=== PATIENT | male | born 1935 | race Caucasian/White ===

== ENCOUNTER 2019-10-30 21:38 | Emergency (ER) | payer MEDICARE, OTHER, SELFPAY ==
[2019-10-30 21:53] VITALS: BP 176/119; PULSE 101; RESP 16; TEMP 36.4; O2SAT 96; BMI 25.5
[2019-10-30 22:38] LABS: Add Urine Microscopic? NO
[2019-10-30 22:43] LABS: Basophils # 0.1 10^3/uL (0.0-0.1); Eosinophils # 0.1 10^3/uL (0.0-0.8); Eosinophils % 1.2 %; Hemoglobin 15.1 g/dL (11.7-16.6); Lymphocytes # 1.3 10^3/uL (0.8-4.8); Lymphocytes % 11.2 %; Mean Corpuscular HGB Conc 32.8 g/dL (30.0-36.0); Mean Corpuscular Volume 94.5 fL (80-94); Monocytes # 1.5 10^3/uL (0.2-0.9); Monocytes % 12.8 %; Neutrophils # 8.5 10^3/uL (1.8-7.7); Neutrophils % 73.6 %; Nucleated Red Blood Cells % 0 %; Platelet Count 224 10^3/cmm (130-400); Red Blood Count 4.87 10^6/uL (4.1-5.3); White Blood Count 11.5 10^3/uL (4.0-10.0)
[2019-10-30 22:50] LABS: Bilirubin Urine Neg (NEGATIVE); Blood Urine Neg (Negative); Glucose Urine UA Norm (Normal); Ketones Urine Negative (Negative); Leukocyte Esterase Urine Negative (Negative); Nitrate Urine Negative (Negative); Protein Urine Neg (Negative); Specific Gravity, Urine 1.005 (1.005-1.030); Urine Appearance Clear (CLEAR); Urine Color Yellow (Yellow); Urobilinogen Urine Norm (Negative); pH Urine 6.5 (5-7)
[2019-10-30 23:04] LABS: Alanine Aminotransferase 19 U/L (0-41); Albumin Level 4.8 g/dL (3.5-5.2); Alkaline Phosphatase 99 IU/L (40-130); Anion Gap 14.2 (5-19); Aspartate Amino Transferase 24 U/L (0-40); Blood Urea Nitrogen 23 mg/dL (8-23); Calcium 10.2 mg/Dl (8.8-10.2); Carbon Dioxide 28 mmol/L (22-29); Chloride 99 mmol/L (98-107); Globulin 2.8 g/dL (1.3-4.6); Glucose 144 mg/dL (74-106); Potassium 4.2 mmol/L (3.5-5.1); Sodium 137 mmol/L (136-145); Total Bilirubin 0.9 mg/dL (0.15-1.2); Total Protein 7.6 g/dL (6.6-8.7)
[2019-10-31 00:58] VITALS: BP 180/114; PULSE 92; RESP 18; O2SAT 96
--- NOTE | 2019-10-31 01:05 | ED_ITS ---
Entered by Marino Keys, acting as scribe for Oct 30, 2019 21:38 HPI - Male Genitourinary General: Chief complaint: Urogenital-Male Stated complaint: difficulty urinating Time Seen by Provider: 10/31/19 01:05 Source: patient Mode of arrival: ambulatory Limitations: no limitations History of Present Illness: HPI Narrative: 84 yo m came to the er pov with spouse for unable to urinate. Onset was today. Pt states that he can only go a few drops at this time. Pt states that he has not been able to urinate all day and that he is in alot of pain. Pt states that he is very bloated. PT also states that he took miralax this morning due to also being constipated. MD Complaint: testicle pain Onset (ago): day(s) (today) Duration: constant Severity: moderate Relieving factors: none Exacerbating factors: urination Associated symptoms: Reports swelling Review of Systems General: Reports: 10 or more systems reviewed and unremarkable except in HPI and below Const: Denies: fever Eyes: Denies: change in vision ENMT: Denies: throat pain Card: Denies: chest pain Resp: Denies: shortness of breath GI: Denies: abdominal pain : Reports: difficulty urinating and decreased urine ouput; Denies: flank pain Musc: Denies: neck pain Skin/Breast: Denies: rash Neuro: Denies: headache Psych: Denies: anxiety Endo: Denies: excessive urination Andrzej/Lymph: Denies: easy bruising All/Imm: Denies: hives PFSH ED PFSH: Statuses (acute, chronic, etc) shown below reflect problem list status as previously entered and may not be historically accurate Social History Smoking and tobacco status: never smoked Physical Exam Const: COMMON NORMALS: oriented x3 and alert Resp: COMMON NORMALS: clear to auscultation bilaterally EFFORT & INSPECTION: Yes able to speak in complete sentences, No tachypneic and No respiratory distress AUSCULTATION: clear to auscultation bilaterally Cardio: COMMON NORMALS: regular rhythm RHYTHM: regular rhythm HEART SOUNDS: no murmurs GI: COMMON NORMALS: soft to palpation INSPECTION: Yes abdominal distension AUSCULTATION: Yes normoactive bowel sounds PALPATION: Yes soft and Yes tender Details: other (Suprapubic) : COMMON NORMALS: Yes no CVA tenderness BLADDER/KIDNEY EXAM: Yes no CVA tenderness Back/Pelvis: COMMON NORMALS: no CVA tenderness Extremity: GENERAL: Yes normal exam except as noted Neuro: COMMON NORMALS: oriented x3 SENSORIUM/ORIENTATION: Yes alert Course Vital Signs: Vital signs: Vital Signs Temperature 98.3 F 10/31/19 02:07 Pulse Rate 74 10/31/19 02:07 Respiratory Rate 18 10/31/19 02:07 Blood Pressure 182/88 10/31/19 02:07 Pulse Oximetry 96 10/31/19 02:07 MDM - Male MDM Narrative: Medical decision making narrative: Patient was bladder scanned with greater than a liter found. Ruiz catheter was placed with decompression of the bladder and significantly decreased symptoms. He will be allowed home with a leg bag to follow-up either with his primary care physician, or urology if his PCP is not comfortable managing the Ruiz Lab Data: Labs: Lab Results 10/30/19 10/30/19 10/30/19 Range/Units 21:44 22:34 22:34 WBC 11.5 H (4.0-10.0) 10^3/ uL RBC 4.87 (4.1-5.3) 10^6/u L Hgb 15.1 (11.7-16.6) g/dL Hct 46.0 (42.0-52.0) % MCV 94.5 H (80-94) fL MCH 31.0 (28.0-34.0) pg MCHC 32.8 (30.0-36.0) g/dL RDW 13.0 (12.1-15.1) % Plt Count 224 (130-400) 10^3/c mm MPV 10.0 (7.4-10.4) fL Neut % (Auto) 73.6 % Lymph % (Auto) 11.2 % Ellis % (Auto) 12.8 % Eos % (Auto) 1.2 % Baso % (Auto) 1.0 % Neut # (Auto) 8.5 H (1.8-7.7) 10^3/u L Lymph # (Auto) 1.3 (0.8-4.8) 10^3/u L Ellis # (Auto) 1.5 H (0.2-0.9) 10^3/u L Eos # (Auto) 0.1 (0.0-0.8) 10^3/u L Baso # (Auto) 0.1 (0.0-0.1) 10^3/u L Nucleated RBC % (a uto) 0 % Nucleated RBCs # 0.0 /100WBC Sodium 137 (136-145) mmol/L Potassium 4.2 (3.5-5.1) mmol/L Chloride 99 (98-107) mmol/L Carbon Dioxide 28 (22-29) mmol/L Anion Gap 14.2 (5-19) BUN 23 (8-23) mg/dL Creatinine 0.9 (0.7-1.2) mg/dL Glucose 144 H (74-106) mg/dL Calcium 10.2 (8.8-10.2) mg/Dl Total Bilirubin 0.9 (0.15-1.2) mg/dL AST 24 (0-40) U/L ALT 19 (0-41) U/L Alkaline Phosphata se 99 (40-130) IU/L Total Protein 7.6 (6.6-8.7) g/dL Albumin 4.8 (3.5-5.2) g/dL Globulin 2.8 (1.3-4.6) g/dL Urine Color Yellow (Yellow) Urine Appearance Clear (CLEAR) Urine pH 6.5 (5-7) Ur Specific Gravit y 1.005 (1.005-1.030) Urine Protein Neg (Negative) Urine Glucose (UA) Norm (Normal) Urine Ketones Negative (Negative) Urine Occult Blood Neg (Negative) Urine Nitrate Negative (Negative) Urine Bilirubin Neg (NEGATIVE) Urine Urobilinogen Norm (Negative) mg/dL Ur Leukocyte Sarah ase Negative (Negative) Discharge Plan Discharge Patient Disposition: Home, Self-Care Clinical Impression: Acute retention of urine Condition: Stable Prescriptions: No Action Amino Acid PO DAILY RF: 0 aspirin 81 mg Tablet,Delayed Release (Dr/Ec) 81 mg PO DAILY RF: 0 tamsulosin 0.4 mg Capsule 0.4 mg PO DAILY RF: 0 diltiazem HCl 120 mg Capsule,Extended Release 24 Hr 120 mg PO DAILY RF: 0 esomeprazole magnesium 40 mg Capsule,Delayed Release(Dr/Ec) 40 mg PO DAILY RF: 0 Vytorin 10-20 10-20 mg Tablet 1 tab PO QPM RF: 0 Vesicare 10 mg Tablet 10 mg PO DAILY RF: 0 Glucosamine PO DAILY RF: 0 Multi Vitamin PO DAILY RF: 0 Viagra PO PRN PRN (Reason: intercourse) RF: 0 Vitamin B-12 PO DAILY RF: 0 Discharge Orders: Discharge Order (Routine); Ordered 10/31/19 Ordered By: Phong Looney Referrals: Deshaun Marie MD [Physician] - 4-7 days Tamiko Louis DO [Primary Care Provider] - Discharge Diet: Usual diet Discharge Activity: Resume usual activity Patient Instructions: Urinary Retention in Men (ED), Ruiz Catheter Placement and Care (ED), Urinary Leg Bag (GEN) Activity Restrictions/Additional Instructions: Return for increasing pain, blood in the urine, fever, mental status changes, other concerning symptoms. Follow-up with your doctor, or urology next week. Call for an appointment. Discharge Date/Time: 10/31/19 02:32 Coding Level of Care Code ED Lightning Protection Installer for Chg Fwd The documentation recorded by the Massimo baker Stephanie Lyn, accurately reflects the service I personally performed and the decisions made by Aayush jorgensen Jeremy John, DO Oct 30, 2019 21:38
--- NOTE | 2019-10-31 01:25 | PC.NURSE ---
bladder scan done on patient per ED physician verbal order. bladder scanner scanned >999ml in bladder. ed physician notified.
[2019-10-31 02:07] VITALS: BP 182/88; PULSE 74; RESP 18; TEMP 36.8; O2SAT 96
--- NOTE | 2019-11-02 15:26 | DCPLANNER ---
manager car had message to schedule a follow up appointment for patient with Dr. Marie. manager car spoke with Sena, gave clinic patients information. manager car was told that patients information would be printed and given to Pippa for review. Clinic will call patient with appointment information, caseworker protective services will call clinic for appointment information.
--- NOTE | 2019-11-03 13:48 | DCPLANNER ---
Patient has a follow up appointment scheduled for October, at 2:00. Patient is aware of appointment.
--- NOTE | 2019-11-18 15:17 | DCPLANNER ---
Patient did attend appointment with Frank.
== END 2019-10-31 02:32 | disposition home or self-care (01) ==
PROVIDERS: Physician Assistant; Emergency Provider Emergency Medicine; PCP Family Medicine
DX: R33.9 Retention of urine, unspecified (principal)
CPT/HCPCS: 51702; 80053; 81003; 85025; 99282

== ENCOUNTER → 2019-11-16 09:59 | Outpatient (BNVA) | payer MEDICARE, OTHER, SELFPAY | PROVIDERS: PCP Family Medicine; Visit Provider Urology | DX: R33.9 Retention of urine, unspecified (principal); N40.1 Benign prostatic hyperplasia with lower urinary tract symptoms; N13.8 Other obstructive and reflux uropathy; N40.2 Nodular prostate without lower urinary tract symptoms | CPT/HCPCS: 81001 ==

== ENCOUNTER 2019-12-25 09:34 | Outpatient (CLI) | payer MEDICARE, OTHER, SELFPAY ==
[2019-12-25 10:18] LABS: Prostate Specific Antigen 10.54 ng/mL (0-4)
== END 2019-12-25 09:35 | disposition home or self-care (01) ==
LOC: LAB 09:34
PROVIDERS: PCP Family Medicine; Visit Provider Urology
DX: N40.1 Benign prostatic hyperplasia with lower urinary tract symptoms (principal); N13.8 Other obstructive and reflux uropathy
CPT/HCPCS: 84153

== ENCOUNTER → 2019-12-30 07:39 | Outpatient (BNVA) | payer MEDICARE, OTHER, SELFPAY | PROVIDERS: PCP Family Medicine; Visit Provider Urology | DX: N13.8 Other obstructive and reflux uropathy (principal); N40.1 Benign prostatic hyperplasia with lower urinary tract symptoms; R97.20 Elevated prostate specific antigen [PSA]; N40.2 Nodular prostate without lower urinary tract symptoms | CPT/HCPCS: 81001 ==

== ENCOUNTER → 2020-01-18 10:03 | Outpatient (BNVA) | payer MEDICARE, OTHER, SELFPAY | PROVIDERS: PCP Family Medicine; Visit Provider Urology | DX: R97.20 Elevated prostate specific antigen [PSA] (principal) | CPT/HCPCS: 88305 ==

== ENCOUNTER 2020-01-28 07:36 | Outpatient (CLI) | payer MEDICARE, OTHER, SELFPAY ==
--- NOTE | 2020-01-28 08:00 | NM_ITS ---
WS: [id number] NUCLEAR MEDICINE WHOLE BODY BONE SCAN HISTORY: PROSTATE CANCER COMPARISON: None available. TECHNIQUE: The patient was injected with 26.8 mCi of Technetium 99m HDP and serial whole-body scintig pritesh have been performed with anterior and posterior images. Large [id number] imaging of the skull and LEFT ribs. Focal area of intense uptake in the anterior LEFT sixth rib. 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 Bilateral knee replacements and photopenic defects. No abnormality within the spine. Normal soft tissue uptake. Kidneys are both visualized. NM/NM bone scan whole body* [id number] IMPRESSION: 1. Focal intense uptake in the anterior LEFT sixth rib. LEFT rib radiographs w ere performed and prior CTs which included the lower thorax dating back to 2011 are reviewed. There is a sclerotic focus which is then present since 2011 and this LEFT anterior sixth rib. Therefore benign process. 2. No evidence for prostate metastatic disease.
[2020-01-28 08:21] LABS: Blood Urea Nitrogen 21 mg/dL (8-23)
[2020-01-28] MEDS: iodixanol 320 mg/mL 100mL Btl IV (08:37)
--- NOTE | 2020-01-28 09:00 | CT_ITS ---
WS: [id number] CT ABDOMEN AND PELVIS WITH AND WITHOUT CONTRAST HISTORY: PROSTATE CANCER TECHNIQUE: Unenhanced 5 mm axial imaging first performed through the abdomen. Post contrast imaging t hrough the abdomen and pelvis. Oral contrast has been provided. Sagittal and coronal reformats are s ubmitted. All CT scans at [facility] use at least one of these dose optimization techniqu es: automated exposure control; mA and/or kV adjustment per patient size (includes targeted exams whe re dose is matched to clinical indication); or iterative reconstruction. CONTRAST: Visipaque 320; 95 mL IV. DLP: 1567.87 mGy.cm COMPARISON: 01/04/2019 Chronic emphysematous changes and dependent changes at the lung bases. No nodules or pneumonia. Heart size is slightly enlarged. Small amount of pericardial fluid over the RIGHT heart. Large portion of the stomach is intrathoracic. Similar to the prior study. Liver is normal size. Several cysts are noted with the largest measuring 1.9 cm in the RIGHT lobe. No rmal gallbladder and spleen. Marked atrophy of the pancreas with no mass. No adrenal mass. Kidneys ar e enhancing normally. There is a focal scar with thinning of the cortex upper pole RIGHT kidney. No m ass or obstruction. Moderate atherosclerosis aorta. No adenopathy or fluid. Marked distention of the colon with fecal material. No obstructive pattern. Marked distention of the urinary bladder. Urinary bladder extends over a length of 16.4 cm. There is a small diverticulum from the dome of the bladder. Additional diverticulum RIGHT lateral. Prostate gland is slightly enlarged and heterogeneous. Prostate gland measures 5.1 x 4.8 x 4.6 cm. Ar eas of decreased attenuation, decreased enhancement and central prostate calcifications. No significa nt enhancement in the periprostate fat. No adenopathy. No osteoblastic or osteolytic bone disease. Mild degenerative changes in the spine. CT/CT abdomen pelvis wo/w [id number] IMPRESSION: 1. Large portion of the stomach is intrathoracic, similar to the prior study. 2. Stable hepatic hypodensities. Probably cysts. 3. Cortical scar upper pole RIGHT kidney. 4. Marked distention of the urinary bladder. Consider bladder outlet obstructi on. There are also several bladder diverticula. 5. Heterogeneous mildly enlarged prostate gland. May be related to patient's k nown prostate cancer but developing abscesses would appear similar. 6. Severe constipation.
--- NOTE | 2020-01-28 10:22 | XR_ITS ---
WS: [id number] LEFT RIBS, MULTIPLE VIEWS HISTORY: COMPARISON W/BONE SCAN COMPARISON: Bone scan 01/28/[address] 01/04/2019 and 11/28/2011. Lungs and mediastinum: Visualized LEFT lung is clear. Ribs: Sclerotic focus in the anterior lateral LEFT sixth rib. Sclerotic focus measures approximately 7 mm. Upon reviewing prior CT evaluations dating back to 2011 the sclerotic focus was probably presen t then. Therefore not likely metastatic prostate related. XR/XR ribs LT mn 3V w CXR1V [id number] IMPRESSION: Sclerotic focus in the anterior LEFT sixth rib has been present since the prior CT from 2011. Therefore, due to long-term stability likely benign process and not related to patient's prostate cancer.
== END 2020-01-28 07:37 | disposition home or self-care (01) ==
LOC: NM 07:37
PROVIDERS: Family Provider Family Medicine; PCP Family Medicine; Visit Provider Urology
DX: C61 Malignant neoplasm of prostate (principal); K59.00 Constipation, unspecified; N32.89 Other specified disorders of bladder; N40.0 Benign prostatic hyperplasia without lower urinary tract symptoms
CPT/HCPCS: 36415; 71101; 74178; 78306; 82565; 84520; A9561

== ENCOUNTER 2020-02-18 11:16 | Outpatient (CLI) | payer MEDICARE, OTHER, SELFPAY ==
--- NOTE | 2020-02-22 08:34 | N.ONRAD NP_ITS ---
Radiation Oncology New Patient Visit Patient: Omar Daniel MR#: [id number] : 1935> Age: 84> Sex: Male> Dictated by: Dr. Tavares Rodriguez Date of Service: 02/18/2020 Referring Physician(s) : Dr. 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 He underwent confirmatory transrectal needle biopsy on January 15, 2020. Radiotherapy to date: Summary > No prior radiation therapy. Chief Complaint / History of Present Illness: Mr. Omar Daniel is an 84-year-old gentleman with chronic urinary obstructive symptoms. He ultimately required indwelling urinary catheter in October 2019 he is urinary frequency has been in partially improved with Flomax 0.8 mg/day. He continues to have ongoing daytime frequency every 30 minutes in 0-1 time nocturia. His bowel function is stable but leans toward constipation. He and his live independently he has stable weight appetite and energy level. He has no pain anywhere. He has been followed by Dr. Marie and was found in December 25, 2019 had an elevated PSA of 10.54. He also was also found to have an abnormal digital rectal examination which prompted a biopsy Transrectal needle biopsy here on January 15, 2020 revealed [place] score 8 adenocarcinoma involving 8 of 12 biopsies and [place] score 7 adenocarcinoma involving 1 of 12 biopsies each involving 30 to 100% of each core sample. Staging evaluation included bone scan which revealed a single area of uptake in the left lateral rib. Follow-up plain films revealed sclerotic change at that site compatible with healed fracture. No evidence for occult metastatic disease was seen. CT scan of the abdomen and pelvis revealed enlarged prostate with no evidence for pelvic or retroperitoneal adenopathy and no hydronephrosis. On my review Current Medications: Allergies: Ibuprofen. Medical History: - Atrial flutter, - bph, - cochlear hearing loss, - type II diabetes. No history of collagen vascular disease. No previous radiation therapy. Surgical History: Cataract excision, cochlear implant, hernia repair, knee replacement, repair of deviated septum, right finger amputation and tonsillectomy. Family History: Father is at age 60. Mother is at age 37 having experienced tuberculosis. Social History: Last screened on 02/16/2020 - Yes - but has quit for 21 years. Smoked for 40 years. Last screened on 02/16/2020 - Active drinker 2 days/week. Patient indicated access to the following support systems: lives with spouse, significant other, family, or friends, lives in own house, supportive family/friends willing to assist with needs, and adequate transportation available for expected visits. Patient indicated the following nutritional habits: regular meals. Patient indicated participation in the following forms of activity: light exercise. 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 He has 3 children and 2 stepchildren. He has a distant history of smoking and quit in 1998. Current Complaints / Review of Systems: Constitutional - Complains of mild fatigue. Denies lack of appetite, fever, night sweats and change in weight. Eyes - Complains of blurred vision occasionally in the left eye. ENMT - Complains of problems with hearing in both ears. Complains of mouth dryness. Complains of mild altered taste. Complains of tinnitus. Denies dysphagia, ear pain and stomatitis. Neck - Denies neck pain and decreased range of motion. Integumentary - Denies rash. Cardiovascular - Complains of infrequent arrhythmias in which he has history of having a flutter. Denies chest pain and edema. Respiratory - Complains of a mild cough which is productive. Complains of dyspnea associated with normal activity. Complains of wheezing. Denies hemoptysis. Gastrointestinal - Complains of occasional constipation. Complains of heartburn / dyspepsia. Denies abdominal pain, diarrhea, melena / GI bleeding, nausea and vomiting. Genitourinary (M) - Complains of frequency, nocturia gets up occasionally and urgency occasionally. Denies dysuria and hematuria. Musculoskeletal - Complains of joint pain in which is generalized all over and related to Arthritis and muscle weakness in the upper extremity. Denies bone pain. Neurologic - Complains of intermittent dizziness that occurs with activity. Complains of headaches occasionally. Endocrine - Complains of Type 2 diabetes. Denies thyroid disease. Hematologic/Lymphatic - Denies tender or enlarged lymph nodes.. Vital Signs: Performed on 02/18/2020 12:37 PM BMI - 27.205 kg/m2 (high), Height - 73.00 in, Weight - 206.2 lbs, Temperature - 98.7 f, Pulse - 68, Respiration - 20, O2 Sat - 97 %, Pain - 0 and BP - 126/ 74 mm(hg). Physical Exam: Tall thin appropriate alert cooperative gentleman in no acute distress. HEENT examination was remarkable for cochlear implant in the left ear and hearing aid in the right ear. He had multiple Teeth. Lymph nodes he had no palpable cervical or supraclavicular adenopathy. Lungs were clear to auscultation. Heart was regular without murmur gallop. Abdominal examination was unremarkable. Extremities reveal no clubbing cyanosis or edema. He did have an amputated right first finger. Digital rectal examination revealed markedly abnormal rectal examination with a nodular hard right lobe of the prostate much larger than the relatively normal left lobe. Performance Status: 100 Pathology: He had Jarek score 7 in 1 and Jarek score 8 in 8 for a total of 9 of 12 biopsies as summarized above Lab: PSA in December 25, 2019 was 10.54 Imaging: See HPI Impression: High risk stage IIc (T2 cN0 M0) [place] score 7???8 adenocarcinoma the prostate he has significant disease involvement with 9 of 12 biopsies involved with each specimen 30 to 100% malignant he has no occult metastatic disease. He has good performance status for his age with no serious comorbidities. I outlined with him and his that he should be treated aggressively with curative intent. This will require a combination of androgen deprivation for at least 6 months in combination with definitive radiation therapy over 7 weeks. We would give hormonal therapy over 1 or 2-month period to give cyto-reduction. He then would undergo simulation for definitive treatment. Plan: We will now refer him to Dr. Gonsalves or Dr. Arciniega for androgen deprivation he will return here in 6 weeks for simulation with definitive radiation to follow with IMRT based treatment with IGR T target localization directed to the prostate with generous margin. In light of his negative CT scan and age I recommended treatment to the prostate alone and I did not recommend a pelvic component of treatment in his care. Signed by: 02/22/2020 8:33:25 AM <<Signature on File>> Time spent with patient: 60 minutes CPT Code: CPT Code:
== END 2020-02-18 11:17 | disposition home or self-care (01) ==
LOC: ONCMED 11:17
PROVIDERS: Family Provider Family Medicine; PCP Family Medicine; Referring Provider Urology; Visit Provider Radiology Radiation Oncology
DX: C61 Malignant neoplasm of prostate (principal); N40.1 Benign prostatic hyperplasia with lower urinary tract symptoms; H91.93 Unspecified hearing loss, bilateral; E11.9 Type 2 diabetes mellitus without complications; Z89.021 Acquired absence of right finger(s); Z87.891 Personal history of nicotine dependence
CPT/HCPCS: 99205

== ENCOUNTER 2020-02-22 07:38 | Outpatient (CLI) | payer MEDICARE, OTHER, SELFPAY ==
[2020-02-22] MEDS: lidocaine 1% INJ 20 mL INJECTION (08:40)
[2020-02-22] MEDS: goserelin acetate 10.8 mg Implant IM (08:50)
--- NOTE | 2020-02-22 16:36 | ONC CON_ITS ---
Dr. Gonsalves New Patient Note Patient: Omar Daniel < Unit #: [id number]: 1935 Dicatated By: Omar Gonsalves M.D.Date of Visit: Feb 22, 2020 Onc MED New Patient/Consult Referring Physician: Tavares Rodriguez M.D. Chief Complaint: Prostate cancer. History of Present Illness: This is an 84 year-old man with Jarek score 8 (4+4) adenocarcinoma of the prostate, by clinical evaluation stage IIC (T2c, N0, M0). This patient had pre-existing benign prostatic hypertrophy, for which he had been on treatment with tamsulosin 0.4 mg daily. In October he had presented with urinary retention. His symptoms improved after increasing the tamsulosin dosage to 0.8 mg daily. In the meantime, he was seen by Dr. Marie on 11/16/2019 and at that time he was found to have a grossly abnormal prostate exam. His PSA level from 12/25/2019 was elevated at 10.54 ng/mL. On 01/15/2020 he underwent TRUSP/biopsy. Ultrasound showed a hypoechoic lesion on the right side of the prostate. Biopsies from 6 sites within the right prostatic lobe were all positive for prostatic adenocarcinoma, mostly Jarek score 8 (4+4). The left prostatic lobe showed involvement in 3/6 sites, Phoenix score 7-8. He had staging with bone scan and CT abdomen/pelvis on 01/28/2020. The bone scan showed a focal area of intense uptake within the anterior left sixth rib, but with evidence of prior fracture noted on current rib x-ray and on prior CT scans. The abdomen/pelvis CT showed marked distention of the urinary bladder but with heterogeneous mildly enlarged prostate. A large portion of the stomach was noted to be intrathoracic, but similar to a prior study from December 2018. Stable hepatic hypodensities are felt to be consistent with cyst. There was no lymphadenopathy or other evidence of metastatic disease. He had radiation oncology consultation with Dr. Tavares Rodriguez on 02/18/2020. He had recommended androgen deprivation therapy to begin 1 month prior to radiation and extending for a minimum of 6 months. He is seen now for initiation of the androgen deprivation therapy. He has been feeling good generally. He has good energy/activity tolerance. ECOG score 0. Appetite also is good. His weight fluctuates, but overall it remains stable. He has no fever, night sweats, or hot flashes. He has chronic sinusitis symptoms with some associated cough. He has no shortness of breath or chest pain. He does have a history of atrial flutter. He complains of dry mouth. He has acid reflux associated with hiatal hernia, but it is managed very well with Nexium. His bowels typically move every 2 to 3 days, but that is a chronic pattern for him. He still has some hesitancy with urination and decreased flow, but bladder function has been adequate with the higher dose of tamsulosin. He has generalized arthritis pain, but it is managed adequately with Aleve. He does not complain of headache. He does report having dizziness, which he thinks may be medication related. He has some neuropathy in his feet. Past Medical History: His medical history includes cochlear hearing loss, degenerative arthritis, hiatal hernia/GERD, and type II diabetes, diet controlled. He has a history of atrial flutter and a prior history of benign prostatic hypertrophy. Past Surgical History: His surgical/procedural history includes bilateral cataract excisions, bilateral total knee arthroplasty, cochlear implant, septoplasty/rhinoplasty, tonsillectomy, umbilical hernia repair, colonoscopy in 2006, and right finger amputation in 1954. Medications: Aspirin Adult Low Strength 1 Tablet (of 81 mg) Tablet, chewable Oral daily, Dilt-XR 1 Capsule (of 120 mg) Capsule SR 24 HR Oral daily, Esomeprazole Magnesium 1 Capsule (of 40 mg) Capsule Delayed Release Oral daily, Ezetimibe-Simvastatin 1 Tablet (of 10-20 mg) Oral at bedtime, Glucosamine Chondroitin Triple 1 Tablet Oral daily, Multivitamin Men 50+ 1 Tablet Oral daily, Tamsulosin HCl 2 Capsule (of 0.4 mg) Capsule Oral at bedtime, VESIcare 1 Tablet (of 10 mg) Oral daily, Viagra 1 (25 mg) Tablet Oral PRN, Vitamin B 12 1 (5000 mcg) Tablet Oral daily Allergies: Ibuprofen Social History: Mr. Daniel is and he is retired. He served in the [employer] for 40 years. He has a history of pipe smoking for 40 years, but he quit in 1998. Alcohol use estimated at 1 or 2 drinks every couple of weeks. Family History: Father in his late 70s with hardening of the arteries. Mother of tuberculosis when he was this 1-year-old. He had 7 sisters, 2 of whom had breast cancer. Another had fibrocystic disease of the breast, and another with rheumatic heart disease. A brother with complications of dementia. Review Of Symptoms: Constitutional - His energy level is good. He is able to do all his normal activity. His appetite is good and weight is stable. No fever, chills, hot flashes, or night sweats. ECOG score is 0, Eyes - He had cataract surgery two years ago, ENMT - He has hearing loss and he has a cochlear implant. He has chronic sinusitis. No mouth sores. No sore throat or difficulty swallowing, Hematologic/Lymphatic - He bruises easily, Respiratory - No shortness of breath. He has productive cough, attributable to sinusitis. No pleuritic pain or hemoptysis, Cardiovascular - No angina pain. He has a cardiac arrhythmia, Gastrointestinal - No nausea or vomiting. His acd reflux is well managed with Nexium. No diarrhea or constipation. His normal bowel habits are every 2-3 days. No blood in the stool or black stools. His last colonoscopy was 10 years ago, Genitourinary (M) - No dysuria or hematuria. No urinary frequency. No urgency or incontinence. He is taking 0.8 mg Flomax daily to help with urinary flow, Musculoskeletal - He has generalized arthritis pain in his knees that is adequately managed with Aleve, Integumentary - No skin complications, Neurologic - No headache. He has dizziness with positional changes. He has neuropathy in his feet, Psychiatric - No anxiety or depression. No insomnia. Vital Signs: Performed on Feb 22, 2020 07:49: 0, 20.45, 2.41 sq.m, 84 in (HIGH), 97 %, 64 /min, 16 /min, 125/68 mm(hg), 97.6 F (LOW), and 205.2 lbs (LOW). Physical Examination: Constitutional - He appears to be in good general health, Eyes - Sclerae nonicteric. Conjunctivae clear, ENMT - No lesions noted in the oral cavity, Neck - No mass or thyromegaly, Hematologic/Lymphatic - No cervical, clavicular, or axillary adenopathy, Respiratory - Lungs are clear with good air movement bilaterally, Cardiovascular - Heart rhythm is regular. There is a II/ systolic murmur at the aortic area. There is no gallop or rub noted, Abdomen - Soft and non-tender. Liver and spleen are not enlarged. There is no abdominal mass or ascites noted and there is no inguinal adenopathy, Back/Spine - No spine or CVA tenderness noted, Extremities - No edema. Posterior tibial pulses are palpable bilaterally, Integumentary - No rashes. No suspicious skin lesions noted, Neurologic - No focal neurologic deficits noted. Impression: 1. Patient with Phoenix score 8 (4+4) adenocarcinoma of the prostate. By clinical evaluation his disease is stage IIC (T2c, N0, M0). 2. He underwent TRUSP/biopsy on 01/15/2020. 3. He had pre-existing benign prostatic hypertrophy. He had presented with urinary retention in October 2019. 4. He has a positive family history of breast cancer, which raises the possibility of BRCA related cancer. His other medical illnesses include: 5. Hiatal hernia/GERD. 6. He has a history of cardiac arrhythmia (atrial flutter). 7. Type 2 diabetes, diet controlled. 8. Peripheral neuropathy. 9. Degenerative arthritis. Plan: The biopsy results and clinical applications were reviewed with the patient. His prostate cancer appears to be locally advanced but confined and potentially treatable with radiation. In the setting of stage IIC disease with high Jarek score, he has recommended to initiate androgen deprivation therapy and to continue for a minimum of 6 months and potentially for up to 2 years. He will start treatment today with Zoladex 10.8 mg and he will be given bicalutamide 50 mg daily for 14 days. He will follow-up with repeat PSA level with the radiation oncologist in 1 month. I will see him again in 3 months. I did review side effects including the potential for hot flashes and mood changes, as well as the potential for osteoporosis. He has pre-existing erectile dysfunction which had not responded to treatment with Viagra. We discussed the fact that this is likely to be permanent. Signed By: Omar Gonsalves M.D. <<Signature on File>>
== END 2020-02-22 07:39 | disposition home or self-care (01) ==
PROVIDERS: Family Provider Family Medicine; PCP Family Medicine; Visit Provider Internal Medicine Medical Oncology
DX: C61 Malignant neoplasm of prostate (principal); N40.1 Benign prostatic hyperplasia with lower urinary tract symptoms; K44.9 Diaphragmatic hernia without obstruction or gangrene; K21.9 Gastro-esophageal reflux disease without esophagitis; I48.92 Unspecified atrial flutter; E11.42 Type 2 diabetes mellitus with diabetic polyneuropathy; N52.9 Male erectile dysfunction, unspecified; M19.90 Unspecified osteoarthritis, unspecified site; R39.12 Poor urinary stream; R39.11 Hesitancy of micturition; Z80.3 Family history of malignant neoplasm of breast; Z79.4 Long term (current) use of insulin; Z79.899 Other long term (current) drug therapy; Z79.818 Long term (current) use of other agents affecting estrogen receptors and estrogen levels
CPT/HCPCS: 96372; 96402; 99205; J2001; J9202

== ENCOUNTER 2020-04-26 06:51 | Outpatient (RCR) | payer MEDICARE, OTHER, SELFPAY ==
--- NOTE | 2020-03-28 | CT_ITS ---
Radiation Therapy Planning CT images; total exam DLP: 973.56 mGy-cm MTDD
[2020-03-28 11:02] LABS: Basophils # 0.1 10^3/uL (0.0-0.1); Basophils % 0.7 %; Eosinophils # 0.2 10^3/uL (0.0-0.8); Eosinophils % 2.3 %; Hematocrit 45.8 % (42.0-52.0); Lymphocytes # 1.4 10^3/uL (0.8-4.8); Lymphocytes % 19.9 %; Mean Corpuscular HGB Conc 32.8 g/dL (30.0-36.0); Mean Corpuscular Volume 97.7 fL (80-94); Mean Platelet Volume 9.5 fL (7.4-10.4); Monocytes # 0.9 10^3/uL (0.2-0.9); Monocytes % 13.2 %; Neutrophils # 4.4 10^3/uL (1.8-7.7); Neutrophils % 63.6 %; Nucleated Red Blood Cells % 0 %; Platelet Count 198 10^3/cmm (130-400); Red Blood Count 4.69 10^6/uL (4.1-5.3)
[2020-03-28 11:38] LABS: Prostate Specific Antigen 1.15 ng/mL (0-4)
[2020-03-28 11:49] LABS: Alanine Aminotransferase 17 U/L (0-41); Albumin Level 4.3 g/dL (3.5-5.2); Alkaline Phosphatase 80 IU/L (40-130); Anion Gap 14.8 (5-19); Aspartate Amino Transferase 19 U/L (0-40); Blood Urea Nitrogen 17 mg/dL (8-23); Calcium 9.7 mg/dL (8.5-10.5); Carbon Dioxide 26 mmol/L (22-29); Chloride 103 mmol/L (98-107); Globulin 2.8 g/dL (1.3-4.6); Glucose 104 mg/dL (65-115); Osmolality Calculated 287 mOsm/kg (285-295); Potassium 3.8 mmol/L (3.5-5.1); Sodium 140 mmol/L (136-145); Total Bilirubin 1.3 mg/dL (0.15-1.2); Total Protein 7.1 g/dL (6.6-8.7)
[2020-03-28 12:03] LABS: Testosterone Total 2.5 ng/dL (193-740)
--- NOTE | 2020-04-05 11:08 | N.ONRAD NP_ITS ---
Radiation Oncology Weekly Treatment Management Patient: Omar Daniel MR#: [id number] : 1935> Age: 84> Sex: Male Dictated by: Yanna Harris Date of Service: 04/05/2020 Referring Physician(s) : Dr. Deshaun Marie Diagnosis: C61 - Malignant neoplasm of prostate, Diagnosed 02/22/2020 (Active) Stage IIC, T2c, N0, M0, P>=10<20, G4 Patient presents today for check-up by registered nurse. The patients has had Course: Prostate 2019 Treatment Site: Prostate 78Gy, Ref. ID: [id number], Energy: 6X, Dose/Fx (cGy): 200, #Fx: , Dose Correction (cGy): 0, Total Dose (cGy): 1,000, Start Date: 03/30/2020, Elapsed Days: 6. Patient Denies any problems at this time Nursing assessment of patient as follows: Constitutional Complains of fatigue occasionally. Denies lack of appetite, fever and night sweats. Gastrointestinal Complains of intermittent constipation. Denies diarrhea. No rectal bleeding or irritation. Genitourinary (M) Complains of nocturia gets up about 2 times per night. Denies dysuria, frequency and urgency. Questions encouraged and answered. I encouraged patient to call with any concerns. Patient verbalized understanding and denied any further needs at this time. Vital Signs: Performed on 04/05/2020 10:37 AM BMI - 26.413 kg/m2 (high), Height - 73.00 in, Weight - 200.2 lbs, Temperature - 98.3 f, Pulse - 60, Respiration - 20, O2 Sat - 97 %, Pain - 0 and BP - 159/ 77 mm(hg)(high/). Signed by: Yanna Harris>04/05/2020 11:07:12 AM <<Signature on File>>
--- NOTE | 2020-04-12 12:46 | ONCRAD TMN_ITS ---
Radiation Oncology Weekly Treatment Management Patient: Omar Daniel MR#: [id number] : 1935> Age: 84> Sex: Male Dictated by: Dr. Santhosh Landry Date of Service: 04/12/2020 Referring Physician(s) : Dr. Deshaun Marie Primary Diagnosis: C61 - Malignant neoplasm of prostate, Diagnosed 02/22/2020 (Active) Stage IIC, T2c, N0, M0, P>=10<20, G4 Radiotherapy to date: Course: Prostate 2019, Treatment Site: Prostate 78Gy, Ref. ID: [id number], Energy: 6X, Dose/Fx (cGy): 200, #Fx: , Dose Correction (cGy): 0, Total Dose (cGy): 2,000, Start Date: 03/30/2020, Elapsed Days: 13 Current Complaints/Interval History: Mr. 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 He went up to 2 Flomax per day in October of this year. 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 Once the sense of obstruction clears, his urine stream flows freely. He has not had dysuria, pyuria, or hematuria. In terms of bowels, he has had loose stools. He has been eating a great deal of fresh fruit. He took 1 Imodium today. His performance status is good though he does have mild fatigue occasionally. Constitutional Complains of fatigue. Denies lack of appetite, fever and night sweats. Gastrointestinal Complains of diarrhea which is characterized as loose, watery which started a few days ago. Has been eating a lot of fruit the past few days. Denies constipation. No rectal bleeding or irritation Genitourinary (M) Complains of nocturia gets up about 2 to 5 times per night. Denies frequency but is having urinary retention around 8:00 pm and will last for a few hours and urgency. Current Medications: Aspirin Adult Low Strength, dilt-XR, esomeprazole Magnesium, ezetimibe-Simvastatin, glucosamine Chondroitin Triple, multivitamin Men 50+, tamsulosin HCl, vESIcare, viagra, vitamin B 12. Allergies: Ibuprofen. Vital Signs: Performed on 04/12/2020 10:45 AM BMI - 26.176 kg/m2 (high), Height - 73.00 in, Weight - 198.4 lbs, Temperature - 97.0 f, Pulse - 60, Respiration - 20, O2 Sat - 96 % and BP - 145/ 75 mm(hg)(high/). Physical Exam: Appears stable. Alert oriented no distress. Performance Status: 0 - Fully active, able to carry on all predisease activities without restrictions. (ECOG) Lab: None pending in Radiation Oncology. Test performed on 03/28/2020 10:44 AM MCV - 97.7 fl (high), Bilirubin, Total - 1.3 mg/dl (high) and Testosterone, Total - 2.5 ng/dl (low). Imaging: No new diagnostic imaging was performed since the last weekly treatment visit. All radiation therapy related imaging (including but not limited to kV, MV, and CBCT generated images) was reviewed. Appropriate changes, if any, were made to assure accurate target localization. Impression/Plan: Tolerating treatment well .Discussed side effects. Continue treatment as planned. Discussed that if he has severe obstructive symptoms he may need to see Dr. Marie for a bladder scan residual. I told him he is unlikely to need a catheter but that it is possible. In addition we discussed his diet. We discussed a combination of reducing fiber and using Imodium AD. Continue Flomax twice daily. CPT: 88899 Signed by: Dr. Santhosh Landry>04/12/2020 12:44:55 PM <<Signature on File>>
--- NOTE | 2020-04-19 11:19 | ONCRAD TMN_ITS ---
Radiation Oncology Weekly Treatment Management Patient: Omar Daniel MR#: [id number] : 1935> Age: 84> Sex: Male Dictated by: Dr. Santhosh Landry Date of Service: 04/19/2020 Referring Physician(s) : Dr. Deshaun Marie Diagnosis: C61 - Malignant neoplasm of prostate, Diagnosed 02/22/2020 (Active) Stage IIC, T2c, N0, M0, P>=10<20, G4 Radiotherapy to date: Course: Prostate 2019, Treatment Site: Prostate 78Gy, Ref. ID: [id number], Energy: 6X, Dose/Fx (cGy): 200, #Fx: , Dose Correction (cGy): 0, Total Dose (cGy): 3,000, Start Date: 03/30/2020, Elapsed Days: Chief Complaint/History of Present Illness: Tumor dose 3000 cGy in 15 fractions. Mr. Daniel continues to have obstructive symptoms. They are stable compared to last week. He continues to have the pattern of worsening symptoms about 8 PM at night and then through the night. By morning his symptoms have improved. He takes 2 Flomax at 9 to 10:00 at night. He has no dysuria. I recommended experimenting with the timing of the Flomax. I suggested he take 1 twice per day or take both in the afternoon. In doing so I told him he may get more benefit through the night. He will consider doing that, though he did not fully commit. The Flomax does produce some lightheadedness and so he understands that he needs to be particularly careful with it if he takes it in the afternoon. He is having no bowel complaints at this time. Stools are soft. His performance status continues to be off slightly. He has had fatigue since he began hormonal therapy.. This is an 84 year-old man with [place] score 8 (4+4) adenocarcinoma of the prostate, by clinical evaluation stage IIC (T2c, N0, M0). This patient had pre-existing benign prostatic hypertrophy, for which he had been on treatment with tamsulosin 0.4 mg daily. In October he had presented with urinary retention. His symptoms improved after increasing the tamsulosin dosage to 0.8 mg daily. In the meantime, he was seen by Dr. Marie on 11/16/2019 and at that time he was found to have a grossly abnormal prostate exam. His PSA level from 12/25/2019 was elevated at 10.54 ng/mL. On 01/15/2020 he underwent TRUSP/biopsy. Ultrasound showed a hypoechoic lesion on the right side of the prostate. Biopsies from 6 sites within the right prostatic lobe were all positive for prostatic adenocarcinoma, mostly [place] score 8 (4+4). The left prostatic lobe showed involvement in 3/6 sites, Jraek score 7-8. He had staging with bone scan and CT abdomen/pelvis on 01/28/2020. The bone scan showed a focal area of intense uptake within the anterior left sixth rib, but with evidence of prior fracture noted on current rib x-ray and on prior CT scans. The abdomen/pelvis CT showed marked distention of the urinary bladder but with heterogeneous mildly enlarged prostate. A large portion of the stomach was noted to be intrathoracic, but similar to a prior study from December 2018. Stable hepatic hypodensities are felt to be consistent with cyst. There was no lymphadenopathy or other evidence of metastatic disease. He had radiation oncology consultation with Dr. Tavares Rodriguez on 02/18/2020. He had recommended androgen deprivation therapy to begin 1 month prior to radiation and extending for a minimum of 6 months. He is seen now for initiation of the androgen deprivation therapy. He has been feeling good generally. He has good energy/activity tolerance. ECOG score 0. Appetite also is good. His weight fluctuates, but overall it remains stable. He has no fever, night sweats, or hot flashes. He has chronic sinusitis symptoms with some associated cough. He has no shortness of breath or chest pain. He does have a history of atrial flutter. He complains of dry mouth. He has acid reflux associated with hiatal hernia, but it is managed very well with Nexium. His bowels typically move every 2 to 3 days, but that is a chronic pattern for him. He still has some hesitancy with urination and decreased flow, but bladder function has been adequate with the higher dose of tamsulosin. He has generalized arthritis pain, but it is managed adequately with Aleve. He does not complain of headache. He does report having dizziness, which he thinks may be medication related. He has some neuropathy in his feet. Current Medications: Aspirin Adult Low Strength, dilt-XR, esomeprazole Magnesium, ezetimibe-Simvastatin, glucosamine Chondroitin Triple, multivitamin Men 50+, tamsulosin HCl, vESIcare, viagra, vitamin B 12. Allergies: Ibuprofen. Current Complaints/Review of Systems: Constitutional - Complains of mild fatigue. Denies lack of appetite, fever, night sweats and change in weight. Gastrointestinal - Complains of intermittent diarrhea. Denies constipation. No rectal bleeding or irritation. Genitourinary (M) - Complains of nocturia gets up about 6 times per night. Denies dysuria, frequency, hematuria and urgency. Having urinary retention at nighttime. Vital Signs: Performed on 04/19/2020 10:47 AM BMI - 26.361 kg/m2 (high), Height - 73.00 in, Weight - 199.8 lbs, Temperature - 98.3 f, Pulse - 60, Respiration - 18, O2 Sat - 97 %, Pain - 0 and BP - 134/ 70 mm(hg). Physical Exam: Appears stable, no skin erythema or desquamation. Performance Status: 0 - Fully active, able to carry on all predisease activities without restrictions. (ECOG) Lab: None pending in Radiation Oncology. Test performed on 03/28/2020 10:44 AM MCV - 97.7 fl (high), Bilirubin, Total - 1.3 mg/dl (high) and Testosterone, Total - 2.5 ng/dl (low). Imaging: No new diagnostic imaging was performed since the last weekly treatment visit. All radiation therapy related imaging (including but not limited to kV, MV, and CBCT generated images) was reviewed. Appropriate changes, if any, were made to assure accurate target localization. Impression/Plan: Tolerating treatment with expected side effects. Continue treatment as planned. CPT: 60456 Signed by: Dr. Santhosh Landry>04/19/2020 11:18:27 AM <<Signature on File>>
--- NOTE | 2020-04-26 10:59 | ONCRAD TMN_ITS ---
Radiation Oncology Weekly Treatment Management Patient: Omar Daniel MR#: [id number] : 1935 Age: 84 Sex: Male Dictated by: Dr. Santhosh Landry Date of Service: 04/26/2020 Referring Physician(s) : Dr. Deshaun Marie Diagnosis: C61 - Malignant neoplasm of prostate, Diagnosed 02/22/2020 (Active) Stage IIC, T2c, N0, M0, P>=10<20, G4 Radiotherapy to date: Course: Prostate 2019, Treatment Site: Prostate 78Gy, Ref. ID: [id number], Energy: 6X, Dose/Fx (cGy): 200, #Fx: , Dose Correction (cGy): 0, Total Dose (cGy): 3,800, Start Date: 03/30/2020, Elapsed Days: Chief Complaint/History of Present Illness: Tumor dose 3800 cGy in 19 fractions. Urinary pattern is unchanged. He decided to keep taking the 2 Flomax at night. The last 2 nights he has had nocturia x2. No bowel complaints. He is slightly constipated. He will try to take care of that with diet. He was told to be cautious with laxatives. He has mild fatigue but denies any change in his activity level. Current Medications: Aspirin Adult Low Strength, dilt-XR, esomeprazole Magnesium, ezetimibe-Simvastatin, glucosamine Chondroitin Triple, multivitamin Men 50+, tamsulosin HCl, vESIcare, viagra, vitamin B 12. Allergies: Ibuprofen. Current Complaints/Review of Systems: Constitutional - Complains of mild fatigue. Denies lack of appetite, fever and night sweats. Gastrointestinal - Complains of occasional constipation. Denies diarrhea. No rectal bleeding or irritation. Genitourinary (M) - Complains of nocturia gets up 2 times per night. Still has urine retention in the evenings.. Denies dysuria, frequency and urgency. Vital Signs: Performed on 04/26/2020 10:36 AM BMI - 26.361 kg/m2 (high), Height - 73.00 in, Weight - 199.8 lbs, Temperature - 97.6 f, Pulse - 64, Respiration - 18, O2 Sat - 96 %, Pain - 0 and BP - 146/ 82 mm(hg)(high/). Physical Exam: Appears stable, no skin erythema or desquamation. Performance Status: 1 - No physically strenuous activity, but ambulatory and able to carry out light or sedentary work (e.g. office work, light house work). (ECOG) Lab: None pending in Radiation Oncology. Imaging: No new diagnostic imaging was performed since the last weekly treatment visit. All radiation therapy related imaging (including but not limited to kV, MV, and CBCT generated images) was reviewed. Appropriate changes, if any, were made to assure accurate target localization. Impression/Plan: Tolerating treatment well with expected side effects. Continue treatment as planned. CPT: 70444 Signed by: Dr. Santhosh Landry>04/26/2020 10:58:58 AM <<Signature on File>>
== END 2020-04-26 23:59 | disposition home or self-care (01) ==
LOC: ONCMED 06:51
PROVIDERS: Internal Medicine Medical Oncology; PCP Family Medicine; Visit Provider Specialist
DX: Z51.0 Encounter for antineoplastic radiation therapy (principal); C61 Malignant neoplasm of prostate; R19.7 Diarrhea, unspecified; N40.1 Benign prostatic hyperplasia with lower urinary tract symptoms; R39.11 Hesitancy of micturition; R33.9 Retention of urine, unspecified; R39.15 Urgency of urination; Z79.82 Long term (current) use of aspirin
CPT/HCPCS: 36415; 77300; 77301; 77334; 77336; 77338; 77385; 80053; 84153; 84403; 85025

== ENCOUNTER → 2020-05-05 13:11 | Outpatient (BNVA) | payer MEDICARE, OTHER, SELFPAY | PROVIDERS: PCP Family Medicine; Visit Provider Nurse Practitioner Family | DX: N40.1 Benign prostatic hyperplasia with lower urinary tract symptoms (principal); N13.8 Other obstructive and reflux uropathy; R33.9 Retention of urine, unspecified; C61 Malignant neoplasm of prostate | CPT/HCPCS: 81001 ==

== ENCOUNTER 2020-05-25 06:45 | Outpatient (RCR) | payer MEDICARE, OTHER, SELFPAY ==
--- NOTE | 2020-05-03 19:21 | ONCRAD TMN_ITS ---
Radiation Oncology Weekly Treatment Management Patient: Omar Daniel MR#: [id number] : 1935 Age: 85 Sex: Male Dictated by: Dr. Edward Stewart Date of Service: 05/03/2020 Referring Physician(s) : Dr. Deshaun Marie Diagnosis: C61 - Malignant neoplasm of prostate, Diagnosed 02/22/2020 (Active) Stage IIC, T2c, N0, M0, P>=10<20, G4 Radiotherapy to date: Course: Prostate 2019, Treatment Site: Prostate 78Gy, Ref. ID: [id number], Energy: 6X, Dose/Fx (cGy): 200, #Fx: , Dose Correction (cGy): 0, Total Dose (cGy): 4,600, Start Date: 03/30/2020, Elapsed Days: 34 Chief Complaint/History of Present Illness: The patient reports diarrhea/loose stools which occurs 5-6 times per day. He also has persistent nocturia 5 times per night. Furthermore, he reports moderate fatigue. Current Medications: Aspirin Adult Low Strength, dilt-XR, esomeprazole Magnesium, ezetimibe-Simvastatin, glucosamine Chondroitin Triple, multivitamin Men 50+, tamsulosin HCl, vESIcare, viagra, vitamin B 12. Allergies: Ibuprofen. Current Complaints/Review of Systems: Constitutional - Complains of moderate fatigue. Denies lack of appetite, fever, rigors / chills and change in weight. Gastrointestinal - Complains of diarrhea which is characterized as loose, semisolid in which he has 5 to 6 episodes per day. Denies constipation. No rectal bleeding or irritation. Genitourinary (M) - Complains of frequency and nocturia gets up about 5 times per night. Denies dysuria, hematuria and urgency. Having urinary retention in the later part of the day that lasts until about 1:00 in the morning. Vital Signs: Performed on 05/03/2020 10:33 AM BMI - 26.493 kg/m2 (high), Height - 73.00 in, Weight - 200.8 lbs, Temperature - 97.6 f, Pulse - 58, Respiration - 18, O2 Sat - 97 %, Pain - 0 and BP - 153/ 74 mm(hg)(high/). Physical Exam: Appears stable, no skin erythema or desquamation. Performance Status: 1 - No physically strenuous activity, but ambulatory and able to carry out light or sedentary work (e.g. office work, light house work). (ECOG) Lab: None pending in Radiation Oncology. Imaging: No new diagnostic imaging was performed since the last weekly treatment visit. All radiation therapy related imaging (including but not limited to kV, MV, and CBCT generated images) was reviewed. Appropriate changes, if any, were made to assure accurate target localization. Impression/Plan: Tolerating treatment well with expected side effects. Continue treatment as planned. We discussed adding loperamide to his medication regimen to reduce his frequency of diarrhea/loose stools. The patient is afraid to do this, for he fears that it will cause him to become constipated. CPT: 87631 Signed by: Dr. Edward Stewart>05/03/2020 7:19:41 PM <<Signature on File>>
--- NOTE | 2020-05-17 11:25 | ONCRAD TMN_ITS ---
Radiation Oncology Weekly Treatment Management Patient: Omar Daniel MR#: [id number] : 1935> Age: 85> Sex: Male Dictated by: Dr. Edward Stewart Date of Service: 05/17/2020 Referring Physician(s) : Dr. Deshaun Marie Diagnosis: C61 - Malignant neoplasm of prostate, Diagnosed 02/22/2020 (Active) Stage IIC, T2c, N0, M0, P>=10<20, G4 Radiotherapy to date: Course: Prostate 2019, Treatment Site: Prostate 78Gy, Ref. ID: [id number], Energy: 6X, Dose/Fx (cGy): 200, #Fx: 33 / 39, Dose Correction (cGy): 0, Total Dose (cGy): 6,600, Start Date: 03/30/2020, Elapsed Days: 48 Interim History: The patient reports no new symptoms this week. He continues to self catheterize 5 times per day, he has episodic constipation, and mild fatigue. Current Medications: Aspirin Adult Low Strength, dilt-XR, esomeprazole Magnesium, ezetimibe-Simvastatin, glucosamine Chondroitin Triple, multivitamin Men 50+, tamsulosin HCl, viagra, vitamin B 12. Allergies: Ibuprofen. Current Complaints/Review of Systems: Constitutional - Complains of mild fatigue. Denies lack of appetite, fever and night sweats. Gastrointestinal - Complains of intermittent constipation. Denies diarrhea. No rectal bleeding or irritation. Genitourinary (M) - Denies dysuria and hematuria. Has to self catheterize 5 times per day. Vital Signs: Performed on 05/17/2020 10:51 AM BMI - 26.281 kg/m2 (high), Height - 73.00 in, Weight - 199.2 lbs, Temperature - 98.0 f, Pulse - 62, Respiration - 18, O2 Sat - 98 %, Pain - 0 and BP - 150/ 77 mm(hg)(high/). Physical Exam: Lungs are clear to auscultation bilaterally. Performance Status: 1 - No physically strenuous activity, but ambulatory and able to carry out light or sedentary work (e.g. office work, light house work). (ECOG) Lab: None pending in Radiation Oncology. Test performed on 03/28/2020 10:44 AM MCV - 97.7 fl (high), Bilirubin, Total - 1.3 mg/dl (high) and Testosterone, Total - 2.5 ng/dl (low). Imaging: All radiation therapy related imaging (including but not limited to kV, MV, and CBCT generated images) was reviewed. Appropriate changes, if any, were made to assure accurate target localization. Impression/Plan: Tolerating treatment well with expected side effects. Continue treatment as planned. CPT: 93975 Signed by: Dr. Edward Stewart>05/17/2020 11:24:08 AM <<Signature on File>>
[2020-05-19 11:07] LABS: Basophils # 0.1 10^3/uL (0.0-0.1); Basophils % 1.1 %; Eosinophils # 0.2 10^3/uL (0.0-0.8); Eosinophils % 3.2 %; Hematocrit 42.1 % (42.0-52.0); Hemoglobin 13.6 g/dL (11.7-16.6); Lymphocytes # 0.9 10^3/uL (0.8-4.8); Lymphocytes % 13.5 %; Mean Corpuscular HGB Conc 32.3 g/dL (30.0-36.0); Mean Corpuscular Hemoglobin 31.6 pg (28.0-34.0); Mean Corpuscular Volume 97.9 fL (80-94); Mean Platelet Volume 9.5 fL (7.4-10.4); Monocytes # 0.9 10^3/uL (0.2-0.9); Monocytes % 13.2 %; Neutrophils # 4.52 10^3/uL (1.8-7.7); Neutrophils % 68.8 %; Nucleated Red Blood Cells % 0 %; Platelet Count 196 10^3/cmm (130-400); Red Cell Distribution Width 13.5 % (12.1-15.1); White Blood Count 6.6 10^3/uL (4.0-10.0)
[2020-05-19 11:30] LABS: Prostate Specific Antigen 0.045 ng/mL (0-4)
[2020-05-19 11:51] LABS: Alanine Aminotransferase 22 U/L (0-41); Albumin Level 4.2 g/dL (3.5-5.2); Alkaline Phosphatase 70 IU/L (40-130); Anion Gap 12.2 (5-19); Aspartate Amino Transferase 24 U/L (0-40); Blood Urea Nitrogen 19 mg/dL (8-23); Calcium 9.9 mg/dL (8.5-10.5); Carbon Dioxide 28 mmol/L (22-29); Chloride 103 mmol/L (98-107); Globulin 2.6 g/dL (1.3-4.6); Glucose 127 mg/dL (65-115); Osmolality Calculated 286 mOsm/kg (285-295); Potassium 4.2 mmol/L (3.5-5.1); Sodium 139 mmol/L (136-145); Total Bilirubin 1.1 mg/dL (0.15-1.2); Total Protein 6.8 g/dL (6.6-8.7)
[2020-05-19 12:04] LABS: Testosterone Total < 2.5 ng/dL (193-740)
[2020-05-23] MEDS: lidocaine 1% INJ 20 mL INJECTION (09:40)
[2020-05-23] MEDS: goserelin acetate 10.8 mg Implant IM (09:50)
--- NOTE | 2020-05-25 08:27 | ONCRAD TMN_ITS ---
Radiation Oncology Weekly Treatment Management Patient: Omar Daniel MR#: [id number] : 1935 Age: 85 Sex: Male Dictated by: Dr. Edward Stewart Date of Service: 05/24/2020 Referring Physician(s) : Dr. Deshaun Marie Diagnosis: C61 - Malignant neoplasm of prostate, Diagnosed 02/22/2020 (Active) Stage IIC, T2c, N0, M0, P>=10<20, G4 Radiotherapy to date: Course: Prostate 2019, Treatment Site: Prostate 78Gy, Ref. ID: [id number], Energy: 6X, Dose/Fx (cGy): 200, #Fx: 38 / 39, Dose Correction (cGy): 0, Total Dose (cGy): 7,600, Start Date: 03/30/2020, Elapsed Days: 55 Interim History: The patient has 1 fraction to go before completing radiotherapy. He reports continued dysuria and he continues to have to self catheterize approximately 5 times per day. He reports no diarrhea, but he does have semisolid stools. The patient attributes this to eating a lot of fruit. Current Medications: Aspirin Adult Low Strength, dilt-XR, esomeprazole Magnesium, ezetimibe-Simvastatin, glucosamine Chondroitin Triple, multivitamin Men 50+, naproxen Sodium, tamsulosin HCl, vitamin B 12, zoladex. Allergies: Ibuprofen. Current Complaints/Review of Systems: Constitutional - Complains of mild fatigue. Denies lack of appetite, fever and night sweats. Gastrointestinal - Complains of occasional diarrhea which is characterized as loose, semisolid. Denies constipation. No rectal bleeding or irritation. Genitourinary (M) - Complains of dysuria and is still having to do self catheterization. Does it 4 times during the day and 1 time at night. Vital Signs: Performed on 05/24/2020 11:08 AM BMI - 26.334 kg/m2 (high), Height - 73.00 in, Weight - 199.6 lbs, Temperature - 97.7 f, Pulse - 68, Respiration - 18, O2 Sat - 95 % (low), Pain - 0 and BP - 149/ 77 mm(hg)(high/). Physical Exam: Appears stable, no skin erythema or desquamation. Performance Status: 0 - Fully active, able to carry on all predisease activities without restrictions. (ECOG) Lab: None pending in Radiation Oncology. Test performed on 05/19/2020 10:50 AM MCV - 97.9 fl (high), Glucose - 127 mg/dl (high) and Testosterone, Total - 2.5 ng/dl (low). Imaging: No new diagnostic imaging was performed since the last weekly treatment visit. All radiation therapy related imaging (including but not limited to kV, MV, and CBCT generated images) was reviewed. Appropriate changes, if any, were made to assure accurate target localization. Impression/Plan: Tolerating treatment well with expected side effects. Continue treatment as planned. CPT: 78386 Signed by: Dr. Edward Stewart>05/25/2020 8:25:47 AM <<Signature on File>>
--- NOTE | 2020-05-25 08:55 | ONC FU_ITS ---
[facility] Patient Note Patient: Omar Daniel < Unit #: [id number]: 1935 Dictated By: Milton LillyDate of Visit: May 23, 2020 Onc MED Follow-Up/Prog Note Chief Complaint: Prostate cancer. History of Present Illness: Mr Daniel is an 85 year-old man with Washington score 8 (4+4) adenocarcinoma of the prostate, by clinical evaluation stage IIC (T2c, N0, M0). Mr Daniel had pre-existing benign prostatic hypertrophy, for which he had been on treatment with tamsulosin 0.4 mg daily. In October 2019 he had presented with urinary retention. His symptoms improved after increasing the tamsulosin dosage to 0.8 mg daily. In the meantime, he was seen by Dr. Marie on 11/16/2019 and at that time he was found to have a grossly abnormal prostate exam. His PSA level from 12/25/2019 was elevated at 10.54 ng/mL. On 01/15/2020 he underwent TRUSP/biopsy. Ultrasound showed a hypoechoic lesion on the right side of the prostate. Biopsies from 6 sites within the right prostatic lobe were all positive for prostatic adenocarcinoma, mostly Jarek score 8 (4+4). The left prostatic lobe showed involvement in 3/6 sites, Jarek score 7-8. He had staging with bone scan and CT abdomen/pelvis on 01/28/2020. The bone scan showed a focal area of intense uptake within the anterior left sixth rib, but with evidence of prior fracture noted on current rib x-ray and on prior CT scans. The abdomen/pelvis CT showed marked distention of the urinary bladder but with heterogeneous mildly enlarged prostate. A large portion of the stomach was noted to be intrathoracic, but similar to a prior study from December 2018. Stable hepatic hypodensities are felt to be consistent with cyst. There was no lymphadenopathy or other evidence of metastatic disease. He had radiation oncology consultation with Dr. Tavares Rodriguez on 02/18/2020. He had recommended androgen deprivation therapy to begin 1 month prior to radiation and extending for a minimum of 6 months. He did see Dr Gonsalves for initiation of the androgen deprivation therapy in January 2020. The biopsy results from December 2019 and clinical applications were reviewed with the patient. His prostate cancer appears to be locally advanced but confined and potentially treatable with radiation. In the setting of stage IIC disease with high Washington score, it has beenrecommended that he initiate androgen deprivation therapy and to continue for a minimum of 6 months and potentially for up to 2 years. He did start treatment on February 22, 2020 with Zoladex 10.8 mg and he was given bicalutamide 50 mg daily for 14 days. Mr Daniel is here today for followup. He states he is doing well overall. He states he has developed some hot flashes, but states they are tolerable. He denies any worsening fatigue. He denies fever or chills. He states overall he feels better. He states he is walking almost a mile every day and tolerated this well. He states his uphill and downhill. He states his takes his time but he is tolerating it well. He denies any worsening dyspnea or chest pain. He denies any palpitations. He states his bowels have been good. He had a little redness at the injection site on his last Zoladex but that resolved within a couple of days. There was no signs of infection at that time. He denies any abdominal pain. He denies any lower extremity edema or weakness. He is eating well. His ECOG is 0. He is currently undergoing radiation therapy of the prostate. He has completed 33 of 39 fractions at this point. Total planned dose is 6600 cGy. Past Medical History: Cochlear hearing loss Degenerative arthritis Hiatal hernia/GERD History of atrial flutter Prior history of benign prostatic hypertrophy Type II diabetes in 2009 Past Surgical History: Bilateral cataract excisions Bilateral total knee arthroplasty Cochlear implant Septoplasty/rhinoplasty Tonsillectomy Umbilical hernia repair Colonoscopy in 2006 Right finger amputation in 1954 Allergies: Ibuprofen Medications: Aspirin Adult Low Strength 1 Tablet (of 81 mg) Tablet, chewable Oral daily AZO Cranberry Urinary Tract 2 Tablet (of 250-60 mg) Capsule Oral daily Dilt-XR 1 Capsule (of 120 mg) Capsule SR 24 HR Oral daily Esomeprazole Magnesium 1 Capsule (of 40 mg) Capsule Delayed Release Oral daily Ezetimibe-Simvastatin 1 Tablet (of 10-20 mg) Oral at bedtime Glucosamine Chondroitin Triple 1 Tablet Oral daily Multivitamin Men 50+ 1 Tablet Oral daily Naproxen Sodium 1 Tablet (of 220 mg) Oral q 8 hours PRN Tamsulosin HCl 2 Capsule (of 0.4 mg) Capsule Oral at bedtime Vitamin B 12 1 (5000 mcg) Tablet Oral daily Zoladex Subcutaneous Family History: Mr. Daniel's mother at age 37: tuberculosis. Mr. Daniel's father at age 60. Mr. Daniel has 1 brother who is . He has 7 sisters: 1 alive, 6 . Mr. Daniel's first sister's breast cancer. Another sister's breast cancer. Another sister's breast cancer. Father in his late 70s with hardening of the arteries. Mother of tuberculosis when he was this 1-year-old. He had 7 sisters, 2 of whom had breast cancer. Another had fibrocystic disease of the breast, and another with rheumatic heart disease. A brother with complications of dementia. Social History: Mr. Daniel is and he is retired. Mr. Daniel quit smoking 21 years ago but had smoked for 40 years. He drinks occasionally. He consumes 2 drinks/day 2 days/week. Mr. Daniel reports the following support systems: lives with spouse, significant other, family, or friends, lives in own house, supportive family/friends willing to assist with needs, and adequate transportation available for expected visits. His diet consists of regular meals. He indicates his activity level as: light exercise. He served in the [employer] for 40 years. He has a history of pipe smoking for 40 years, but he quit in 1998. Alcohol use estimated at 1 or 2 drinks every couple of weeks. Review Of Symptoms: Constitutional Denies fevers, chills, night sweats, excessive fatigue or weight loss. Has some hot flashes but tolerable at present. Allergic/Immunologic No reactions. Eyes Denies significant visual changes. No diplopia. No amaurosis. ENMT Denies changes in hearing, sore throat, mouth sores, difficulty or changes in swallowing ability, and/or sinus drainage. Endocrine No diabetes, thyroid disease or hormone replacement. Denies hot flashes or night sweats. Hematologic/Lymphatic Denies easy bruising or bleeding. The patient denies any tender or palpable lymph nodes. Respiratory Denies dyspnea on exertion, chest pain, cough or hemoptysis. Denies orthopnea. Cardiovascular Denies anginal chest pain, palpitations or orthopnea. Gastrointestinal Denies nausea, vomiting, diarrhea, GI bleeding, or constipation. Denies change in bowel habits and/or stool color, no heartburn or early satiety. Genitourinary (M) Denies hematuria, dysuria, increased frequency, urgency, hesitancy or incontinence. Musculoskeletal Denies joint pain, swelling or redness. No decreased range of motion. Integumentary Denies chronic rashes, inflammation, ulcerations or skin changes. Neurologic Denies headache, blurred vision, and no areas of focal weakness or numbness. Normal gait. No sensory problems. Psychiatric Denies insomnia, depression, jud or mood swings. Vital Signs: Performed on May 23, 2020 09:00 Height - 73.00 in Weight - 220.4 lbs (HIGH) BSA - 2.24 sq.m BMI - 29.08 Temperature - 96.9 F (LOW) Pulse - 66 /min Respiration - 17 /min BP - 152/72 mm(hg) (HIGH) O2 Sat - 98 % Pain - 0,0 - Fully active, able to carry on all predisease activities without restrictions. (ECOG) Physical Examination: Constitutional Alert, oriented, no acute distress. Skin pink, warm and dry. Head Normocephalic; atraumatic. Eyes Conjunctivae and sclerae are clear and without icterus. Pupils are reactive and equal. ENPR left ear hearing device noted. Neck Supple without masses or thyromegaly. No jugular venous distension. Hematologic/Lymphatic No petechiae or purpura. No tender or palpable lymph nodes in the cervical or supraclavicular areas. Respiratory Lungs are clear to auscultation without rhonchi or wheezing. Cardiovascular Regular rate and rhythm of heart without murmurs,clicks, gallops or rubs. Abdomen Non-tender, non-distended, no masses or ascites. No guarding or rebound tenderness. No pulsatile masses. Back/Spine Non-tender to palpation. Extremities No visible deformities, no cyanosis, clubbing or edema. Musculoskeletal No tenderness or swelling, normal range of motion without obvious weakness. Integumentary No rashes or lesions. Neurologic No sensory or motor deficits, normal cerebellar function, normal gait. Psychiatric Alert and oriented times three. Coherent speech. Verbalizes understanding of our discussions today. Laboratory:Test performed on May 19, 2020 10:50 Sodium 139 mmol/L Testosterone, Total < 2.5 ng/dL Potassium 4.2 mmol/L Chloride 103 mmol/L CO2 28 mmol/L Anion Gap 12.2 BUN 19 mg/dL Creatinine 0.9 mg/dL Cr Clearance (Est) 79.0000 mL/min Glucose 127 mg/dL Calcium 9.9 mg/dL Protein, Total 6.8 g/dL Albumin 4.2 g/dL Globulin 2.6 g/dL Bilirubin, Total 1.1 mg/dL ALT (SGPT) 22 U/L AST (SGOT) 24 U/L Alkaline Phosphatase 70 IU/L WBC 6.6 10 3/uL RBC 4.30 10 6/uL HGB 13.6 g/dL HCT 42.1 % MCV 97.9 fL MCH 31.6 pg MCHC 32.3 g/dL RDW 13.5 % Platelet Count 196 10 3/cmm MPV 9.5 fL Neutrophils 4.52 10 3/uL Lymphocytes 0.9 10 3/uL Monocytes 0.9 10 3/uL Eosinophils 0.2 10 3/uL Basophils 0.1 10 3/uL Neutrophil % 68.8 % Lymphocyte % 13.5 % Monocyte % 13.2 % Eosinophil % 3.2 % Basophils % 1.1 % NRBC % 0 % PSA 0.045 ng/mL Impression: 1. Patient with Jarek score 8 (4+4) adenocarcinoma of the prostate. By clinical evaluation his disease is stage IIC (T2c, N0, M0). 2. He underwent TRUSP/biopsy on 01/15/2020. 3. He had pre-existing benign prostatic hypertrophy. He had presented with urinary retention in October 2019. 4. He has a positive family history of breast cancer, which raises the possibility of BRCA related cancer. His other medical illnesses include: 5. Hiatal hernia/GERD. 6. He has a history of cardiac arrhythmia (atrial flutter). 7. Type 2 diabetes, diet controlled. 8. Peripheral neuropathy. 9. Degenerative arthritis. The biopsy results and clinical applications were reviewed with the patient per Dr Gonsalves. His prostate cancer appears to be locally advanced but confined and potentially treatable with radiation. In the setting of stage IIC disease with high Jarek score, Dr Gonsalves recommended to initiate androgen deprivation therapy and to continue for a minimum of 6 months and potentially for up to 2 years. He did start with Zoladex 10.8 mg on 02/22/2020 and he was given bicalutamide 50 mg daily for 14 days. He was to follow-up with repeat PSA level with the radiation oncologist in 1 month. Mr Daniel has tolerated his first 3 months of Zoladex well. He did complete t he bicalutamide in February 2020. Plan: 1. Proceed with Zoladex 10.8 mg today as planned. 2. Labs from May 19, 2020 were reviewed in detail and discussed with and Mrs. Daniel WBC 6.6, hemoglobin 13.6 platelets 196,000 neutrophils of 4500 potassium 4.2 random glucose 127 creatinine 0.9 LFTs are normal alk phos was 70 total testosterone was less than 2.5 and PSA was 0.045. His blood pressure today was 152/72. 3. He has been encouraged to let us know if he feels the hot flashes are worsening or become intolerable. 4. He wants us to know that in the event he ever needs to be considered for MRI of the head that is not possible because he has metal in my head . 5. We will plan to see him back in 3 months with CBC CMP PSA and total testosterone. 6. Mr. Daniel was instructed to contact us in the interim should questions or problems arise. Signed By: Milton Lilly-, AOCNP Omar Gonsalves MD <<Signature on File>>
== END 2020-05-27 23:59 | disposition home or self-care (01) ==
LOC: ONCMED 06:45
PROVIDERS: Internal Medicine Medical Oncology; Absent Provider Radiology Radiation Oncology; PCP Family Medicine; Visit Provider Radiology Radiation Oncology
DX: Z51.0 Encounter for antineoplastic radiation therapy (principal); C61 Malignant neoplasm of prostate; R30.0 Dysuria; E11.42 Type 2 diabetes mellitus with diabetic polyneuropathy; M19.90 Unspecified osteoarthritis, unspecified site; K44.9 Diaphragmatic hernia without obstruction or gangrene; K21.9 Gastro-esophageal reflux disease without esophagitis; Z96.653 Presence of artificial knee joint, bilateral; Z79.818 Long term (current) use of other agents affecting estrogen receptors and estrogen levels; Z79.899 Other long term (current) drug therapy; Z79.82 Long term (current) use of aspirin; Z96.21 Cochlear implant status; Z89.021 Acquired absence of right finger(s); Z87.891 Personal history of nicotine dependence
CPT/HCPCS: 77336; 77385; 80053; 84153; 84403; 85025; 96372; 96402; 99214; J9202

== ENCOUNTER 2020-06-27 08:53 | Outpatient (CLI) | payer MEDICARE, OTHER, SELFPAY ==
--- NOTE | 2020-06-27 12:43 | ONCRAD EPV_ITS ---
Radiation Oncology Established Patient Visit Patient: María Nelson [id number] : 1935 Age: 85 Sex: Male Dictated by: Dr. Edward Stewart Date of Service: 06/27/2020 Referring Physician(s) : Dr. Deshaun Marie Diagnosis: cT2c N0 M0 High risk prostate cancer (diagnosed 12/2019), Grade Group 5, [place] grade 4+5, tumor was present in 9 of 12 cores (ranging from 30%-100% of tissue submitted), extensive perineural and intraneural involvement was seen on pathology, bone scan (01/2020) revealed focal intense uptake in the anterior left sixth rib but this was radiographically deemed to be benign due to comparative imaging dating back to 2011, CT of pelvis (01/2020) revealed no evidence of pelvic adenopathy or concern for metastasis, pretreatment PSA 10.54 ng/mL. Treatment rendered: The patient was treated with combined androgen deprivation therapy (initiated 01/2020) and definitive radiation therapy to the prostate and proximal seminal vesicles a total dose of 78 Gy/39 fractions (Dr Rodriguez - completed 05/25/2020 - pelvic lymph nodes not addressed). Current History: The patient is seen in follow-up today, approximately 1 month after completing radiotherapy. His acute side effects from treatment are resolving well. The patient has no complaints today. He reports no dysuria, no diarrhea, no bone pain, and no bloody stools. Current Medications: Aspirin Adult Low Strength, aZO Cranberry Urinary Tract, dilt-XR, esomeprazole Magnesium, ezetimibe-Simvastatin, glucosamine Chondroitin Triple, multivitamin Men 50+, naproxen Sodium, tamsulosin HCl, vitamin B 12, zoladex. Allergies: Ibuprofen. Current Complaints / Review of Systems: Constitutional - Complains of mild fatigue. Denies lack of appetite, fever, night sweats but has hot flashes and change in weight. Eyes - Denies blurred vision and double vision. ENMT - Complains of problems with hearing, mouth dryness and tinnitus. Denies dysphagia, ear pain, stomatitis and altered taste. Neck - Denies neck pain. Integumentary - Complains of rash on the left hand which is small round spot. Cardiovascular - Complains of arrhythmias. Denies chest pain and edema. Respiratory - Complains of a mild cough which is productive. Complains of dyspnea associated with normal activity. Denies wheezing. Gastrointestinal - Complains of intermittent constipation. Denies abdominal pain, diarrhea, heartburn / dyspepsia, melena / GI bleeding, nausea and vomiting. Genitourinary (M) - Denies dysuria and hematuria. Has to do self catheterization. Musculoskeletal - Complains of joint pain generalized all over. Denies bone pain. Neurologic - Complains of intermittent dizziness that occurs upon laying to standing. Denies abnormal gait and headaches. Endocrine - Complains of Type 2 diabetes. Denies thyroid disease. Hematologic/Lymphatic - Denies tender or enlarged lymph nodes.. Vital Signs: Performed on 06/27/2020 9:13 AM BMI - 26.018 kg/m2 (high), Height - 73.00 in, Weight - 197.2 lbs, Temperature - 97.6 f, Pulse - 76, Respiration - 20, O2 Sat - 96 %, Pain - 0 and BP - 100/ 62 mm(hg)(/low). Physical Exam: General: Alert and oriented x 3. No acute distress. HEENT: Normocephalic, atraumatic. Extraocular Movements Intact: Pupils Equal, Round, Reactive to Light and Accommodation: Sclerae anicteric. Oral cavity is clear without lesions, masses or ulcers. NECK: Supple without supraclavicular or jugular lymphadenopathy. LUNGS: Clear to auscultation bilaterally without rales, rhonchi or wheeze. HEART: Regular rate and rhythm, normal S1 and S2 without murmur, gallop or rub. MUSCULOSKELETAL: No tenderness or percussion pain over the axial skeleton, scapulae or pelvis. ABDOMEN: Soft, nontender, nondistended without masses or organomegaly. Bowell sounds are present. EXTREMITIES: No peripheral edema is identified. Limited motor and sensory examination are grossly intact and symmetric bilaterally. NEUROLOGIC: Cranial nerves II ???XII are grossly intact. Normal sensation, strength 5/5 in all extremities, normal gait, no ataxia. Performance Status: 1 - No physically strenuous activity, but ambulatory and able to carry out light or sedentary work (e.g. office work, light house work). (ECOG) Lab: None pending. Test performed on 05/19/2020 10:50 AM MCV - 97.9 fl (high), Glucose - 127 mg/dl (high) and Testosterone, Total - 2.5 ng/dl (low). Impression: The patient is an 85-year-old male with cT2c N0 M0 High risk prostate cancer, Grade group 5, Jarek grade 4+5, tumor involved 9 of 12 cores, positive extensive perineural and intraneural invasion, and pretreatment PSA was 10.54 ng/mL. The patient was treated with combined androgen deprivation therapy (initiated 01/2020) and definitive radiation therapy to the prostate and proximal seminal vesicles to a total dose of 78 Gy/39 fractions (Dr Rodriguez - completed 05/25/2020 - pelvic lymph nodes not addressed). The patient is seen in follow-up approximately 1 month after completing radiotherapy, and he reports no significant side effects associated with radiotherapy. He continues to self catheterize 5x/day as he was doing during radiotherapy, and he remains on tamsulosin at 0.8 mg/day. I recommend that the patient follow-up with us in 5 months with a PSA test, for a planned biochemical surveillance of every 6 months. I have no preference for which laboratory that is used, but I do have a personal preference that biochemical surveillance be completed by one consistent laboratory to mitigate risks associated with varying laboratory sensitivities & results. If Dr. Marie or Dr. Gonsalves orders a PSA test before Radiation Oncology???s planned visit in 5 months, then my ordered PSA test should be canceled, and future PSA surveillance should be conducted at the chosen laboratory. Further recommendations include: -) Consider continuing androgen deprivation therapy for an aggregate of 1-3 years as tolerated by the patient; -) Consider germline testing plus or minus somatic tumor testing as clinically indicated per NCCN. -) Continue following up with urology and medical oncology as scheduled. Signed by: 06/27/2020 12:41:50 PM <<Signature on File>> Time spent with patient: CPT Code: CPT Code:
== END 2020-06-27 08:54 | disposition home or self-care (01) ==
LOC: ONCMED 08:53
PROVIDERS: PCP Family Medicine; Visit Provider Radiology Radiation Oncology
DX: C61 Malignant neoplasm of prostate (principal)

== ENCOUNTER 2020-08-19 09:26 | Outpatient (CLI) | payer MEDICARE, OTHER, SELFPAY ==
[2020-08-19 10:04] LABS: Basophils # 0.1 10^3/uL (0.0-0.1); Basophils % 1.3 %; Eosinophils # 0.3 10^3/uL (0.0-0.8); Hematocrit 37.9 % (42.0-52.0); Hemoglobin 12.3 g/dL (11.7-16.6); Lymphocytes # 0.8 10^3/uL (0.8-4.8); Lymphocytes % 17.2 %; Mean Corpuscular HGB Conc 32.5 g/dL (30.0-36.0); Mean Corpuscular Hemoglobin 31.8 pg (28.0-34.0); Mean Corpuscular Volume 97.9 fL (80-94); Mean Platelet Volume 9.9 fL (7.4-10.4); Monocytes # 0.6 10^3/uL (0.2-0.9); Monocytes % 12.2 %; Neutrophils # 2.85 10^3/uL (1.8-7.7); Neutrophils % 62.1 %; Nucleated Red Blood Cells % 0 %; Platelet Count 172 10^3/cmm (130-400); Red Blood Count 3.87 10^6/uL (4.1-5.3); Red Cell Distribution Width 12.6 % (12.1-15.1); White Blood Count 4.6 10^3/uL (4.0-10.0)
[2020-08-19 10:24] LABS: Alanine Aminotransferase 22 U/L (0-41); Albumin Level 3.7 g/dL (3.5-5.2); Alkaline Phosphatase 65 IU/L (40-130); Anion Gap 12.9 (5-19); Aspartate Amino Transferase 22 U/L (0-40); Blood Urea Nitrogen 22 mg/dL (8-23); Carbon Dioxide 26 mmol/L (22-29); Chloride 106 mmol/L (98-107); Globulin 2.3 g/dL (1.3-4.6); Glucose 249 mg/dL (65-115); Osmolality Calculated 304 mOsm/kg (285-295); Potassium 3.9 mmol/L (3.5-5.1); Sodium 141 mmol/L (136-145); Total Bilirubin 1.1 mg/dL (0.15-1.2)
[2020-08-19 12:07] LABS: Testosterone Total 2.5 ng/dL (193-740)
[2020-08-19 12:17] LABS: Prostate Specific Antigen 0.006 ng/mL (0-4)
== END 2020-08-19 09:27 | disposition home or self-care (01) ==
LOC: ONCMED 09:29
PROVIDERS: PCP Family Medicine; Visit Provider Nurse Practitioner
DX: C61 Malignant neoplasm of prostate (principal)
CPT/HCPCS: 36415; 80053; 84153; 84403; 85025

== ENCOUNTER 2020-08-23 06:03 | Outpatient (CLI) | payer MEDICARE, OTHER, SELFPAY ==
--- NOTE | 2020-08-27 11:40 | ONC FU_ITS ---
Dr. Gonsalves Patient Follow-Up Note Patient: Omar Daniel Unit #: [id number]: 1935 Dicatated By: Omar Gonsalves M.D.Date of Visit:Aug 23, 2020 Onc Med Follow-up/Prog Note Chief Complaint: Prostate cancer. History of Present Illness: This is an 85 year-old man with Jarek score 8 (4+4) adenocarcinoma of the prostate, by clinical evaluation stage IIC (T2c, N0, M0). He had pre-existing benign prostatic hypertrophy, for which he had been on treatment with tamsulosin 0.4 mg daily. In October 2019 he had presented with urinary retention. His symptoms improved after increasing the tamsulosin dosage to 0.8 mg daily. In the meantime, he was seen by Dr. Marie on 11/16/2019 and at that time he was found to have a grossly abnormal prostate exam. His PSA level from 12/25/2019 was elevated at 10.54 ng/mL. On 01/15/2020 he underwent TRUSP/biopsy. Ultrasound showed a hypoechoic lesion on the right side of the prostate. Biopsies from 6 sites within the right prostatic lobe were all positive for prostatic adenocarcinoma, mostly [place] score 8 (4+4). The left prostatic lobe showed involvement in 3/6 sites, [place] score 7-8. He had staging with bone scan and CT abdomen/pelvis on 01/28/2020. The bone scan showed a focal area of intense uptake within the anterior left sixth rib, but with evidence of prior fracture noted on current rib x-ray and on prior CT scans. The abdomen/pelvis CT showed marked distention of the urinary bladder but with heterogeneous mildly enlarged prostate. A large portion of the stomach was noted to be intrathoracic, but similar to a prior study from December 2018. Stable hepatic hypodensities are felt to be consistent with cyst. There was no lymphadenopathy or other evidence of metastatic disease. He had radiation oncology consultation with Dr. Tavares Rodriguez on 02/18/2020. He had recommended androgen deprivation therapy to begin 1 month prior to radiation and extending for a minimum of 6 months. I had seen him initially on 02/22/2020. At that point he began androgen deprivation therapy with Zoladex 10.8 mg by subcutaneous injection together with bicalutamide 50 mg daily for 14 days. He began radiation to the prostate on 03/30/2020. He completed treatment on 05/25/2020 to a total dose of 7800 cGy. In the meantime, he received his second dose of Zoladex on 05/23/2020. His other medical illnesses include GERD, degenerative arthritis, and peripheral neuropathy. He has type 2 diabetes which is diet controlled. He has a history of atrial flutter. He had smoked a pipe for 40 years, but he quit in 1998. His family history is significant in the 2 sisters had breast cancer. He is seen for a follow-up visit. Following completion of radiation, he continued to have urinary retention, for which he is now self catheterizing 4 times a day. He is having no spontaneous voiding. His other main complaint is that he is developed a significant skin eruption. It is fairly generalized but most prominent on the forearms and hands. He did receive a steroid shot yesterday. He still has good energy and activity tolerance. ECOG score is 0. Appetite is good. He has gained weight. He has not had fever. He does have hot flashes and sweating. He reports having some cough, but no shortness of breath or chest pain. His acid reflux is adequately managed with Nexium. He does have some constipation. He reports having pain in every joint, but that is chronic. He says it has been going on for years and years. He does not complain of headache. He does have some dizziness. He has tingling in his feet. He has no other focal neurologic symptoms. Medications: Aspirin Adult Low Strength 1 Tablet (of 81 mg) Tablet, chewable Oral daily, AZO Cranberry Urinary Tract 2 Tablet (of 250-60 mg) Capsule Oral daily, [employer] Cortisone Intense Healing 1 Applicator (of 1 %) Cream Topical b.i.d., Dilt-XR 1 Capsule (of 120 mg) Capsule SR 24 HR Oral daily, Esomeprazole Magnesium 1 Capsule (of 40 mg) Capsule Delayed Release Oral daily, Ezetimibe-Simvastatin 1 Tablet (of 10-20 mg) Oral at bedtime, Glucosamine Chondroitin Triple 1 Tablet Oral daily, Multivitamin Men 50+ 1 Tablet Oral daily, Naproxen Sodium 1 Tablet (of 220 mg) Oral q 8 hours PRN, Tamsulosin HCl 2 Capsule (of 0.4 mg) Capsule Oral at bedtime, Vitamin B 12 1 (5000 mcg) Tablet Oral daily, Zoladex Subcutaneous Allergies: Ibuprofen Review of Systems: Constitutional - He has good energy and activity tolerance. Appetite is good. He has gained weight. He has not had fever. He does have hot flashes and sweating. ECOG score is 0, ENMT - He has chronic sinus congestion/drainage. He complains of dry mouth. No sore throat or difficulty swallowing, Hematologic/Lymphatic - No abnormal bruising or bleeding, Respiratory - No shortness of breath. He does have some cough. No pleuritic pain or hemoptysis, Cardiovascular - No angina pain. No palpitations, Gastrointestinal - No nausea or vomiting. His acid reflux is adequately managed with Nexium. He has some constipation. No blood in the stool or black stools, Genitourinary (M) - He developed urinary retention and he is now self catheterizing. He has no spontaneous voiding, Musculoskeletal - He reports having pain in every joint, but that has been going on for years and years, Integumentary - He has an extensive skin eruption. He was given a steroid shot yesterday, Neurologic - No headache. He does report having some dizziness. He has tingling in his feet. No other focal neurologic symptoms, Psychiatric - No anxiety or depression. No insomnia. Vital Signs: Performed on Aug 23, 2020 09:09 Height - 73.00 in Weight - 205.6 lbs (HIGH) BSA - 2.18 sq.m BMI - 27.13 Temperature - 97.8 F (LOW) Pulse - 55 /min (LOW) Respiration - 19 /min BP - 161/69 mm(hg) (HIGH) O2 Sat - 95 % (LOW) Pain - 0 Physical Examination: Constitutional - He looks pretty good generally, Eyes - Sclerae nonicteric. Conjunctivae clear, ENMT - No lesions noted in the oral cavity, Hematologic/Lymphatic - No cervical, clavicular, or axillary adenopathy, Respiratory - Lungs are clear with good air movement bilaterally, Cardiovascular - Heart rhythm is regular. There is a II/ systolic murmur. There is no gallop or rub noted, Abdomen - Soft. Liver and spleen are not enlarged. There is no abdominal mass or ascites noted and there is no inguinal adenopathy, Extremities - There is slight swelling at the left ankle, Integumentary - There is facial erythema and there are scattered erythematous lesions on the anterior and posterior trunk and on both legs. There is a more extensive erythematous eruption on the forearms and dorsum of the hands, which appears consistent with eczema, Neurologic - No focal neurologic deficits noted. Lab/Imaging: CBC shows hemoglobin 12.3 g, white blood cell count 4600, and platelet count 172,000. Comprehensive metabolic profile is unremarkable except for elevated nonfasting blood sugar. The PSA level now is down to 0.006 ng/mL with testosterone 2.5 ng/dL. Impression: 1. Patient with Jarek score 8 (4+4) adenocarcinoma of the prostate. By clinical evaluation his disease was stage IIC (T2c, N0, M0) at initial diagnosis in December 2019. 2. He began androgen deprivation therapy with Zoladex together with bicalutamide for 14 days on 02/22/2020. He began radiation to the prostate on 03/30/2020. He completed treatment on 05/25/2020 to a total dose of 7800 cGy. 3. He had pre-existing benign prostatic hypertrophy. He had presented with urinary retention in October 2019. 4. He has a positive family history of breast cancer, which raises the possibility of BRCA related cancer. His other medical illnesses include: 5. Hiatal hernia/GERD. 6. He has a history of cardiac arrhythmia (atrial flutter). 7. Type 2 diabetes, diet controlled. 8. Peripheral neuropathy. 9. Degenerative arthritis. He was given a second dose of Zoladex on 05/23/2020. His radiation was completed on 05/25/2020. His further clinical course was complicated by urinary retention, for which he is now self catheterizing. He has had a good response to the treatment by PSA level. However, he has not developed very significant skin eruption, for which he did receive a steroid injection yesterday. 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 Signed By: Omar Gonsalves M.D. <<Signature on File>>
== END 2020-08-23 06:04 | disposition home or self-care (01) ==
LOC: ONCMED 06:05
PROVIDERS: PCP Family Medicine; Visit Provider Internal Medicine Medical Oncology
DX: C61 Malignant neoplasm of prostate (principal); L27.0 Generalized skin eruption due to drugs and medicaments taken internally; T45.1X5A Adverse effect of antineoplastic and immunosuppressive drugs, initial encounter; N40.1 Benign prostatic hyperplasia with lower urinary tract symptoms; R33.8 Other retention of urine; K21.9 Gastro-esophageal reflux disease without esophagitis; K44.9 Diaphragmatic hernia without obstruction or gangrene; I48.92 Unspecified atrial flutter; E11.42 Type 2 diabetes mellitus with diabetic polyneuropathy; M19.90 Unspecified osteoarthritis, unspecified site; Z79.818 Long term (current) use of other agents affecting estrogen receptors and estrogen levels
CPT/HCPCS: 99214

== ENCOUNTER 2020-09-09 06:45 | Outpatient (CLI) | payer MEDICARE, OTHER, SELFPAY ==
[2020-09-09] MEDS: goserelin acetate 10.8 mg Implant IM (09:50)
[2020-09-09] MEDS: lidocaine 1% INJ 20 mL INJECTION (10:50)
== END 2020-09-09 06:46 | disposition home or self-care (01) ==
LOC: ONCMED 06:48
PROVIDERS: PCP Family Medicine; Visit Provider Internal Medicine Medical Oncology
DX: C61 Malignant neoplasm of prostate (principal); Z79.818 Long term (current) use of other agents affecting estrogen receptors and estrogen levels
CPT/HCPCS: 96372; 96402; J9202

== ENCOUNTER 2020-10-11 08:56 | Outpatient (CLI) | payer MEDICARE, OTHER, SELFPAY ==
[2020-10-11 09:38] LABS: Basophils # 0.1 10^3/uL (0.0-0.1); Basophils % 1.4 %; Eosinophils # 0.2 10^3/uL (0.0-0.8); Eosinophils % 3.7 %; Hematocrit 39.4 % (42.0-52.0); Hemoglobin 12.7 g/dL (11.7-16.6); Lymphocytes # 0.8 10^3/uL (0.8-4.8); Lymphocytes % 15.8 %; Mean Corpuscular HGB Conc 32.2 g/dL (30.0-36.0); Mean Corpuscular Hemoglobin 31.7 pg (28.0-34.0); Mean Corpuscular Volume 98.3 fL (80-94); Mean Platelet Volume 9.7 fL (7.4-10.4); Monocytes # 0.7 10^3/uL (0.2-0.9); Monocytes % 12.7 %; Neutrophils % 66.2 %; Nucleated Red Blood Cells % 0 %; Platelet Count 191 10^3/cmm (130-400); Red Blood Count 4.01 10^6/uL (4.1-5.3); White Blood Count 5.1 10^3/uL (4.0-10.0)
[2020-10-11 10:04] LABS: Alanine Aminotransferase 20 U/L (0-41); Albumin Level 3.8 g/dL (3.5-5.2); Alkaline Phosphatase 71 IU/L (40-130); Anion Gap 11.4 (5-19); Aspartate Amino Transferase 20 U/L (0-40); Blood Urea Nitrogen 20 mg/dL (8-23); Calcium 9.3 mg/dL (8.5-10.5); Carbon Dioxide 29 mmol/L (22-29); Chloride 102 mmol/L (98-107); Globulin 2.4 g/dL (1.3-4.6); Glucose 240 mg/dL (65-115); Osmolality Calculated 296 mOsm/kg (285-295); Potassium 4.4 mmol/L (3.5-5.1); Sodium 138 mmol/L (136-145); Total Bilirubin 0.9 mg/dL (0.15-1.2); Total Protein 6.2 g/dL (6.6-8.7)
[2020-10-11 13:05] LABS: Testosterone Total 2.5 ng/dL (193-740)
[2020-10-11 13:06] LABS: Prostate Specific Antigen 0.006 ng/mL (0-4)
== END 2020-10-11 08:57 | disposition home or self-care (01) ==
PROVIDERS: PCP Family Medicine; Visit Provider Internal Medicine Medical Oncology
DX: C61 Malignant neoplasm of prostate (principal)
CPT/HCPCS: 36415; 80053; 84153; 84403; 85025

== ENCOUNTER 2020-10-12 06:13 | Outpatient (CLI) | payer MEDICARE, OTHER, SELFPAY ==
--- NOTE | 2020-10-15 11:28 | ONC FU_ITS ---
Dr. Gonsalves Patient Follow-Up Note Patient: Omar Daniel Unit #: [id number]: 1935 Dicatated By: Omar Gonsalves M.D.Date of Visit:Oct 12, 2020 Onc Med Follow-up/Prog Note Chief Complaint: Prostate cancer. History of Present Illness: This is an 85 year-old man with Jarek score 8 (4+4) adenocarcinoma of the prostate, by clinical evaluation stage IIC (T2c, N0, M0). He had pre-existing benign prostatic hypertrophy, for which he had been on treatment with tamsulosin 0.4 mg daily. In October 2019 he had presented with urinary retention. His symptoms improved after increasing the tamsulosin dosage to 0.8 mg daily. In the meantime, he was seen by Dr. Marie on 11/16/2019 and at that time he was found to have a grossly abnormal prostate exam. His PSA level from 12/25/2019 was elevated at 10.54 ng/mL. On 01/15/2020 he underwent TRUSP/biopsy. Ultrasound showed a hypoechoic lesion on the right side of the prostate. Biopsies from 6 sites within the right prostatic lobe were all positive for prostatic adenocarcinoma, mostly [place] score 8 (4+4). The left prostatic lobe showed involvement in 3/6 sites, Belt score 7-8. He had staging with bone scan and CT abdomen/pelvis on 01/28/2020. The bone scan showed a focal area of intense uptake within the anterior left sixth rib, but with evidence of prior fracture noted on current rib x-ray and on prior CT scans. The abdomen/pelvis CT showed marked distention of the urinary bladder but with heterogeneous mildly enlarged prostate. A large portion of the stomach was noted to be intrathoracic, but similar to a prior study from December 2018. Stable hepatic hypodensities are felt to be consistent with cyst. There was no lymphadenopathy or other evidence of metastatic disease. He had radiation oncology consultation with Dr. Tavares Rodriguez on 02/18/2020. He had recommended androgen deprivation therapy to begin 1 month prior to radiation and extending for a minimum of 6 months. I had seen him initially on 02/22/2020. At that point he began androgen deprivation therapy with Zoladex 10.8 mg by subcutaneous injection together with bicalutamide 50 mg daily for 14 days. He began radiation to the prostate on 03/30/2020. He completed treatment on 05/25/2020 to a total dose of 7800 cGy. In the meantime, he received his second dose of Zoladex on 05/23/2020. His other medical illnesses include GERD, degenerative arthritis, and peripheral neuropathy. He has type 2 diabetes which is diet controlled. He has a history of atrial flutter. He had smoked a pipe for 40 years, but he quit in 1998. His family history is significant in that 2 sisters had breast cancer. INTERIM HISTORY: At his scheduled follow-up visit on 08/23/2020 he had developed a significant skin eruption. I felt the appearance was consistent with some type of hypersensitivity and I did opt to put his treatment on hold pending evaluation by his supervisor [employer]. The skin eruption subsequently did improve on steroid therapy, and he then continued androgen deprivation therapy with Zoladex 10.8 mg on 09/09/2020. He is seen for a follow-up visit. He has had some fatigue and he complains that his legs are little weak. He is able to do light work. His ECOG score is 1. He has good appetite. He has not had fever. He does have some hot flashes/sweating, but it is tolerable. He has chronic sinus drainage and he has a little bit of sore throat. He complains that he coughs all the time. He does not complain of shortness of breath or chest pain. He has no GI complaints. He is still self catheterizing. He sees his urologist again in November. Has generalized joint pain, which is unchanged. He has neuropathy in his legs and feet. Medications: Aspirin Adult Low Strength 1 Tablet (of 81 mg) Tablet, chewable Oral daily, AZO Cranberry Urinary Tract 2 Tablet (of 250-60 mg) Capsule Oral daily, [employer] Cortisone Intense Healing 1 Applicator (of 1 %) Cream Topical b.i.d., Dilt-XR 1 Capsule (of 120 mg) Capsule SR 24 HR Oral daily, Esomeprazole Magnesium 1 Capsule (of 40 mg) Capsule Delayed Release Oral daily, Ezetimibe-Simvastatin 1 Tablet (of 10-20 mg) Oral at bedtime, Glucosamine Chondroitin Triple 1 Tablet Oral daily, Multivitamin Men 50+ 1 Tablet Oral daily, Naproxen Sodium 1 Tablet (of 220 mg) Oral q 8 hours PRN, Tamsulosin HCl 2 Capsule (of 0.4 mg) Capsule Oral at bedtime, Vitamin B 12 1 (5000 mcg) Tablet Oral daily, Zoladex Subcutaneous Allergies: Ibuprofen Review of Systems: Constitutional - He has somewhat limited activity due to weakness in his legs. He has good appetite. He has not had fever. He does have some hot flashes/sweating, but he feels that it is tolerable. ECOG score is 1, ENMT - Has chronic sinus symptoms. No mouth sores. He has a little bit of sore throat. No difficulty swallowing, Hematologic/Lymphatic - He has noticed increased bruising, Respiratory - No shortness of breath. He has cough all the time. No pleuritic pain or hemoptysis, Cardiovascular - No angina pain. No palpitations, Gastrointestinal - No nausea or vomiting. No heartburn or acid reflux. No diarrhea or constipation. No blood in the stool or black stools, Genitourinary (M) - He is still self catheterizing. He sees his urologist again in November, Musculoskeletal - He has generalized joint pain, which is chronic and unchanged, Integumentary - His skin rash resolved with steroid therapy. He has had occasional recurrences, Neurologic - No headache. He was having dizziness without improved when he stopped Vesicare. He has some neuropathy in his legs and feet, Psychiatric - No anxiety or depression. No insomnia. Vital Signs: Performed on Oct 12, 2020 09:26 Height - 73.00 in Weight - 206.2 lbs (HIGH) BSA - 2.18 sq.m BMI - 27.20 Temperature - 97.0 F (LOW) Pulse - 53 /min (LOW) Respiration - 20 /min BP - 163/71 mm(hg) (HIGH) O2 Sat - 98 % Pain - 0 Physical Examination: Constitutional - He looks pretty good generally, Eyes - Sclerae nonicteric. Conjunctivae clear, ENMT - No lesions noted in the oral cavity, Hematologic/Lymphatic - No cervical, clavicular, or axillary adenopathy, Respiratory - Lungs are clear with good air movement bilaterally, Cardiovascular - Heart rhythm is regular. There is a II/ systolic murmur. There is no gallop or rub noted, Abdomen - Soft. Liver and spleen are not enlarged. There is no abdominal mass or ascites noted and there is no inguinal adenopathy, Extremities - No edema, Integumentary - There is currently no skin eruption, Neurologic - No focal neurologic deficits noted. Lab/Imaging: CBC shows hemoglobin 12.7 g, white blood cell count 5100, and platelet count 191,000. Comprehensive metabolic profile is unremarkable except for elevated nonfasting blood sugar. His PSA level remains stable at 0.006 ng/mL. Impression: 1. Patient with Jarek score 8 (4+4) adenocarcinoma of the prostate. By clinical evaluation his disease was stage IIC (T2c, N0, M0) at initial diagnosis in December 2019. 2. He began androgen deprivation therapy with Zoladex together with bicalutamide for 14 days on 02/22/2020. He began radiation to the prostate on 03/30/2020. He completed treatment on 05/25/2020 to a total dose of 7800 cGy. 3. He had pre-existing benign prostatic hypertrophy. He had presented with urinary retention in October 2019. 4. He has a positive family history of breast cancer, which raises the possibility of BRCA related cancer. His other medical illnesses include: 5. Hiatal hernia/GERD. 6. He has a history of cardiac arrhythmia (atrial flutter). 7. Type 2 diabetes, diet controlled. 8. Peripheral neuropathy. 9. Degenerative arthritis. He was given a second dose of Zoladex on 05/23/2020. His radiation was completed on 05/25/2020. His further clinical course was complicated by urinary retention, for which he has been self catheterizing. He has had a good response to the treatment by PSA level. In July 2020 his scheduled Zoladex injection was delayed due to a skin eruption which appeared to be a hypersensitivity reaction. A specific cause was not determined, but it did improve on steroid therapy. He was able to receive his Zoladex injection on 09/09/2020. He has having some hot flashes with the androgen deprivation therapy, though it has been tolerable. He also does have some muscle weakness in his legs which could be related to ADT or to steroid therapy. Plan: As his disease is high risk based on his Belt score, he is recommended to continue androgen deprivation therapy for 1.5 to 3 years, per NCCN guidelines, and I will have him continue Zoladex as long as he is tolerating it with acceptable toxicity. I will see him again in 2 months. Signed By: Omar Gonsalves M.D. <<Signature on File>>
== END 2020-10-12 06:14 | disposition home or self-care (01) ==
LOC: ONCMED 06:15
PROVIDERS: PCP Family Medicine; Visit Provider Internal Medicine Medical Oncology
DX: C61 Malignant neoplasm of prostate (principal); K44.9 Diaphragmatic hernia without obstruction or gangrene; K21.9 Gastro-esophageal reflux disease without esophagitis; E11.42 Type 2 diabetes mellitus with diabetic polyneuropathy; M19.90 Unspecified osteoarthritis, unspecified site; N40.0 Benign prostatic hyperplasia without lower urinary tract symptoms; R33.9 Retention of urine, unspecified; Z79.890 Hormone replacement therapy; Z79.899 Other long term (current) drug therapy
CPT/HCPCS: 99214

== ENCOUNTER 2020-12-06 10:39 | Outpatient (CLI) | payer MEDICARE, OTHER, SELFPAY ==
[2020-12-06 11:06] LABS: Basophils # 0.1 10^3/uL (0.0-0.1); Basophils % 1.4 %; Eosinophils # 0.2 10^3/uL (0.0-0.8); Eosinophils % 4.1 %; Hematocrit 39.7 % (42.0-52.0); Hemoglobin 12.9 g/dL (11.7-16.6); Lymphocytes % 20.2 %; Mean Corpuscular HGB Conc 32.5 g/dL (30.0-36.0); Mean Corpuscular Hemoglobin 32.3 pg (28.0-34.0); Mean Corpuscular Volume 99.3 fL (80-94); Mean Platelet Volume 9.2 fL (7.4-10.4); Monocytes # 0.7 10^3/uL (0.2-0.9); Monocytes % 13.6 %; Neutrophils # 2.96 10^3/uL (1.8-7.7); Neutrophils % 60.3 %; Nucleated Red Blood Cells % 0 %; Platelet Count 199 10^3/cmm (130-400); Red Cell Distribution Width 12.5 % (12.1-15.1); White Blood Count 4.9 10^3/uL (4.0-10.0)
[2020-12-06 11:33] LABS: Prostate Specific Antigen Scr 0.01 ng/mL (0-4)
[2020-12-06 11:44] LABS: Alanine Aminotransferase 19 U/L (0-41); Albumin Level 3.8 g/dL (3.5-5.2); Alkaline Phosphatase 85 IU/L (40-130); Anion Gap 11.5 (5-19); Aspartate Amino Transferase 18 U/L (0-40); Blood Urea Nitrogen 25 mg/dL (8-23); Calcium 9.3 mg/dL (8.5-10.5); Carbon Dioxide 28 mmol/L (22-29); Chloride 103 mmol/L (98-107); Globulin 2.8 g/dL (1.3-4.6); Glucose 214 mg/dL (65-115); Osmolality Calculated 297 mOsm/kg (285-295); Potassium 4.5 mmol/L (3.5-5.1); Sodium 138 mmol/L (136-145); Total Bilirubin 0.8 mg/dL (0.15-1.2); Total Protein 6.6 g/dL (6.6-8.7)
[2020-12-06 12:06] LABS: Testosterone Total 2.5 ng/dL (193-740)
[2020-12-06] MEDS: lidocaine 1% INJ 20 mL INJECTION (13:05)
[2020-12-06] MEDS: goserelin acetate 10.8 mg Implant IM (13:16)
--- NOTE | 2020-12-07 09:23 | ONC FU_ITS ---
Dr. Gonsalves Patient Follow-Up Note Patient: Omar Daniel Unit #: [id number]: 1935 Dicatated By: Omar Gonsalves M.D.Date of Visit:Dec 06, 2020 Onc Med Follow-up/Prog Note Chief Complaint: Prostate cancer. History of Present Illness: This is an 85 year-old man with Jarek score 8 (4+4) adenocarcinoma of the prostate, by clinical evaluation stage IIC (T2c, N0, M0). He had pre-existing benign prostatic hypertrophy, for which he had been on treatment with tamsulosin 0.4 mg daily. In October 2019 he had presented with urinary retention. His symptoms improved after increasing the tamsulosin dosage to 0.8 mg daily. In the meantime, he was seen by Dr. Marie on 11/16/2019 and at that time he was found to have a grossly abnormal prostate exam. His PSA level from 12/25/2019 was elevated at 10.54 ng/mL. On 01/15/2020 he underwent TRUSP/biopsy. Ultrasound showed a hypoechoic lesion on the right side of the prostate. Biopsies from 6 sites within the right prostatic lobe were all positive for prostatic adenocarcinoma, mostly [place] score 8 (4+4). The left prostatic lobe showed involvement in 3/6 sites, [place] score 7-8. He had staging with bone scan and CT abdomen/pelvis on 01/28/2020. The bone scan showed a focal area of intense uptake within the anterior left sixth rib, but with evidence of prior fracture noted on current rib x-ray and on prior CT scans. The abdomen/pelvis CT showed marked distention of the urinary bladder but with heterogeneous mildly enlarged prostate. A large portion of the stomach was noted to be intrathoracic, but similar to a prior study from December 2018. Stable hepatic hypodensities are felt to be consistent with cyst. There was no lymphadenopathy or other evidence of metastatic disease. He had radiation oncology consultation with Dr. Tavares Rodriguez on 02/18/2020. He had recommended androgen deprivation therapy to begin 1 month prior to radiation and extending for a minimum of 6 months. I had seen him initially on 02/22/2020. At that point he began androgen deprivation therapy with Zoladex 10.8 mg by subcutaneous injection together with bicalutamide 50 mg daily for 14 days. He began radiation to the prostate on 03/30/2020. He completed treatment on 05/25/2020 to a total dose of 7800 cGy. In the meantime, he received his second dose of Zoladex on 05/23/2020. His other medical illnesses include GERD, degenerative arthritis, and peripheral neuropathy. He has type 2 diabetes which is diet controlled. He has a history of atrial flutter. He had smoked a pipe for 40 years, but he quit in 1998. His family history is significant in that 2 sisters had breast cancer. INTERIM HISTORY: At his scheduled follow-up visit on 08/23/2020 he had developed a significant skin eruption. I felt the appearance was consistent with some type of hypersensitivity and I did opt to put his treatment on hold pending evaluation by his extractor puller. The skin eruption subsequently did improve on steroid therapy, and he then continued androgen deprivation therapy with Zoladex 10.8 mg on 09/09/2020. He is seen for a follow-up visit. He experienced some worsening of the skin eruption following the Zoladex injection in August, but it was still mild and manageable with topical therapy. It has since then showing further improvement, but it is not completely resolved, and he continues to complain of itching. He also still has some weakness in his legs. He has to push himself, but not as bad. His ECOG score is 1. He has good appetite. He has not had fever. He has some hot flashes and sweating, but not bad. He has chronic sinus drainage. He has just occasional cough. He sometimes has shortness of breath, mainly when he is bending over. He does not complain of chest pain. He has no GI complaints other than he has lost partial control of his anal sphincter, and he tends to leak a little bit of stool at times. He continues to self catheterize 4 times a day for urinary retention. He has fairly generalized joint pain, but that is unchanged. He does not complain of headache or dizziness. He has neuropathy in his legs and feet, but that has been going on for years. Medications: Aspirin Adult Low Strength 1 Tablet (of 81 mg) Tablet, chewable Oral daily, Atenolol 1 Tablet (of 25 mg) Oral daily, [employer] Cortisone Intense Healing 1 Applicator (of 1 %) Cream Topical b.i.d., Esomeprazole Magnesium 1 Capsule (of 40 mg) Capsule Delayed Release Oral daily, Glucosamine Chondroitin Triple 1 Tablet Oral daily, Multivitamin Men 50+ 1 Tablet Oral daily, Naproxen Sodium 1 Tablet (of 220 mg) Oral q 8 hours PRN, Tamsulosin HCl 2 Capsule (of 0.4 mg) Capsule Oral at bedtime, Vitamin B 12 1 (5000 mcg) Tablet Oral daily, Zoladex Subcutaneous Allergies: Ibuprofen Vital Signs: Performed on Dec 06, 2020 12:32 Height - 73.00 in Weight - 217 lbs (HIGH) BSA - 2.23 sq.m BMI - 28.63 Temperature - 97.2 F (LOW) Pulse - 63 /min Respiration - 18 /min BP - 132/75 mm(hg) O2 Sat - 98 % Pain - 0 Physical Examination: Constitutional - He looks pretty good generally, Eyes - Sclerae nonicteric. Conjunctivae clear, ENMT - No lesions noted in the oral cavity, Hematologic/Lymphatic - No cervical, clavicular, or axillary adenopathy, Respiratory - Lungs are clear with good air movement bilaterally, Cardiovascular - Heart rhythm is regular. There is a II/ systolic murmur. There is no gallop or rub noted, Abdomen - Soft. Liver and spleen are not enlarged. There is no abdominal mass or ascites noted and there is no inguinal adenopathy, Extremities - No edema, Integumentary - He has just a very scattered, faint skin eruption, Neurologic - No focal neurologic deficits noted. Lab/Imaging: Test performed on Dec 06, 2020 10:59 Sodium 138 mmol/L Testosterone, Total 2.5 ng/dL Potassium 4.5 mmol/L Chloride 103 mmol/L CO2 28 mmol/L Anion Gap 11.5 BUN 25 mg/dL Creatinine 0.9 mg/dL Cr Clearance (Est) 83.55 mL/min Glucose 214 mg/dL Osmolality - Calculated 297 mOsm/kg Calcium 9.3 mg/dL Protein, Total 6.6 g/dL Albumin 3.8 g/dL Globulin 2.8 g/dL Bilirubin, Total 0.8 mg/dL ALT (SGPT) 19 U/L AST (SGOT) 18 U/L Alkaline Phosphatase 85 IU/L WBC 4.9 10 3/uL RBC 4.00 10 6/uL HGB 12.9 g/dL HCT 39.7 % MCV 99.3 fL MCH 32.3 pg MCHC 32.5 g/dL RDW 12.5 % Platelet Count 199 10 3/cmm MPV 9.2 fL Neutrophils 2.96 10 3/uL Lymphocytes 1.0 10 3/uL Monocytes 0.7 10 3/uL Eosinophils 0.2 10 3/uL Basophils 0.1 10 3/uL Neutrophil % 60.3 % Lymphocyte % 20.2 % Monocyte % 13.6 % Eosinophil % 4.1 % Basophils % 1.4 % NRBC % 0 % PSA 0.01 ng/mL Problem List: 1. Jarek score 8 (4+4) adenocarcinoma of the prostate. By clinical evaluation his disease was stage IIC (T2c, N0, M0) at initial diagnosis in December 2019. 2. He began androgen deprivation therapy with Zoladex together with bicalutamide for 14 days on 02/22/2020. He began radiation to the prostate on 03/30/2020. He completed treatment on 05/25/2020 to a total dose of 7800 cGy. 3. He had pre-existing benign prostatic hypertrophy. He had presented with urinary retention in October 2019. 4. He has a positive family history of breast cancer, but he was confirmed to be BRCA negative. 5. Hiatal hernia/GERD. 6. He has a history of cardiac arrhythmia (atrial flutter). 7. Type 2 diabetes, diet controlled. 8. Peripheral neuropathy. 9. Degenerative arthritis. Problems Addressed with this Encounter and Plan: 1. Jarek score 8 (4+4) adenocarcinoma of the prostate. By clinical evaluation his disease was stage IIC (T2c, N0, M0) at initial diagnosis in December 2019. He began androgen deprivation therapy with Zoladex together with bicalutamide for 14 days on 02/22/2020. He began radiation to the prostate on 03/30/2020. He completed treatment on 05/25/2020 to a total dose of 7800 cGy. Due to high risk disease, he was recommended to continue androgen deprivation therapy for 1.5 to 3 years, per NCCN guidelines. He received a second injection of Zoladex on 05/23/2020. His third scheduled injection was delayed due to development of a hypersensitivity type skin eruption. The exact cause for the skin eruption was not determined, but it did improve with steroid therapy. He then continued with the third injection of Zoladex on 09/09/2020. He has otherwise tolerated the treatment with acceptable toxicity, and his PSA level remains adequately suppressed. He will continue androgen deprivation therapy with Zoladex 10.8 mg. He will be scheduled to return in 3 months. 2. He developed a hypersensitivity type skin eruption following the second injection of Zoladex. A specific cause has not been determined, but I suspect that it may be related to the Zoladex. Thus far he has been able to manage it adequately with topical steroid therapy. Signed By: Omar Gonsalves M.D. <<Signature on File>>
== END 2020-12-06 10:40 | disposition home or self-care (01) ==
PROVIDERS: PCP Family Medicine; Visit Provider Internal Medicine Medical Oncology
DX: C61 Malignant neoplasm of prostate (principal); R21 Rash and other nonspecific skin eruption; Z79.818 Long term (current) use of other agents affecting estrogen receptors and estrogen levels; Z92.3 Personal history of irradiation; Z79.52 Long term (current) use of systemic steroids
CPT/HCPCS: 36415; 80053; 84403; 85025; 96372; 96402; 99214; G0103; J9202

== ENCOUNTER 2021-03-07 10:58 | Outpatient (CLI) | payer MEDICARE, OTHER, SELFPAY ==
[2021-03-07 11:45] LABS: Basophils # 0.1 10^3/uL (0.0-0.1); Basophils % 1.4 %; Eosinophils # 0.2 10^3/uL (0.0-0.8); Eosinophils % 4.8 %; Hematocrit 39.4 % (42.0-52.0); Hemoglobin 12.9 g/dL (11.7-16.6); Lymphocytes % 19.5 %; Mean Corpuscular HGB Conc 32.7 g/dL (30.0-36.0); Mean Corpuscular Hemoglobin 31.8 pg (28.0-34.0); Mean Platelet Volume 9.9 fL (7.4-10.4); Monocytes # 0.7 10^3/uL (0.2-0.9); Monocytes % 14.3 %; Neutrophils # 2.98 10^3/uL (1.8-7.7); Neutrophils % 59.8 %; Nucleated Red Blood Cells % 0 %; Platelet Count 210 10^3/cmm (130-400); Red Blood Count 4.06 10^6/uL (4.1-5.3); Red Cell Distribution Width 12.5 % (12.1-15.1)
[2021-03-07 12:24] LABS: Prostate Specific Antigen 0.113 ng/mL (0-4); Testosterone Total 2.5 ng/dL (193-740)
[2021-03-07 12:35] LABS: Alanine Aminotransferase 17 U/L (0-41); Alkaline Phosphatase 85 IU/L (40-130); Anion Gap 13.2 (5-19); Aspartate Amino Transferase 18 U/L (0-40); Blood Urea Nitrogen 22 mg/dL (8-23); Calcium 8.9 mg/dL (8.5-10.5); Carbon Dioxide 27 mmol/L (22-29); Chloride 102 mmol/L (98-107); Globulin 2.6 g/dL (1.3-4.6); Glucose 187 mg/dL (65-115); Osmolality Calculated 294 mOsm/kg (285-295); Potassium 4.2 mmol/L (3.5-5.1); Sodium 138 mmol/L (136-145); Total Bilirubin 0.8 mg/dL (0.15-1.2); Total Protein 6.6 g/dL (6.6-8.7)
[2021-03-07] MEDS: lidocaine 1% INJ 20 mL INJECTION (13:10)
[2021-03-07] MEDS: goserelin acetate 10.8 mg Implant SUBCUT (13:26)
--- NOTE | 2021-03-11 11:44 | ONC FU_ITS ---
Dr. Gonsalves Patient Follow-Up Note Patient: Omar Daniel Unit #: [id number]: 1935 Dicatated By: Omar Gonsalves M.D.Date of Visit:March 07, 2021 Onc Med Follow-up/Prog Note Chief Complaint: Prostate cancer. History of Present Illness: This is an 85 year-old man with Jarek score 8 (4+4) adenocarcinoma of the prostate, by clinical evaluation stage IIC (T2c, N0, M0). He had pre-existing benign prostatic hypertrophy, for which he had been on treatment with tamsulosin 0.4 mg daily. In October 2019 he had presented with urinary retention. His symptoms improved after increasing the tamsulosin dosage to 0.8 mg daily. In the meantime, he was seen by Dr. Marie on 11/16/2019 and at that time he was found to have a grossly abnormal prostate exam. His PSA level from 12/25/2019 was elevated at 10.54 ng/mL. On 01/15/2020 he underwent TRUSP/biopsy. Ultrasound showed a hypoechoic lesion on the right side of the prostate. Biopsies from 6 sites within the right prostatic lobe were all positive for prostatic adenocarcinoma, mostly [place] score 8 (4+4). The left prostatic lobe showed involvement in 3/6 sites, [place] score 7-8. He had staging with bone scan and CT abdomen/pelvis on 01/28/2020. The bone scan showed a focal area of intense uptake within the anterior left sixth rib, but with evidence of prior fracture noted on current rib x-ray and on prior CT scans. The abdomen/pelvis CT showed marked distention of the urinary bladder but with heterogeneous mildly enlarged prostate. A large portion of the stomach was noted to be intrathoracic, but similar to a prior study from December 2018. Stable hepatic hypodensities are felt to be consistent with cyst. There was no lymphadenopathy or other evidence of metastatic disease. He had radiation oncology consultation with Dr. Tavares Rodriguez on 02/18/2020. He had recommended androgen deprivation therapy to begin 1 month prior to radiation and extending for a minimum of 6 months. I had seen him initially on 02/22/2020. At that point he began androgen deprivation therapy with Zoladex 10.8 mg by subcutaneous injection together with bicalutamide 50 mg daily for 14 days. He began radiation to the prostate on 03/30/2020. He completed treatment on 05/25/2020 to a total dose of 7800 cGy. In the meantime, he received his second dose of Zoladex on 05/23/2020. His other medical illnesses include GERD, degenerative arthritis, and peripheral neuropathy. He has type 2 diabetes which is diet controlled. He has a history of atrial flutter. He had smoked a pipe for 40 years, but he quit in 1998. His family history is significant in that 2 sisters had breast cancer. INTERIM HISTORY: At his scheduled follow-up visit on 08/23/2020 he had developed a significant skin eruption. I felt the appearance was consistent with some type of hypersensitivity and I did opt to put his treatment on hold pending evaluation by his nip wrapper. The skin eruption subsequently did improve on steroid therapy, and he then continued androgen deprivation therapy with Zoladex injections on 09/09/2020 and on 12/06/2020. He is seen for a follow-up visit. He has been feeling more tired, particularly in the lower extremities. He is still walking at least a mile every day. ECOG score is 1. He has good appetite. He has not had fever. He does have some hot flashes. His rash got worse again after his last Zoladex injection, but it is still tolerable. He has some chronic sinus drainage. He has a little bit of cough. He is sometimes short of breath with activity. He does not complain of chest pain. His bowel function tends to cycle , but it is the same as it was prior to radiation. He has no other GI complaints. He continues to require self-catheterization for urinary retention. He has had a sore back for the past 3 to 4 weeks and he also has had some pain in his lower left leg. He has numbness/tingling in his feet. Medications: Aspirin Adult Low Strength 1 Tablet (of 81 mg) Tablet, chewable Oral daily, Atenolol 1 Tablet (of 25 mg) Oral daily, [employer] Cortisone Intense Healing 1 Applicator (of 1 %) Cream Topical b.i.d., Esomeprazole Magnesium 1 Capsule (of 40 mg) Capsule Delayed Release Oral daily, Glucosamine Chondroitin Triple 1 Tablet Oral daily, Multivitamin Men 50+ 1 Tablet Oral daily, Naproxen Sodium 1 Tablet (of 220 mg) Oral q 8 hours PRN, Tamsulosin HCl 2 Capsule (of 0.4 mg) Capsule Oral at bedtime, Vitamin B 12 1 (5000 mcg) Tablet Oral daily, Zoladex Subcutaneous Allergies: Ibuprofen Vital Signs: Performed on March 07, 2021 15:20 Height - 73.00 in Weight - 210.6 lbs (LOW) BSA - 2.20 sq.m BMI - 27.79 Temperature - 96.7 F (LOW) Pulse - 64 /min Respiration - 18 /min BP - 152/75 mm(hg) (HIGH) O2 Sat - 92 % (LOW) Pain - 0 Fatigue - 0 Physical Examination: Constitutional - He looks pretty good generally, Eyes - Sclerae nonicteric. Conjunctivae clear, ENMT - No lesions noted in the oral cavity, Hematologic/Lymphatic - No cervical, clavicular, or axillary adenopathy, Respiratory - Lungs are clear with good air movement bilaterally, Cardiovascular - Heart rhythm is regular with occasional premature beats. There is a II/ systolic murmur. There is no gallop or rub noted, Abdomen - Soft. Liver and spleen are not enlarged. There is no abdominal mass or ascites noted and there is no inguinal adenopathy, Extremities - Slight edema. Both feet are cool to touch, but he does have palpable posterior tibial pulses bilaterally, Integumentary - He has only minimal residual skin eruption, Neurologic - No focal neurologic deficits noted. Lab/Imaging: Test performed on March 07, 2021 11:10 Sodium 138 mmol/L Testosterone, Total 2.5 ng/dL Potassium 4.2 mmol/L Chloride 102 mmol/L CO2 27 mmol/L Anion Gap 13.2 BUN 22 mg/dL Creatinine 0.8 mg/dL Cr Clearance (Est) 91.22 mL/min Glucose 187 mg/dL Osmolality - Calculated 294 mOsm/kg Calcium 8.9 mg/dL Protein, Total 6.6 g/dL Albumin 4.0 g/dL Globulin 2.6 g/dL Bilirubin, Total 0.8 mg/dL ALT (SGPT) 17 U/L AST (SGOT) 18 U/L Alkaline Phosphatase 85 IU/L WBC 5.0 10 3/uL RBC 4.06 10 6/uL HGB 12.9 g/dL HCT 39.4 % MCV 97.0 fL MCH 31.8 pg MCHC 32.7 g/dL RDW 12.5 % Platelet Count 210 10 3/cmm MPV 9.9 fL Neutrophils 2.98 10 3/uL Lymphocytes 1.0 10 3/uL Monocytes 0.7 10 3/uL Eosinophils 0.2 10 3/uL Basophils 0.1 10 3/uL Neutrophil % 59.8 % Lymphocyte % 19.5 % Monocyte % 14.3 % Eosinophil % 4.8 % Basophils % 1.4 % NRBC % 0 % PSA 0.113 ng/mL Problem List: 1. [place] score 8 (4+4) adenocarcinoma of the prostate. By clinical evaluation his disease was stage IIC (T2c, N0, M0) at initial diagnosis in December 2019. 2. He began androgen deprivation therapy with Zoladex together with bicalutamide for 14 days on 02/22/2020. He began radiation to the prostate on 03/30/2020. He completed treatment on 05/25/2020 to a total dose of 7800 cGy. 3. He had pre-existing benign prostatic hypertrophy. He had presented with urinary retention in October 2019. 4. He has a positive family history of breast cancer, but he was confirmed to be BRCA negative. 5. Hiatal hernia/GERD. 6. He has a history of cardiac arrhythmia (atrial flutter). 7. Type 2 diabetes, diet controlled. 8. Peripheral neuropathy. 9. Degenerative arthritis. Problems Addressed with this Encounter and Plan: 1. Patient with [place] score 8 (4+4) adenocarcinoma of the prostate. By clinical evaluation his disease was stage IIC (T2c, N0, M0) at initial diagnosis in December 2019. He began androgen deprivation therapy with Zoladex together with bicalutamide for 14 days on 02/22/2020. He began radiation to the prostate on 03/30/2020. He completed treatment on 05/25/2020 to a total dose of 7800 cGy. Due to high risk disease, he was recommended to continue androgen deprivation therapy for 1.5 to 3 years, per NCCN guidelines. He received a second injection of Zoladex on 05/23/2020. His third scheduled injection was delayed due to development of a hypersensitivity type skin eruption. The exact cause for the skin eruption was not determined, but it did improve with steroid therapy. He then continued with the third injection of Zoladex on 09/09/2020. He has otherwise tolerated the treatment with acceptable toxicity. During followup his PSA level has remained adequately suppressed. During follow-up he has had ongoing problems with the skin eruption, though it is still tolerable. He also now is having more significant fatigue. He is wondering whether he should continue further treatment. I recommended that he take a least 1 injection of Zoladex and possibly 1 additional injection depending on how he tolerates it, as it would be preferable that he complete at least 1-1/2-year of treatment. He is agreeable, and he will be given the 10.8 mg Zoladex injection today. He returns in 3 months. 2. He developed a hypersensitivity type skin eruption following the second injection of Zoladex, and it is presumed to be related to the Zoladex. He has been managing it adequately with topical steroid therapy. Signed By: Omar Gonsalves M.D. <<Signature on File>>
== END 2021-03-07 10:59 | disposition home or self-care (01) ==
LOC: ONCMED 11:01
PROVIDERS: PCP Family Medicine; Visit Provider Internal Medicine Medical Oncology
DX: Z51.11 Encounter for antineoplastic chemotherapy (principal); C61 Malignant neoplasm of prostate; N40.1 Benign prostatic hyperplasia with lower urinary tract symptoms; R33.9 Retention of urine, unspecified; Z80.3 Family history of malignant neoplasm of breast; K44.9 Diaphragmatic hernia without obstruction or gangrene; K21.9 Gastro-esophageal reflux disease without esophagitis; I49.9 Cardiac arrhythmia, unspecified; E11.42 Type 2 diabetes mellitus with diabetic polyneuropathy; M19.90 Unspecified osteoarthritis, unspecified site; Z79.818 Long term (current) use of other agents affecting estrogen receptors and estrogen levels
CPT/HCPCS: 36415; 80053; 84153; 84403; 85025; 96402; 99214; J9202

== ENCOUNTER 2021-06-08 09:33 | Outpatient (CLI) | payer MEDICARE, OTHER, SELFPAY ==
[2021-06-08 09:54] LABS: Basophils # 0.1 10^3/uL (0.0-0.1); Basophils % 1.2 %; Eosinophils # 0.3 10^3/uL (0.0-0.8); Eosinophils % 4.7 %; Hematocrit 40.3 % (42.0-52.0); Hemoglobin 13.2 g/dL (11.7-16.6); Lymphocytes # 1.1 10^3/uL (0.8-4.8); Lymphocytes % 18.5 %; Mean Corpuscular HGB Conc 32.8 g/dL (30.0-36.0); Mean Corpuscular Hemoglobin 31.5 pg (28.0-34.0); Mean Corpuscular Volume 96.2 fL (80-94); Mean Platelet Volume 9.9 fL (7.4-10.4); Monocytes # 0.8 10^3/uL (0.2-0.9); Monocytes % 13.3 %; Neutrophils # 3.57 10^3/uL (1.8-7.7); Neutrophils % 61.8 %; Nucleated Red Blood Cells % 0 %; Platelet Count 190 10^3/cmm (130-400); Red Blood Count 4.19 10^6/uL (4.1-5.3); Red Cell Distribution Width 12.5 % (12.1-15.1); White Blood Count 5.8 10^3/uL (4.0-10.0)
[2021-06-08 10:32] LABS: Prostate Specific Antigen < 0.006 ng/mL (0-4); Testosterone Total < 2.5 ng/dL (193-740)
[2021-06-08 10:39] LABS: Alanine Aminotransferase 17 U/L (0-41); Albumin Level 3.8 g/dL (3.5-5.2); Alkaline Phosphatase 88 IU/L (40-130); Anion Gap 13.7 (5-19); Aspartate Amino Transferase 17 U/L (0-40); Blood Urea Nitrogen 20 mg/dL (8-23); Calcium 8.8 mg/dL (8.5-10.5); Carbon Dioxide 26 mmol/L (22-29); Chloride 106 mmol/L (98-107); Globulin 2.6 g/dL (1.3-4.6); Glucose 162 mg/dL (65-115); Osmolality Calculated 298 mOsm/kg (285-295); Potassium 4.7 mmol/L (3.5-5.1); Sodium 141 mmol/L (136-145); Total Protein 6.4 g/dL (6.6-8.7)
[2021-06-08] MEDS: lidocaine 1% INJ 20 mL INJECTION (10:43)
[2021-06-08] MEDS: goserelin acetate 10.8 mg Implant SUBCUT (10:53)
== END 2021-06-08 09:34 | disposition home or self-care (01) ==
LOC: ONCMED 09:37
PROVIDERS: PCP Family Medicine; Visit Provider Internal Medicine Medical Oncology
DX: Z51.11 Encounter for antineoplastic chemotherapy (principal); C61 Malignant neoplasm of prostate; N40.0 Benign prostatic hyperplasia without lower urinary tract symptoms; R33.9 Retention of urine, unspecified; Z79.899 Other long term (current) drug therapy
CPT/HCPCS: 36415; 80053; 84153; 84403; 85025; 96372; 96402; J9202

== ENCOUNTER 2021-06-13 05:58 | Outpatient (CLI) | payer MEDICARE, OTHER, SELFPAY ==
--- NOTE | 2021-06-13 09:34 | ONC FU_ITS ---
Dr. Gonsalves Patient Follow-Up Note Patient: Omar Daniel Unit #: [id number]: 1935 Dicatated By: Omar Gonsalves M.D.Date of Visit:Jun 13, 2021 Onc Med Follow-up/Prog Note Chief Complaint: Prostate cancer. History of Present Illness: This is an 86 year-old man with Jarek score 8 (4+4) adenocarcinoma of the prostate, by clinical evaluation stage IIC (T2c, N0, M0). He had pre-existing benign prostatic hypertrophy, for which he had been on treatment with tamsulosin 0.4 mg daily. In October 2019 he had presented with urinary retention. His symptoms improved after increasing the tamsulosin dosage to 0.8 mg daily. In the meantime, he was seen by Dr. Marie on 11/16/2019 and at that time he was found to have a grossly abnormal prostate exam. His PSA level from 12/25/2019 was elevated at 10.54 ng/mL. On 01/15/2020 he underwent TRUSP/biopsy. Ultrasound showed a hypoechoic lesion on the right side of the prostate. Biopsies from 6 sites within the right prostatic lobe were all positive for prostatic adenocarcinoma, mostly [place] score 8 (4+4). The left prostatic lobe showed involvement in 3/6 sites, [place] score 7-8. He had staging with bone scan and CT abdomen/pelvis on 01/28/2020. The bone scan showed a focal area of intense uptake within the anterior left sixth rib, but with evidence of prior fracture noted on current rib x-ray and on prior CT scans. The abdomen/pelvis CT showed marked distention of the urinary bladder but with heterogeneous mildly enlarged prostate. A large portion of the stomach was noted to be intrathoracic, but similar to a prior study from December 2018. Stable hepatic hypodensities are felt to be consistent with cyst. There was no lymphadenopathy or other evidence of metastatic disease. He had radiation oncology consultation with Dr. Tavares Rodriguez on 02/18/2020. He had recommended androgen deprivation therapy to begin 1 month prior to radiation and extending for a minimum of 6 months. I had seen him initially on 02/22/2020. At that point he began androgen deprivation therapy with Zoladex 10.8 mg by subcutaneous injection together with bicalutamide 50 mg daily for 14 days. He began radiation to the prostate on 03/30/2020. He completed treatment on 05/25/2020 to a total dose of 7800 cGy. In the meantime, he received his second dose of Zoladex on 05/23/2020. His other medical illnesses include GERD, degenerative arthritis, and peripheral neuropathy. He has type 2 diabetes which is diet controlled. He has a history of atrial flutter. He had smoked a pipe for 40 years, but he quit in 1998. His family history is significant in that 2 sisters had breast cancer. INTERIM HISTORY: At his scheduled follow-up visit on 08/23/2020 he had developed a significant skin eruption. I felt the appearance was consistent with some type of hypersensitivity and I did opt to put his treatment on hold pending evaluation by his outsole skiver. The skin eruption subsequently did improve on steroid therapy, and he then continued androgen deprivation therapy with Zoladex injections every 3 months. During subsequent follow-up he continued to have some skin eruption, but he was able to manage it adequately with topical steroid as needed. He is seen for a follow-up visit. He has been feeling pretty good generally. He does have some fatigue, but he is walking every day and doing light work. ECOG score is 1. He has good appetite. He has not had fever. He has hot flashes and sweating both during the daytime and at night. He has chronic sinusitis symptoms. He also complains that his throat tends to be dry. He always has cough. He is sometimes short of breath with activity. He does not complain of chest pain. He currently has no GI complaints. His acid reflux symptoms are adequately managed with Nexium, and his bowel function remains adequate. He occasionally has traces of red blood in the stool. He continues to self catheterize. He has generalized arthritis pain. It is not getting any worse. He does not complain of headache or dizziness. He has had neuropathy associated with his diabetes, also unchanged. Medications: Aspirin Adult Low Strength 1 Tablet (of 81 mg) Tablet, chewable Oral daily, Atenolol 1 Tablet (of 25 mg) Oral daily, [employer] Cortisone Intense Healing 1 Applicator (of 1 %) Cream Topical b.i.d., Esomeprazole Magnesium 1 Capsule (of 40 mg) Capsule Delayed Release Oral daily, Glucosamine Chondroitin Triple 1 Tablet Oral daily, Multivitamin Men 50+ 1 Tablet Oral daily, Naproxen Sodium 1 Tablet (of 220 mg) Oral q 8 hours PRN, Tamsulosin HCl 2 Capsule (of 0.4 mg) Capsule Oral at bedtime, Vitamin B 12 1 (5000 mcg) Tablet Oral daily, Zoladex Subcutaneous Allergies: Ibuprofen Vital Signs: Performed on Jun 13, 2021 08:58 Height - 73.00 in Weight - 208 lbs (LOW) BSA - 2.19 sq.m BMI - 27.44 Temperature - 96.8 F (LOW) Pulse - 56 /min (LOW) Respiration - 18 /min BP - 159/76 mm(hg) (HIGH) O2 Sat - 98 % Pain - 0 Fatigue - 0 Physical Examination: Constitutional - He looks pretty good generally, Eyes - Sclerae nonicteric. Conjunctivae clear, ENMT - No lesions noted in the oral cavity, Hematologic/Lymphatic - No cervical, clavicular, or axillary adenopathy, Respiratory - Lungs are clear with good air movement bilaterally, Cardiovascular - Heart rhythm is regular. There is a II/ systolic murmur. There is no gallop or rub noted, Abdomen - Soft. Liver and spleen are not enlarged. There is no abdominal mass or ascites noted and there is no inguinal adenopathy, Extremities - There is mild swelling of the left leg. There are scattered purpuric lesions on the arms, Integumentary - There is currently no skin eruption, Neurologic - No focal neurologic deficits noted. Lab/Imaging: CBC shows hemoglobin 13.2 g, white blood cell count 5800, and platelet count 190,000. Comprehensive metabolic profile is unremarkable. The PSA level is reported at < 0.006 ng/mL with testosterone level < 2.5 ng/dL. Problem List: 1. Jarek score 8 (4+4) adenocarcinoma of the prostate. By clinical evaluation his disease was stage IIC (T2c, N0, M0) at initial diagnosis in December 2019. 2. He began androgen deprivation therapy with Zoladex together with bicalutamide for 14 days on 02/22/2020. He began radiation to the prostate on 03/30/2020. He completed treatment on 05/25/2020 to a total dose of 7800 cGy. 3. He had pre-existing benign prostatic hypertrophy. He had presented with urinary retention in October 2019. 4. He has a positive family history of breast cancer, but he was confirmed to be BRCA negative. 5. Hiatal hernia/GERD. 6. He has a history of cardiac arrhythmia (atrial flutter). 7. Type 2 diabetes, diet controlled. 8. Peripheral neuropathy. 9. Degenerative arthritis. Problems Addressed with this Encounter and Plan: Patient with [place] score 8 (4+4) adenocarcinoma of the prostate. By clinical evaluation his disease was stage IIC (T2c, N0, M0) at initial diagnosis in December 2019. He began androgen deprivation therapy with Zoladex together with bicalutamide for 14 days on 02/22/2020. He began radiation to the prostate on 03/30/2020. He completed treatment on 05/25/2020 to a total dose of 7800 cGy. Due to high risk disease, he was recommended to continue androgen deprivation therapy for 1.5 to 3 years, per NCCN guidelines. He received a second injection of Zoladex on 05/23/2020. His third scheduled injection was delayed due to development of a hypersensitivity type skin eruption. The exact cause for the skin eruption was not determined, but it did improve with steroid therapy. He then continued with the third injection of Zoladex on 09/09/2020. He has otherwise tolerated the treatment with acceptable toxicity. During followup his PSA level has remained adequately suppressed. During follow-up he has had ongoing problems with the skin eruption, though it has been adequately managed with topical steroid. He has hot flashes/sweating with the androgen deprivation, as expected. He also has some fatigue. Overall, the side effects have been tolerable. His PSA level remains adequately suppressed. He was in for a scheduled Zoladex injection last week, and return for the same in 3 months. I will see him again in 6 months. At that point he will have had a year and a half of androgen deprivation beyond completion of radiation. Signed By: Omar Gonsalves M.D. <<Signature on File>>
== END 2021-06-13 05:59 | disposition home or self-care (01) ==
PROVIDERS: PCP Family Medicine; Visit Provider Internal Medicine Medical Oncology
DX: C61 Malignant neoplasm of prostate (principal); N40.0 Benign prostatic hyperplasia without lower urinary tract symptoms; R33.9 Retention of urine, unspecified; Z80.3 Family history of malignant neoplasm of breast; K21.9 Gastro-esophageal reflux disease without esophagitis; K44.9 Diaphragmatic hernia without obstruction or gangrene; I49.9 Cardiac arrhythmia, unspecified; E11.42 Type 2 diabetes mellitus with diabetic polyneuropathy; M19.90 Unspecified osteoarthritis, unspecified site; Z79.899 Other long term (current) drug therapy; Z92.3 Personal history of irradiation
CPT/HCPCS: 81003; 87077; 87086; 87184; 99214

== ENCOUNTER 2021-08-31 12:45 | Outpatient (CLI) | payer MEDICARE, OTHER, SELFPAY ==
[2021-08-31] MEDS: lidocaine 1% INJ 20 mL INJECTION (13:08)
[2021-08-31] MEDS: goserelin acetate 10.8 mg Implant SUBCUT (13:22)
[2021-08-31 14:26] LABS: Prostate Specific Antigen < 0.006 ng/mL (0-4)
== END 2021-08-31 12:46 | disposition home or self-care (01) ==
PROVIDERS: PCP Family Medicine; Visit Provider Internal Medicine Medical Oncology
DX: C61 Malignant neoplasm of prostate (principal); Z79.818 Long term (current) use of other agents affecting estrogen receptors and estrogen levels
CPT/HCPCS: 36415; 84153; 96372; 96402; J9202

== ENCOUNTER 2021-11-27 13:47 | Outpatient (CLI) | payer MEDICARE, OTHER, SELFPAY ==
[2021-11-27 14:40] LABS: Basophils # 0.1 10^3/uL (0.0-0.1); Basophils % 1.3 %; Eosinophils # 0.2 10^3/uL (0.0-0.8); Eosinophils % 3.7 %; Hematocrit 38.5 % (42.0-52.0); Hemoglobin 12.6 g/dL (11.7-16.6); Lymphocytes # 1.1 10^3/uL (0.8-4.8); Lymphocytes % 19.1 %; Mean Corpuscular HGB Conc 32.7 g/dL (30.0-36.0); Mean Corpuscular Hemoglobin 31.7 pg (28.0-34.0); Mean Corpuscular Volume 96.7 fl (80-94); Monocytes # 0.7 10^3/uL (0.2-0.9); Monocytes % 12.4 %; Neutrophils # 3.78 10^3/uL (1.8-7.7); Neutrophils % 63.3 %; Nucleated Red Blood Cells % 0 %; Platelet Count 192 10^3/cmm (130-400); Red Blood Count 3.98 10^6/uL (4.1-5.3); Red Cell Distribution Width 13.1 % (12.1-15.1)
[2021-11-27 15:18] LABS: Alanine Aminotransferase 15 U/L (0-41); Albumin Level 3.9 g/dL (3.5-5.2); Alkaline Phosphatase 90 IU/L (40-130); Anion Gap 14.4 (5-19); Aspartate Amino Transferase 17 U/L (0-40); Blood Urea Nitrogen 18 mg/dL (8-23); Calcium 8.7 mg/dL (8.5-10.5); Carbon Dioxide 27 mmol/L (22-29); Chloride 103 mmol/L (98-107); Globulin 2.6 g/dL (1.3-4.6); Glucose 202 mg/dL (65-115); Osmolality Calculated 298 mOsm/kg (285-295); Potassium 4.4 mmol/L (3.5-5.1); Sodium 140 mmol/L (136-145); Total Bilirubin 1.1 mg/dL (0.15-1.2); Total Protein 6.5 g/dL (6.6-8.7)
[2021-11-27 15:20] LABS: Prostate Specific Antigen < 0.014 ng/mL (0-4)
[2021-11-27 15:21] LABS: Testosterone Total < 2.5 ng/dL (193-740)
== END 2021-11-27 13:48 | disposition home or self-care (01) ==
LOC: ONCMED 13:59
PROVIDERS: PCP Family Medicine; Visit Provider Internal Medicine Medical Oncology
DX: C61 Malignant neoplasm of prostate (principal); K21.9 Gastro-esophageal reflux disease without esophagitis; E11.42 Type 2 diabetes mellitus with diabetic polyneuropathy; Z79.899 Other long term (current) drug therapy; Z87.891 Personal history of nicotine dependence; Z85.3 Personal history of malignant neoplasm of breast
CPT/HCPCS: 36415; 80053; 84153; 84403; 85025

== ENCOUNTER 2021-11-29 06:36 | Outpatient (CLI) | payer MEDICARE, OTHER, SELFPAY ==
[2021-11-29] MEDS: lidocaine 1% INJ 20 mL INJECTION (09:58)
[2021-11-29] MEDS: goserelin acetate 10.8 mg Implant SUBCUT (10:10)
--- NOTE | 2021-11-29 10:43 | ONC FU_ITS ---
Dr. Gonsalves Patient Follow-Up Note Patient: Omar Daniel Unit #: [id number]: 1935 Dicatated By: Omar Gonsalves M.D.Date of Visit:Nov 29, 2021 Onc Med Follow-up/Prog Note Chief Complaint: Prostate cancer. History of Present Illness: This is an 86 year-old man with Jarek score 8 (4+4) adenocarcinoma of the prostate, by clinical evaluation stage IIC (T2c, N0, M0). He had pre-existing benign prostatic hypertrophy, for which he had been on treatment with tamsulosin 0.4 mg daily. In October 2019 he had presented with urinary retention. His symptoms improved after increasing the tamsulosin dosage to 0.8 mg daily. In the meantime, he was seen by Dr. Marie on 11/16/2019 and at that time he was found to have a grossly abnormal prostate exam. His PSA level from 12/25/2019 was elevated at 10.54 ng/mL. On 01/15/2020 he underwent TRUSP/biopsy. Ultrasound showed a hypoechoic lesion on the right side of the prostate. Biopsies from 6 sites within the right prostatic lobe were all positive for prostatic adenocarcinoma, mostly Emerson score 8 (4+4). The left prostatic lobe showed involvement in 3/6 sites, Emerson score 7-8. He had staging with bone scan and CT abdomen/pelvis on 01/28/2020. The bone scan showed a focal area of intense uptake within the anterior left sixth rib, but with evidence of prior fracture noted on current rib x-ray and on prior CT scans. The abdomen/pelvis CT showed marked distention of the urinary bladder but with heterogeneous mildly enlarged prostate. A large portion of the stomach was noted to be intrathoracic, but similar to a prior study from December 2018. Stable hepatic hypodensities are felt to be consistent with cyst. There was no lymphadenopathy or other evidence of metastatic disease. He had radiation oncology consultation with Dr. Tavares Rodriguez on 02/18/2020. He had recommended androgen deprivation therapy to begin 1 month prior to radiation and extending for a minimum of 6 months. I had seen him initially on 02/22/2020. At that point he began androgen deprivation therapy with Zoladex 10.8 mg by subcutaneous injection together with bicalutamide 50 mg daily for 14 days. He began radiation to the prostate on 03/30/2020. He completed treatment on 05/25/2020 to a total dose of 7800 cGy. In the meantime, he received his second dose of Zoladex on 05/23/2020. His other medical illnesses include GERD, degenerative arthritis, and peripheral neuropathy. He has type 2 diabetes which is diet controlled. He has a history of atrial flutter. He had smoked a pipe for 40 years, but he quit in 1998. His family history is significant in that 2 sisters had breast cancer. INTERIM HISTORY: At his scheduled follow-up visit on 08/23/2020 he had developed a significant skin eruption. I felt the appearance was consistent with some type of hypersensitivity and I did opt to put his treatment on hold pending evaluation by his [employer] crm developer. The skin eruption subsequently did improve on steroid therapy, and he then continued androgen deprivation therapy with Zoladex injections every 3 months. During subsequent follow-up he continued to have some skin eruption, but he was able to manage it adequately with topical steroid as needed. As of his follow-up visit in August 2021 his PSA level remained adequately suppressed at <0.006 ng/mL. He is seen for a follow-up visit. He has been feeling pretty good generally. He has now started treatment with Metformin for his diabetes. He also has started on home oxygen at night, and he has been using a pulmonary nebulizer. He says his energy is getting better. He is able to do some light work. He had been walking, but less now with the winter weather. His ECOG score is 1. He has good appetite. He has not had fever. He does have hot flashes/sweating. He has some sinus drainage and cough, and he does have some shortness of breath. He does not complain of chest pain. He has some nausea and acid reflux associated with hiatal hernia, but that is pretty well controlled with Nexium. He complains that his bowels tend to be pretty soft, which I assume is from radiation. He continues to self catheterize. He says he is full of arthritis. He does not complain of headache or dizziness. He reports having zingers in his feet. Medications: Aspirin Adult Low Strength 1 Tablet (of 81 mg) Tablet, chewable Oral daily, Atenolol 1 Tablet (of 25 mg) Oral daily, [employer] Cortisone Intense Healing 1 Applicator (of 1 %) Cream Topical b.i.d., Esomeprazole Magnesium 1 Capsule (of 40 mg) Capsule Delayed Release Oral daily, Glucophage 1 Tablet (of 500 mg) Oral daily, Glucosamine Chondroitin Triple 1 Tablet Oral daily, Multivitamin Men 50+ 1 Tablet Oral daily, Naproxen Sodium 1 Tablet (of 220 mg) Oral q 8 hours PRN, Tamsulosin HCl 2 Capsule (of 0.4 mg) Capsule Oral at bedtime, Vitamin B 12 1 (5000 mcg) Tablet Oral daily, Zoladex Subcutaneous Allergies: Ibuprofen Vital Signs: Performed on Nov 29, 2021 09:25 Height - 73.00 in Weight - 210 lbs (HIGH) BSA - 2.20 sq.m BMI - 27.71 Temperature - 97.1 F (LOW) Pulse - 58 /min (LOW) Respiration - 17 /min BP - 172/73 mm(hg) (HIGH) O2 Sat - 98 % Pain - 0 Fatigue - 0 Physical Examination: Constitutional - He looks pretty good generally, Eyes - Sclerae nonicteric. Conjunctivae clear, ENMT - No lesions noted in the oral cavity, Hematologic/Lymphatic - No cervical, clavicular, or axillary adenopathy, Respiratory - Lungs souond clear, Cardiovascular - Heart rhythm is regular. There is a II/ systolic murmur. There is no gallop or rub noted, Abdomen - Soft. Liver and spleen are not enlarged. There is no abdominal mass or ascites noted and there is no inguinal adenopathy, Extremities - Slight edema, worse on the left, Integumentary - There is no significant skin eruption, Neurologic - No focal neurologic deficits noted. Lab/Imaging: Test performed on Aug 31, 2021 13:11 PSA < 0.006 ng/mL Test performed on Jun 08, 2021 09:42 Sodium 141 mmol/L Testosterone, Total < 2.5 ng/dL Potassium 4.7 mmol/L Chloride 106 mmol/L CO2 26 mmol/L Anion Gap 13.7 BUN 20 mg/dL Creatinine 0.7 mg/dL Cr Clearance (Est) 101.09 mL/min Glucose 162 mg/dL Osmolality - Calculated 298 mOsm/kg Calcium 8.8 mg/dL Protein, Total 6.4 g/dL Albumin 3.8 g/dL Globulin 2.6 g/dL Bilirubin, Total 1.0 mg/dL ALT (SGPT) 17 U/L AST (SGOT) 17 U/L Alkaline Phosphatase 88 IU/L WBC 5.8 10 3/uL RBC 4.19 10 6/uL HGB 13.2 g/dL HCT 40.3 % MCV 96.2 fL MCH 31.5 pg MCHC 32.8 g/dL RDW 12.5 % Platelet Count 190 10 3/cmm MPV 9.9 fL Neutrophils 3.57 10 3/uL Lymphocytes 1.1 10 3/uL Monocytes 0.8 10 3/uL Eosinophils 0.3 10 3/uL Basophils 0.1 10 3/uL Neutrophil % 61.8 % Lymphocyte % 18.5 % Monocyte % 13.3 % Eosinophil % 4.7 % Basophils % 1.2 % NRBC % 0 % Problem List: 1. Jarek score 8 (4+4) adenocarcinoma of the prostate. By clinical evaluation his disease was stage IIC (T2c, N0, M0) at initial diagnosis in December 2019. 2. He began androgen deprivation therapy with Zoladex together with bicalutamide for 14 days on 02/22/2020. He began radiation to the prostate on 03/30/2020. He completed treatment on 05/25/2020 to a total dose of 7800 cGy. 3. He had pre-existing benign prostatic hypertrophy. He had presented with urinary retention in October 2019. 4. He has a positive family history of breast cancer, but he was confirmed to be BRCA negative. 5. Hiatal hernia/GERD. 6. He has a history of cardiac arrhythmia (atrial flutter). 7. Type 2 diabetes, diet controlled. 8. Peripheral neuropathy. 9. Degenerative arthritis. Problems Addressed with this Encounter and Plan: Patient with Emerson score 8 (4+4) adenocarcinoma of the prostate. By clinical evaluation his disease was stage IIC (T2c, N0, M0) at initial diagnosis in December 2019. He began androgen deprivation therapy with Zoladex together with bicalutamide for 14 days on 02/22/2020. He began radiation to the prostate on 03/30/2020. He completed treatment on 05/25/2020 to a total dose of 7800 cGy. Due to high risk disease, he was recommended to continue androgen deprivation therapy for 1.5 to 3 years, per NCCN guidelines. He received a second injection of Zoladex on 05/23/2020. His third scheduled injection was delayed due to development of a hypersensitivity type skin eruption. The exact cause for the skin eruption was not determined, but it did improve with steroid therapy. He then continued with the third injection of Zoladex on 09/09/2020. He has otherwise tolerated the treatment with acceptable toxicity. During followup his PSA level has remained adequately suppressed. During follow-up he has had ongoing problems with the skin eruption, though it has been adequately managed with topical steroid. He has hot flashes/sweating with the androgen deprivation, as expected. He also has some fatigue. Overall, the side effects have been tolerable. His PSA level has remained adequately suppressed. He will be given Zoladex 10.8 mg today, and this will be his final treatment, as he has now completed 2 years of androgen deprivation therapy. He will be scheduled for a follow-up visit in 3 months. Signed By: Omar Gonsalves M.D. <<Signature on File>>
== END 2021-11-29 06:37 | disposition home or self-care (01) ==
PROVIDERS: PCP Family Medicine; Visit Provider Internal Medicine Medical Oncology
DX: C61 Malignant neoplasm of prostate (principal); N40.1 Benign prostatic hyperplasia with lower urinary tract symptoms; R33.8 Other retention of urine; Z80.3 Family history of malignant neoplasm of breast; K21.9 Gastro-esophageal reflux disease without esophagitis; K44.9 Diaphragmatic hernia without obstruction or gangrene; I48.92 Unspecified atrial flutter; E11.9 Type 2 diabetes mellitus without complications; G62.9 Polyneuropathy, unspecified; M19.90 Unspecified osteoarthritis, unspecified site; Z79.818 Long term (current) use of other agents affecting estrogen receptors and estrogen levels; Z79.899 Other long term (current) drug therapy
CPT/HCPCS: 96372; 96402; 99215; J9202

== ENCOUNTER 2022-01-19 05:30 | Emergency (ER) | payer MEDICARE, OTHER, SELFPAY ==
--- NOTE | 2022-01-19 05:34 | XRR_ITS ---
PROCEDURE INFORMATION: Exam: XR Chest Exam date and time: 01/19/2022 5:52 AM Age: 86 years old Clinical indication: Pain; Chest pressure; Additional info: Cp TECHNIQUE: Imaging protocol: XR of the chest. Views: 1 view. COMPARISON: CR XR ribs LT mn 3V w CXR1V [id number] 01/28/2020 10:30 AM FINDINGS: Lungs: Unremarkable. No consolidation. Pleural spaces: Unremarkable. No pleural effusion. No pneumothorax. Heart/Mediastinum: Large hiatal hernia. Bones/joints: Unremarkable. XR/XR chest 1V portable [id number] IMPRESSION: No acute cardiopulmonary abnormality.
--- NOTE | 2022-01-19 05:34 | ECG_ITS ---
[facility] Test Date: 2022-01-19 Pat Name: Omar Daniel Department: Room: Gender: Male Group Exercise Manager: : 1935 Requested By: Silvino Roberts Order Number: [id number] Lester MD: Odette Cardenas M.D. Measurements Intervals Tram Rate: 79 P: 42 PA: 159 QRS: -33 QRSD: 113 T: 71 QT: 409 QTc: 471 Interpretive Statements SINUS RHYTHM LEFT AXIS DEVIATION [QRS AXIS < -30] POSSIBLE SEPTAL MYOCARDIAL INFARCTION , PROBABLY OLD [30 ms Q WAVE IN V1/V2] Compared to ECG 01/04/2019 05:26:57 Left-axis deviation now present Myocardial infarct finding still present Electronically Signed On 01-19-2022 17:47:26 CDT by Odette Cardenas M.D. [id number]
[2022-01-19 05:39] VITALS: BP 159/69; PULSE 83; RESP 20; TEMP 36.4; O2SAT 96; BMI 26.2
[2022-01-19 05:56] LABS: Basophils % 0.4 %; Eosinophils # 0.1 10^3/uL (0.0-0.8); Eosinophils % 0.6 %; Hematocrit 37.7 % (42.0-52.0); Hemoglobin 12.4 g/dL (11.7-16.6); Lymphocytes # 0.6 10^3/uL (0.8-4.8); Lymphocytes % 5.1 %; Mean Corpuscular HGB Conc 32.9 g/dL (30.0-36.0); Mean Corpuscular Hemoglobin 31.3 pg (28.0-34.0); Mean Corpuscular Volume 95.2 fl (80-94); Mean Platelet Volume 9.7 fL (7.4-10.4); Monocytes # 1.1 10^3/uL (0.2-0.9); Monocytes % 10.4 %; Neutrophils # 9.07 10^3/uL (1.8-7.7); Neutrophils % 83.2 %; Nucleated Red Blood Cells % 0 %; Platelet Count 195 10^3/cmm (130-400); Red Blood Count 3.96 10^6/uL (4.1-5.3); Red Cell Distribution Width 12.6 % (12.1-15.1); White Blood Count 10.9 10^3/uL (4.0-10.0)
[2022-01-19 06:00] VITALS: BP 130/69; PULSE 78; RESP 19; O2SAT 94
[2022-01-19 06:06] LABS: Partial Thromboplastin Time 24.9 SECONDS (23.9-36.7)
[2022-01-19 06:11] LABS: Alanine Aminotransferase 20 U/L (0-41); Albumin Level 3.9 g/dL (3.5-5.2); Alkaline Phosphatase 75 IU/L (40-130); Anion Gap 15.3 (5-19); Aspartate Amino Transferase 20 U/L (0-40); Blood Urea Nitrogen 23 mg/dL (8-23); Calcium 9.2 mg/dL (8.5-10.5); Carbon Dioxide 25 mmol/L (22-29); Chloride 104 mmol/L (98-107); Creatinine Clr Calc Pharmacy 85.3958; Globulin 2.4 g/dL (1.3-4.6); Glucose 184 mg/dL (65-115); Lipase 16 U/L (13-60); Osmolality Calculated 298 mOsm/kg (285-295); Potassium 4.3 mmol/L (3.5-5.1); Sodium 140 mmol/L (136-145); Total Bilirubin 0.9 mg/dL (0.15-1.2); Total Protein 6.3 g/dL (6.6-8.7)
[2022-01-19 06:12] LABS: Troponin(5th) Baseline 12 ng/L (0-15)
--- NOTE | 2022-01-19 06:23 | ED_ITS ---
HPI - Chest Pain General: Chief Complaint: Chest Pain Stated Complaint: cp Time Seen by Provider: 01/19/22 06:10 History of Present Illness: 86-year-old male [facility] chief complaint of having intermittent episodes of chest discomfort that started since late last night woke him up 2-3 times. Patient has a history of a hiatal hernia. He reports that he did have some passing gas prior to going to sleep reports he is on Protonix for this. The patient reports history of atrial fibrillation that he is on metoprolol as well as low-dose aspirin for he did report some mild pleuritic chest pain prior to arrival that is appear to be resolved. He recalls no pre-existing history of any pulmonary embolisms or blood clots. The patient reports the pain is almost nearly resolved now he reports that he did have some mild abdominal distention feeling as well. 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 Associated symptoms: Reports abdominal pain; Deny dyspnea, fever(s), nausea or vomiting Review of Systems General: Reports: 10 or more systems reviewed and unremarkable except in HPI and below Const: Denies: fever(s), chills, fatigue or malaise Eyes: Denies: change in vision or blurry vision Card: Reports: chest pain Resp: Denies: dyspnea or productive cough GI: Reports: abdominal pain, heartburn, bloating, belching and excessive flatus; Denies: nausea or vomiting : Denies: flank pain Musc: Denies: extremity pain or extremity swelling Skin/Breast: Denies: rash or pruritus Neuro: Denies: headache(s) Psych: Denies: anxiety or depression Andrzej/Lymph: Denies: easy bleeding All/Imm: Denies: urticaria, throat swelling or facial swelling PFS ED PFSH: Medical History (Updated 01/19/22 @ 08:23 by Ranjan Vargas) 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 Elevated PSA Prostate cancer Prostate nodule Urinary retention Surgical History History of amputation of finger of right hand History of rhinoplasty History of tonsillectomy and adenoidectomy Hx of bilateral cataract extraction Hx of umbilical hernia repair Hx of vasectomy S/P knee replacement Family History Family/Other Diabetes Dementia Social History Smoking and tobacco status: former smoker Alcohol intake: current Alcohol intake frequency: few times a week Adopted: No Caregiver/support person: No Lives independently: No Household members: spouse Marital status: Current occupational status: retired History of recent travel: No Current gender identity: Male Physical Exam Const: COMMON NORMALS: no acute distress, patient oriented x3 and healthy appearing OTHER: Patient appears nontoxic appears in no obvious acute distress. HENMT: COMMON NORMALS: normocephalic and atraumatic HEAD & SCALP: normocephalic and atraumatic Eye: COMMON NORMALS: Equal, round and reactive pupils present and EOMs intact bilaterally PUPIL: Yes Equal, round and reactive pupils present Neck/C-Spine: COMMON NORMALS: full ROM, supple and no JVD Lymph: LYMPHATIC: no lymphadenopathy noted Chest: COMMONS NORMALS: normal inspection of the chest and normal palpation of entire chest wall Resp: COMMON NORMALS: normal respiratory effort, No retractions and clear to auscultation bilaterally EFFORT & INSPECTION: Yes able to speak in complete sentences and Yes symmetric chest movement AUSCULTATION: clear to auscultation bilaterally OTHER: Equal breath sounds appreciated bilaterally no obvious wheezing crackles rales or rhonchi noted no tachypnea apparent Cardio: COMMON NORMALS: no JVD, regular rate and regular rhythm RATE: regular rate RHYTHM: regular rhythm GI: COMMON NORMALS: Normal to inspection, nondistended, normoactive bowel sounds present, Soft to palpation and non-tender INSPECTION: Yes normal to inspection PALPATION: Yes Soft to palpation OTHER: Mild abdominal distention noted : COMMON NORMALS: Yes no CVA tenderness BLADDER/KIDNEY EXAM: Yes no CVA tenderness Back/Pelvis: COMMON NORMALS: no CVA tenderness Extremity: COMMON NORMALS: normal to inspection and full ROM Neuro: COMMON NORMALS: patient oriented x3, CN's II-XII intact bilaterally, moves all extremities and no focal motor deficits Psych: COMMON NORMALS: mental status grossly normal, Normal thought process present, cooperative and normal affect THOUGHT PROCESS: Normal thought process present Skin: COMMON NORMALS: no rashes or lesions noted GENERAL SKIN EXAM: no rashes or lesions noted Course Vital Signs: Vital signs: Vital Signs Temperature 97.6 F 01/19/22 05:39 Pulse Rate 76 01/19/22 06:29 Respiratory Rate 16 01/19/22 06:29 Blood Pressure 162/75 01/19/22 06:29 Pulse Oximetry 95 01/19/22 06:29 MDM - Chest Pain Medical Decision Making Due to the patient's symptoms and condition lab work and imaging will be obtained we will continue to follow currently the patient's chest pain is nearly resolved already been provided aspirin prior to arrival evaluated the patient in which she. He reported his chest pain returned will be provided nitroglycerin tablet ultimately this may be more of GI origin however will be doing a cardiac rule out. We will continue to follow Second troponin came back unremarkable patient was reevaluated remaining asym ptomatic throughout his emergency department start him on some Carafate for his breakthrough discomfort advised further follow-up primary care in 2 to 3 days which patient was advised to return the interim if any of his symptoms persist or worse. Lab Data : 01/19/22 05:50 01/19/22 05:50 Radiology Impressions Chest X-Ray 01/19/22 05:34 IMPRESSION: No acute cardiopulmonary abnormality. Laboratory Results WBC 10.9 10^3/uL (4.0-10.0) H 01/19/22 05:50 RBC 3.96 10^6/uL (4.1-5.3) L 01/19/22 05:50 Hgb 12.4 g/dL (11.7-16.6) 01/19/22 05:50 Hct 37.7 % (42.0-52.0) L 01/19/22 05:50 MCV 95.2 fl (80-94) H 01/19/22 05:50 MCH 31.3 pg (28.0-34.0) 01/19/22 05:50 MCHC 32.9 g/dL (30.0-36.0) 01/19/22 05:50 RDW 12.6 % (12.1-15.1) 01/19/22 05:50 Plt Count 195 10^3/cmm (130-400) 01/19/22 05:50 MPV 9.7 fL (7.4-10.4) 01/19/22 05:50 Neut % (Auto) 83.2 % 01/19/22 05:50 Lymph % (Auto) 5.1 % 01/19/22 05:50 [place] % (Auto) 10.4 % 01/19/22 05:50 Eos % (Auto) 0.6 % 01/19/22 05:50 Baso % (Auto) 0.4 % 01/19/22 05:50 Neut # (Auto) 9.07 10^3/uL (1.8-7.7) H 01/19/22 05:50 Lymph # (Auto) 0.6 10^3/uL (0.8-4.8) L 01/19/22 05:50 [place] # (Auto) 1.1 10^3/uL (0.2-0.9) H 01/19/22 05:50 Eos # (Auto) 0.1 10^3/uL (0.0-0.8) 01/19/22 05:50 Baso # (Auto) 0.0 10^3/uL (0.0-0.1) 01/19/22 05:50 Nucleated RBC % (auto) 0 % 01/19/22 05:50 Nucleated RBCs # 0.0 /100WBC 01/19/22 05:50 APTT 24.9 SECONDS (23.9-36.7) 01/19/22 05:50 Sodium 140 mmol/L (136-145) 01/19/22 05:50 Potassium 4.3 mmol/L (3.5-5.1) 01/19/22 05:50 Chloride 104 mmol/L (98-107) 01/19/22 05:50 Carbon Dioxide 25 mmol/L (22-29) 01/19/22 05:50 Anion Gap 15.3 (5-19) 01/19/22 05:50 BUN 23 mg/dL (8-23) 01/19/22 05:50 Creatinine 0.7 mg/dL (0.7-1.2) 01/19/22 05:50 GFR Calculation Not Reportable 01/19/22 05:50 Glucose 184 mg/dL (65-115) H 01/19/22 05:50 Calculated Osmolality 298 mOsm/kg (285-295) H 01/19/22 05:50 Calcium 9.2 mg/dL (8.5-10.5) 01/19/22 05:50 Total Bilirubin 0.9 mg/dL (0.15-1.2) 01/19/22 05:50 AST 20 U/L (0-40) 01/19/22 05:50 ALT 20 U/L (0-41) 01/19/22 05:50 Alkaline Phosphatase 75 IU/L (40-130) 01/19/22 05:50 Troponin T Baseline 12 ng/L (0-15) 01/19/22 05:50 Troponin T 120 Minute 11.73 ng/L (0-15) 01/19/22 07:31 Delta Troponin T -0.27 ABS# (0-10) L 01/19/22 07:31 Total Protein 6.3 g/dL (6.6-8.7) L 01/19/22 05:50 Albumin 3.9 g/dL (3.5-5.2) 01/19/22 05:50 Globulin 2.4 g/dL (1.3-4.6) 01/19/22 05:50 Lipase 16 U/L (13-60) 01/19/22 05:50 Discharge Plan Discharge Patient Disposition: Home Clinical Impression: Atypical chest pain, Dyspepsia Condition: Stable Prescriptions: New Carafate 1 gram tablet 1 g PO BID PRN (Reason: upper abdominal pain) Qty: 20 0RF No Action lidocaine HCl 2 % jelly 20 ml topical ONCE Qty: 1 0RF gentamicin 40 mg/mL solution 80 mg IM ONCE Qty: 2 0RF aspirin [Adult Low Dose Aspirin] 81 mg tablet,delayed release (DR/EC) 81 mg PO DAILY 0RF Zoladex 10.8 mg implant SUBCUT 0RF azelastine 137 mcg (0.1 %) aerosol,spray 1 spray intranasal BID PRN0RF Rx Instructions: administer into each nostril clobetasol 0.05 % ointment 1 applic topical BID 0RF levalbuterol tartrate [Xopenex HFA] 45 mcg/actuation HFA aerosol inhaler 2 inh inhalation Q6H PRN0RF Refresh Liquigel 1 % drops, liquid gel 2 drp ophthalmic (eye) BID 0RF atenolol 25 mg tablet 25 mg PO DAILY 0RF sulfamethoxazole-trimethoprim 800-160 mg tablet See Rx Instructions .ROUTE .COMPLEX Qty: 28 3RF Dose Instruction: TAKE ONE TABLET BY MOUTH TWICE DAILY Rx Instructions: TAKE ONE TABLET BY MOUTH TWICE DAILY esomeprazole magnesium 40 mg Capsule,Delayed Release(Dr/Ec) 40 mg PO DAILY 0RF Vytorin 10-20 10-20 mg Tablet 1 tab PO QPM 0RF Glucosamine PO DAILY 0RF Multi Vitamin PO DAILY 0RF Vitamin B-12 PO DAILY 0RF tamsulosin 0.4 mg capsule 0.8 mg PO DAILY 0RF Discharge Orders: Discharge ED (Routine); Ordered 01/19/22 Ordered By: Ranjan Vargas Referrals: Tamiko Louis DO [Primary Care Provider] - 1-3 days Discharge Diet: Advance as tolerated Discharge Activity: Resume usual activity Patient Instructions: Chest Pain - Noncardiac, Chest Pain (ED), Hiatal Hernia (ED), Indigestion (ED), Opioid Safety Coding Level of Care Code ED Conveyor Belt Installer for Pierre Fwd Exam Comprehensive
[2022-01-19 06:29] VITALS: BP 162/75; PULSE 76; RESP 16; O2SAT 95
--- NOTE | 2022-01-19 07:34 | ECG_ITS ---
[facility] Test Date: 2022-01-19 Pat Name: Omar Daniel Department: Room: Gender: Male Applications Specialist: : 1935 Requested By: Silvino Roberts Order Number: [id number] Lester MD: Odette Cardenas M.D. Measurements Intervals [place] Rate: 75 P: 49 SD: 167 QRS: -37 QRSD: 104 T: 72 QT: 410 QTc: 458 Interpretive Statements SINUS RHYTHM LEFT AXIS DEVIATION [QRS AXIS < -30] NONSPECIFIC ST & T-WAVE ABNORMALITY Compared to ECG 01/19/2022 05:42:10 T-wave abnormality now present Myocardial infarct finding no longer present Electronically Signed On 01-19-2022 17:53:24 CDT by Odette Cardenas M.D. [id number]
[2022-01-19 08:02] LABS: Troponin 5 2HR 11.73 ng/L (0-15)
[2022-01-19 08:13] LABS: Troponin 5 2HR Delta -0.27 ABS# (0-10)
[2022-01-19 09:08] VITALS: BP 139/61; PULSE 76; RESP 19; O2SAT 95
--- NOTE | 2022-01-19 11:34 | ECG_ITS ---
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 Measurements Intervals [place] Rate: 75 P: 49 MA: 161 QRS: -37 QRSD: 113 T: 73 QT: 439 QTc: 493 Interpretive Statements SINUS RHYTHM WITH OCCASIONAL SUPRAVENTRICULAR PREMATURE COMPLEXES LEFT AXIS DEVIATION [QRS AXIS < -30] POSSIBLE SEPTAL MYOCARDIAL INFARCTION , PROBABLY OLD [30 ms Q WAVE IN V1/V2] Compared to ECG 01/19/2022 07:26:03 Myocardial infarct finding now present T-wave abnormality no longer present Electronically Signed On 01-19-2022 17:54:43 CDT by Odette Cardenas M.D. [email or web address]/store/[id number]
== END 2022-01-19 09:11 | disposition home or self-care (01) ==
PROVIDERS: Emergency Medicine; Emergency Provider Emergency Medicine; PCP Family Medicine
DX: R07.89 Other chest pain (principal); R10.13 Epigastric pain; Z79.82 Long term (current) use of aspirin; Z85.46 Personal history of malignant neoplasm of prostate; Z87.891 Personal history of nicotine dependence
CPT/HCPCS: 71045; 80053; 83690; 84484; 85025; 85730; 93005; 99283

== ENCOUNTER 2022-03-08 11:04 | Oncology outpatient (recurring) (ONCR) | payer MEDICARE, OTHER, SELFPAY ==
[2022-03-08 14:18] LABS: Iron 74 ug/dL (59-158); Percent Saturation 33.1 % (20-50); Total Iron Binding Capacity 223 mcg/dl; Unsaturated Iron Binding 149 ug/dL (112-347)
[2022-03-08 14:33] LABS: Vitamin B12 1568 pg/mL (232-1245)
== END 2022-03-27 23:59 | disposition home or self-care (01) ==
LOC: ONCMED 11:06
PROVIDERS: PCP Family Medicine; Referring Provider Radiology Radiation Oncology; Visit Provider Internal Medicine Medical Oncology
DX: C61 Malignant neoplasm of prostate (principal); R33.9 Retention of urine, unspecified; L27.0 Generalized skin eruption due to drugs and medicaments taken internally; D64.9 Anemia, unspecified; Z79.899 Other long term (current) drug therapy; Z79.52 Long term (current) use of systemic steroids; Z79.818 Long term (current) use of other agents affecting estrogen receptors and estrogen levels; Z92.3 Personal history of irradiation
CPT/HCPCS: 36415; 80053; 82607; 83540; 83550; 84153; 85025; 99214; 99999

== ENCOUNTER 2022-03-26 10:13 | Emergency (ER) | payer MEDICARE, OTHER, SELFPAY ==
[2022-03-26 10:18] VITALS: BP 176/86; PULSE 63; RESP 15; TEMP 36.6; O2SAT 97; BMI 25.5
[2022-03-26 10:32] VITALS: BP 195/84; PULSE 58; RESP 16; O2SAT 95
--- NOTE | 2022-03-26 10:34 | PC.NURSE ---
PATIENT REPORTS TO THE ED WITH A CHIEF COMPLAINT OF A SORE THROAT AND UNABLE TO SWALLOW DUE TO A MASS LIKE FEELING. PATIENTS AIRWAY IS PATENT AND IS ABLE TO SWALLOW SOME LIQUIDS. PT HAS A HX OF PROSTATE CANCER AND IS A/O x4
--- NOTE | 2022-03-26 10:41 | CTR_ITS ---
PROCEDURE INFORMATION: Exam: CT Neck With Contrast Exam date and time: 03/26/2022 11:30 AM Age: 86 years old Clinical indication: Dysphagia / difficulty swallowing; Prior surgery; Surgery type: Rhinoplasty. Tonsill/adenoidectomy. Cochlear implant. Patient HX: Patient C/O of worsening sore throat with dysphagia x 3 days. Feels like something caught in throat. History of prostate cancer. ; Additional info: Concern for mass TECHNIQUE: Imaging protocol: Computed tomography images of the neck with contrast. Sagittal and coronal reformatted images were created and reviewed. Radiation optimization: All CT scans at this facility use at least one of these dose optimization techniques: automated exposure control; mA and/or kV adjustment per patient size (includes targeted exams where dose is matched to clinical indication); or iterative reconstruction. Contrast material: OMNI 300; Contrast volume: 50 ml; Contrast route: INTRAVENOUS (IV); COMPARISON: NM bone scan whole body* [id number] 01/28/2020 8:00 AM RADIATION DOSE METRICS: Total DLP (mGy-cm): 337.31 FINDINGS: Tubes, catheters and devices: Patient has had a previous left mastoidectomy with placement of a cochlear implant. Orbital cavities: No acute abnormality in the visualized orbits. Mastoid air cells: Large amount of fluid in the right mastoid air cells. Paranasal sinuses: Complete opacification of the right maxillary sinus and right sphenoid sinus. Mild to moderate mucoperiosteal thickening in the other visualized sinuses. Sclerosis in thickening of the bang of the right maxillary and right sphenoid sinuses, suggesting sequela of chronic inflammation. Pharynx: Unremarkable. No significant tonsillar enlargement. Larynx: Indeterminate nodular foci in the vallecula and on the anterior epiglottis, the larger of these measures 1.1 x 0.9 cm (series 3, images 67 and 69). Prevertebral and retropharyngeal spaces: Unremarkable. Parotid and submandibular glands: Unremarkable. Glands are normal in size. Thyroid: The thyroid gland is unremarkable. Lymph nodes: No lymphadenopathy. Trachea: The trachea is midline and patent. Lungs: Visualized lungs are clear. Bones/joints: Multilevel degenerative changes of varying severity in the visualized spine. Vasculature: Atherosclerotic changes in the visualized arteries. Soft tissues: No soft tissue swelling. No radiopaque foreign body. CT/CT neck w con* [id number] IMPRESSION: 1. Indeterminate nodular foci in the vallecula and on the anterior epiglottis. Possible masses cannot be ruled out. Recommend clinical correlation and further evaluation with direct visualization. 2. Complete opacification of the right maxillary sinus and right sphenoid sinus. Mild to moderate mucoperiosteal thickening in the other visualized sinuses. 3. Large amount of fluid in the right mastoid air cells. 4. Patient has had a previous left mastoidectomy with placement of a cochlear implant. 5. Incidental/nonacute findings are listed in the report. COMMENTS: Urgent results were discussed with Giovanni Ly on 03/26/2022 at 12:39 PM CDT.
--- NOTE | 2022-03-26 11:03 | XRR_ITS ---
PROCEDURE INFORMATION: Exam: XR Chest Exam date and time: 03/26/2022 11:17 AM Age: 86 years old Clinical indication: Other: Mass; Additional info: Cough TECHNIQUE: Imaging protocol: XR of the chest. Views: 2 views. COMPARISON: CR XR chest 1V portable [id number] 01/19/2022 5:52 AM FINDINGS: Lungs: Basilar opacity seen best on lateral view. Pleural spaces: No pleural effusion. No pneumothorax. Heart/Mediastinum: No cardiomegaly. Bones/joints: Visualized osseous structures are intact. XR/XR chest 2V* [id number] IMPRESSION: Basilar opacity, potentially pneumonia.
[2022-03-26 11:06] VITALS: BP 172/75; PULSE 54; RESP 18; O2SAT 95
[2022-03-26] MEDS: dexamethasone 10 mg/mL INJ IVP (11:07)
[2022-03-26 11:08] LABS: Basophils # 0.1 10^3/uL (0.0-0.1); Basophils % 0.9 %; Eosinophils # 0.2 10^3/uL (0.0-0.8); Hematocrit 34.5 % (42.0-52.0); Hemoglobin 11.5 g/dL (11.7-16.6); Lymphocytes # 0.9 10^3/uL (0.8-4.8); Lymphocytes % 9.8 %; Mean Corpuscular HGB Conc 33.3 g/dL (30.0-36.0); Mean Corpuscular Hemoglobin 31.6 pg (28.0-34.0); Mean Corpuscular Volume 94.8 fl (80-94); Mean Platelet Volume 9.9 fL (7.4-10.4); Monocytes # 1.3 10^3/uL (0.2-0.9); Monocytes % 14.8 %; Neutrophils # 6.43 10^3/uL (1.8-7.7); Neutrophils % 72.2 %; Nucleated Red Blood Cells % 0 %; Platelet Count 178 10^3/cmm (130-400); Red Blood Count 3.64 10^6/uL (4.1-5.3); Red Cell Distribution Width 13.4 % (12.1-15.1); White Blood Count 8.9 10^3/uL (4.0-10.0)
[2022-03-26 11:18] LABS: Rapid Strep A Test Negative (Negative)
[2022-03-26 11:25] LABS: Alanine Aminotransferase 13 U/L (0-41); Albumin Level 3.8 g/dL (3.5-5.2); Alkaline Phosphatase 76 IU/L (40-130); Anion Gap 13.3 (5-19); Aspartate Amino Transferase 15 U/L (0-40); Blood Urea Nitrogen 18 mg/dL (8-23); Calcium 8.9 mg/dL (8.5-10.5); Carbon Dioxide 25 mmol/L (22-29); Chloride 104 mmol/L (98-107); Globulin 2.9 g/dL (1.3-4.6); Glucose 165 mg/dL (65-115); Osmolality Calculated 292 mOsm/kg (285-295); Potassium 4.3 mmol/L (3.5-5.1); Sodium 138 mmol/L (136-145); Total Bilirubin 1.3 mg/dL (0.15-1.2); Total Protein 6.7 g/dL (6.6-8.7)
[2022-03-26] MEDS: iohexol 300 mg/mL 50 mL Btl IV (11:37)
--- NOTE | 2022-03-26 11:46 | W.ED.NAVMDI ---
HPI - Nausea/Vomiting/Diarrhea General: Chief complaint: Airway/Esophagus Foreign Body Stated complaint: Sore throat, feels like a mass in his throat Time Seen by Provider: 03/26/22 10:32 History of Present Illness: Patient comes in with throat pain and difficulty swallowing. States he has had a sore throat for the past couple of days. No fever, vomiting, or diarrhea. States that he also has a hoarse voice. Associated nausea: No Associated symtoms: Denies anxiety, change in vision, chest pain, dysuria, headache(s), nausea or palpitations Review of Systems Const: Denies: fever(s) or body aches Eyes: Denies: change in vision or blurry vision ENMT: Reports: throat pain and odynophagia Card: Denies: chest pain or palpitations Resp: Denies: dyspnea or productive cough GI: Denies: abdominal pain, nausea or vomiting : Denies: flank pain or dysuria Musc: Denies: neck pain or back pain Skin/Breast: Denies: rash or pruritus Neuro: Denies: headache(s) or numbness in extremities Psych: Denies: anxiety or change in appetite Endo: Denies: polyuria or excessive sweating PFSH ED PFSH: Medical History (Updated 03/26/22 @ 13:23 by Giovanni Estrada MD) 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, 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 History of atrial flutter History of benign prostatic hyperplasia Urinary retention Surgical History (Updated 03/11/22 @ 11:17 by Omar Gonsalves MD) History of amputation of finger of right hand History of cochlear implant History of rhinoplasty History of tonsillectomy and adenoidectomy Hx of bilateral cataract extraction Hx of umbilical hernia repair Hx of vasectomy S/P knee replacement Family History Family/Other Diabetes Dementia Cancer Breast cancer Mother , at age 37 Tuberculosis Lung disease Tuberculosis Father , at age 79 CAD (coronary artery disease) Denies family history of Clotting disorder Hyperlipidemia Psychiatric illness Chronic kidney disease (CKD) Suicide Anesthesia complication Bleeding disorder Hypertension Stroke Social History (Updated 03/08/22 @ 12:41 by Leydi Roland LPN) Smoking and tobacco status: former smoker Alcohol intake: former Adopted: No Caregiver/support person: No Lives independently: No Household members: spouse Marital status: Current occupational status: retired History of recent travel: No Current gender identity: Male Physical Exam Const: COMMON NORMALS: no acute distress, patient oriented x3, healthy appearing and alert HENMT: COMMON NORMALS: normocephalic and atraumatic HEAD & SCALP: normocephalic and atraumatic Eye: COMMON NORMALS: Equal, round and reactive pupils present and EOMs intact bilaterally PUPIL: Yes Equal, round and reactive pupils present Neck/C-Spine: COMMON NORMALS: full ROM and supple Resp: COMMON NORMALS: normal respiratory effort, No retractions and No use of accessory muscles Cardio: COMMON NORMALS: regular rate and regular rhythm RATE: regular rate RHYTHM: regular rhythm GI: COMMON NORMALS: Normal to inspection, nondistended, normoactive bowel sounds present, Soft to palpation and non-tender PALPATION: Yes Soft to palpation Back/Pelvis: COMMON NORMALS: thoracic and lumbar spine normal to inspection and no thoracic nor lumbar tenderness Extremity: COMMON NORMALS: normal to inspection and full ROM Neuro: COMMON NORMALS: patient oriented x3 SENSORIUM/ORIENTATION: Yes alert Psych: COMMON NORMALS: mental status grossly normal and cooperative Skin: COMMON NORMALS: no rashes or lesions noted and no wounds GENERAL SKIN EXAM: no rashes or lesions noted Course Vital Signs: Vital signs: Vital Signs Temperature 97.9 F 03/26/22 10:18 Pulse Rate 65 03/26/22 12:43 Respiratory Rate 16 03/26/22 12:43 Blood Pressure 168/86 03/26/22 12:43 Pulse Oximetry 93 03/26/22 12:43 MDM - Nausea/Vomiting/Diarrhea Medical Decision Making Patient comes in with throat pain and difficulty swallowing. States he has had a sore throat for the past couple of days. No fever, vomiting, or diarrhea. States that he also has a hoarse voice. Physical exam is unremarkable. Will check labs, CT neck, give a dose of Decadron, and reassess. On reassessment I talked to the patient about the test results. We do not have ENT here, and I do not have a fiberoptic scope that I can directly visualize this nodule, so I discussed the case with the emergency department at [facility] and we will transfer for further work-up and treatment of this epiglottis nodule. Lab Data : 03/26/22 11:00 03/26/22 11:[address] 03/26/22 10:41 IMPRESSION: 1. Indeterminate nodular foci in the vallecula and on the anterior epiglottis. Possible masses cannot be ruled out. Recommend clinical correlation and further evaluation with direct visualization. 2. Complete opacification of the right maxillary sinus and right sphenoid sinus. Mild to moderate mucoperiosteal thickening in the other visualized sinuses. 3. Large amount of fluid in the right mastoid air cells. 4. Patient has had a previous left mastoidectomy with placement of a cochlear implant. 5. Incidental/nonacute findings are listed in the report. COMMENTS: Urgent results were discussed with Giovanni Ly on 03/26/2022 at 12:39 PM CDT. Chest X-Ray 03/26/22 11:03 IMPRESSION: Basilar opacity, potentially pneumonia. Laboratory Results WBC 8.9 10^3/uL (4.0-10.0) 03/26/22 11:00 RBC 3.64 10^6/uL (4.1-5.3) L 03/26/22 11:00 Hgb 11.5 g/dL (11.7-16.6) L 03/26/22 11:00 Hct 34.5 % (42.0-52.0) L 03/26/22 11:00 MCV 94.8 fl (80-94) H 03/26/22 11:00 MCH 31.6 pg (28.0-34.0) 03/26/22 11:00 MCHC 33.3 g/dL (30.0-36.0) 03/26/22 11:00 RDW 13.4 % (12.1-15.1) 03/26/22 11:00 Plt Count 178 10^3/cmm (130-400) 03/26/22 11:00 MPV 9.9 fL (7.4-10.4) 03/26/22 11:00 Neut % (Auto) 72.2 % 03/26/22 11:00 Lymph % (Auto) 9.8 % 03/26/22 11:00 [place] % (Auto) 14.8 % 03/26/22 11:00 Eos % (Auto) 2.0 % 03/26/22 11:00 Baso % (Auto) 0.9 % 03/26/22 11:00 Neut # (Auto) 6.43 10^3/uL (1.8-7.7) 03/26/22 11:00 Lymph # (Auto) 0.9 10^3/uL (0.8-4.8) 03/26/22 11:00 [place] # (Auto) 1.3 10^3/uL (0.2-0.9) H 03/26/22 11:00 Eos # (Auto) 0.2 10^3/uL (0.0-0.8) 03/26/22 11:00 Baso # (Auto) 0.1 10^3/uL (0.0-0.1) 03/26/22 11:00 Nucleated RBC % (auto) 0 % 03/26/22 11:00 Nucleated RBCs # 0.0 /100WBC 03/26/22 11:00 Sodium 138 mmol/L (136-145) 03/26/22 11:00 Potassium 4.3 mmol/L (3.5-5.1) 03/26/22 11:00 Chloride 104 mmol/L (98-107) 03/26/22 11:00 Carbon Dioxide 25 mmol/L (22-29) 03/26/22 11:00 Anion Gap 13.3 (5-19) 03/26/22 11:00 BUN 18 mg/dL (8-23) 03/26/22 11:00 Creatinine 0.8 mg/dL (0.7-1.2) 03/26/22 11:00 GFR Calculation Not Reportable 03/26/22 11:00 Glucose 165 mg/dL (65-115) H 03/26/22 11:00 Calculated Osmolality 292 mOsm/kg (285-295) 03/26/22 11:00 Calcium 8.9 mg/dL (8.5-10.5) 03/26/22 11:00 Total Bilirubin 1.3 mg/dL (0.15-1.2) H 03/26/22 11:00 AST 15 U/L (0-40) 03/26/22 11:00 ALT 13 U/L (0-41) 03/26/22 11:00 Alkaline Phosphatase 76 IU/L (40-130) 03/26/22 11:00 Total Protein 6.7 g/dL (6.6-8.7) 03/26/22 11:00 Albumin 3.8 g/dL (3.5-5.2) 03/26/22 11:00 Globulin 2.9 g/dL (1.3-4.6) 03/26/22 11:00 Group A Strep Rapid Negative (Negative) 03/26/22 11:07 Discharge Plan Discharge Patient Disposition: Xfer Short-Term Hosp Clinical Impression: Mass of epiglottis Condition: Stable Discharge Orders: Transfer Out of Facility (Order); Ordered 03/26/22 Ordered By: Giovanni Estrada Referrals: Tamiko Louis DO [Primary Care Provider] - Coding Level of Care Code ED Teaching Young for Chg Fwd Exam Comprehensive
[2022-03-26 12:43] VITALS: BP 168/86; PULSE 65; RESP 16; O2SAT 93
== END 2022-03-26 14:54 | disposition short-term general hospital (02) ==
PROVIDERS: Emergency Provider Emergency Medicine; PCP Family Medicine
DX: J38.7 Other diseases of larynx (principal)
CPT/HCPCS: 70491; 71046; 80053; 85025; 87081; 87880; 96374; 99283; J1100; Q9967

== ENCOUNTER 2022-04-20 08:38 | Outpatient (CLI) | payer MEDICARE, OTHER, SELFPAY ==
--- NOTE | 2022-04-20 08:47 | FL_ITS ---
WS: [id number] Exam: FL barium swallow [id number] Date/Time of Exam: 04/20/2022 8:56 AM Reason For Exam: DYSPHAGIA Fluoroscopy time: 2 minutes # of spot films: 23 The patient demonstrated significant aspiration of thin liquid barium during the exam. Opacification of the esophagus demonstrated no sign of esophageal stricture or mass. Mild esophageal spasm. A large hiatal hernia was noted. The exam was terminated prematurely when aspiration was detected. Recommendations: A modified barium swallow should be considered for more comprehensive evaluation. FL/FL barium swallow [id number] IMPRESSION: 1. The patient demonstrated significant aspiration when ingesting thin liquid b arium. 2. Limited visualization of the esophagus demonstrated no obvious esophageal ma ss or stricture. Large hiatal hernia was noted. Mild esophageal spasm.
== END 2022-04-20 08:39 | disposition home or self-care (01) ==
LOC: RAD 08:40
PROVIDERS: PCP Family Medicine; Visit Provider Specialist
DX: R13.10 Dysphagia, unspecified (principal)
CPT/HCPCS: 74220

== ENCOUNTER 2022-06-04 08:31 | Outpatient (CLI) | payer MEDICARE, OTHER, SELFPAY ==
--- NOTE | 2022-06-04 09:29 | FL_ITS ---
WS: [id number] FL barium swallow modifd [id number] REASON FOR EXAM: Other dysphagia FLUOROSCOPY TIME: 3min [id number] # OF SPOT FILMS: 17 FINDINGS: Patient was examined in the upright sitting position. The swallowing of varying consistencies of orxie um was performed in the supervision of the speech therapy department. Fluoroscopic video and multiple spot films were obtained. There appear to be a mass effect in the region of the epiglottis/base upon. There was no obstruction to flow through the cervical or thoracic esophagus. Small amount of aspiration was identified late in the examination. Detailed analysis and report will be rendered by the speech therapy department. FL/FL barium swallow modifd [id number] IMPRESSION: Modified barium swallow as described above.
== END 2022-06-04 08:32 | disposition home or self-care (01) ==
LOC: RAD 08:32
PROVIDERS: PCP Family Medicine; Visit Provider Specialist
DX: R13.19 Other dysphagia (principal)
CPT/HCPCS: 74230; 92611

== ENCOUNTER 2022-06-06 15:15 | Outpatient (CLI) | payer MEDICARE, OTHER, SELFPAY ==
--- NOTE | 2022-06-06 15:22 | CT_ITS ---
WS: [id number] CT HEAD WITH CONTRAST TECHNIQUE: Contrast-enhanced CT of the head. CLINICAL INFORMATION: BENIGN NEOPLASM OF HYPOPHARYNX/OTHER DYSPHAGIA COMPARISON: 2012 DLP: 2184.[address] scans at [facility] use at least one of these dose optimization techniques: automated e xposure control; mA and/or kV adjustment per patient size (includes targeted exams where dose is matc hed to clinical indication); or iterative reconstruction. FINDINGS: Beam hardening artifact from LEFT cochlear implant degrades some images. No evidence of enhancing int racranial metastatic disease. No extra axial fluid collections. Mild small vessel changes. Moderate p arenchymal volume loss. Mucosal thickening LEFT mastoid tip. Opacification RIGHT mastoid air cells. Chronic appearing opacifi cation of the RIGHT maxillary sinus and RIGHT sphenoid sinus. Mucosal thickening ethmoid air cells. Normal posterior nasopharynx. CT/CT head wo/w con [id number] IMPRESSION: 1. No evidence of enhancing intracranial mass or lesion. 2. No hydrocephalus. 3. Mild small vessel changes with moderate parenchymal volume loss. 4. Cochlear implant degrades some images due to beam hardening artifact. 5. Chronic opacification RIGHT mastoid air cells. 6. Chronic appearing opacification RIGHT maxillary sinus and RIGHT sphenoid si nus. Mild mucosal thickening in the ethmoid air cells.
[2022-06-06] MEDS: iohexol 350 mg/mL 100 mL Btl IV (16:14)
== END 2022-06-06 15:16 | disposition home or self-care (01) ==
PROVIDERS: PCP Family Medicine; Visit Provider Specialist
DX: D10.7 Benign neoplasm of hypopharynx (principal); J32.8 Other chronic sinusitis; R13.19 Other dysphagia; Z96.21 Cochlear implant status
CPT/HCPCS: 70470

== ENCOUNTER 2022-07-16 08:23 | Outpatient (CLI) | payer MEDICARE, OTHER, SELFPAY ==
--- NOTE | 2022-07-16 08:29 | CT_ITS ---
WS: [id number] CT NECK TECHNIQUE: Contrast-enhanced CT of the neck with coronal and sagittal reformatted images. CLINICAL INFORMATION: BENIGN NEOPLASM OF HYPOPHARYNX COMPARISON: CT March 26, 2022 DLP: 255.[address] scans at [facility] use at least one of these dose optimization techniques: automated e xposure control; mA and/or kV adjustment per patient size (includes targeted exams where dose is matc hed to clinical indication); or iterative reconstruction. FINDINGS: Prior postoperative changes canal wall up LEFT partial mastoidectomy with LEFT cochlear implant. LEFT mastoid air cells are well aerated. Opacification RIGHT mastoid air cells and middle ear. RIGHT maxillary sinusitis with air-fluid level. Chronic sclerosis involving the RIGHT maxillary sinus and RIGHT sphenoid sinus. Opacification RIGHT sphenoid sinus. Retention cyst LEFT maxillary sinus. M ild mucosal thickening with opacification RIGHT sphenoid sinus ostia. Parotid glands are normal. Normal submandibular glands. Normal parapharyngeal fat. Polypoid lesion in volving the RIGHT epiglottis measuring 7 mm is unchanged from previous. Additional polypoid lesion pr eviously described along the midline vallecula not visualized today. Mild mucosal nodularity involvin g the vallecula. Piriform sinuses are normal. Normal glottis and subglottic airway. Mild spondylitic changes cervical spine. Disc space narrowing worse at C5-C6. No cervical lymphadenopathy CT/CT neck w con* [id number] IMPRESSION: 1. Previously described nodular lesion measuring 7 mm along the epiglottis is unchanged. This is indeterminant and recommend direct visualization. Previously described polypoid nodule along the vallecula anteriorly has resolved. Mild mu cosal nodularity in the anterior vallecula similar to previous. 2. Otherwise no evidence of supraglottic or glottic mass. 3. No cervical lymphadenopathy. 4. RIGHT maxillary and sphenoid sinusitis. 5. Prior postoperative changes LEFT mastoidectomy with cochlear implant. 6. Opacification RIGHT mastoid air cells and RIGHT middle ear.
[2022-07-16] MEDS: iohexol 350 mg/mL 100 mL Btl IV (08:55)
== END 2022-07-16 08:24 | disposition home or self-care (01) ==
LOC: RAD 08:24
PROVIDERS: PCP Family Medicine; Visit Provider Specialist
DX: D10.7 Benign neoplasm of hypopharynx (principal)
CPT/HCPCS: 70491

== ENCOUNTER 2022-08-20 13:10 | Oncology outpatient (recurring) (ONCR) | payer MEDICARE, OTHER, SELFPAY ==
[2022-08-20 13:59] LABS: Basophils % 0.3 %; Eosinophils % 0.1 %; Hematocrit 40.1 % (42.0-52.0); Hemoglobin 13.3 g/dL (11.7-16.6); Lymphocytes # 0.8 10^3/uL (0.8-4.8); Lymphocytes % 7.7 %; Mean Corpuscular HGB Conc 33.2 g/dL (30.0-36.0); Mean Corpuscular Hemoglobin 31.4 pg (28.0-34.0); Mean Corpuscular Volume 94.8 fl (80-94); Mean Platelet Volume 10.1 fL (7.4-10.4); Monocytes # 0.8 10^3/uL (0.2-0.9); Monocytes % 7.9 %; Neutrophils # 8.32 10^3/uL (1.8-7.7); Neutrophils % 83.4 %; Nucleated Red Blood Cells % 0 %; Platelet Count 243 10^3/cmm (130-400); Red Blood Count 4.23 10^6/uL (4.1-5.3); Red Cell Distribution Width 13.5 % (12.1-15.1)
[2022-08-20 14:31] LABS: Alanine Aminotransferase 17 U/L (0-41); Albumin Level 3.7 g/dL (3.5-5.2); Alkaline Phosphatase 88 U/L (40-130); Anion Gap 10.7 (5-19); Aspartate Amino Transferase 13 U/L (0-40); Blood Urea Nitrogen 21 mg/dL (8-23); Calcium 9.6 mg/dL (8.5-10.5); Carbon Dioxide 29 mmol/L (22-29); Chloride 98 mmol/L (98-107); Glucose 218 mg/dL (65-115); Osmolality Calculated 286 mOsm/kg (285-295); Potassium 4.7 mmol/L (3.5-5.1); Sodium 133 mmol/L (136-145); Total Bilirubin 0.8 mg/dL (0.15-1.2); Total Protein 6.7 g/dL (6.6-8.7)
[2022-08-20 14:33] LABS: Prostate Specific Antigen < 0.014 ng/mL (0-4)
[2022-08-21 08:14] LABS: Testosterone Total < 2.5 ng/dL (193-740)
== END 2022-08-27 23:59 | disposition home or self-care (01) ==
LOC: ONCMED 13:13
PROVIDERS: PCP Family Medicine; Visit Provider Internal Medicine Medical Oncology
DX: Z08 Encounter for follow-up examination after completed treatment for malignant neoplasm (principal); Z85.46 Personal history of malignant neoplasm of prostate; Z92.21 Personal history of antineoplastic chemotherapy; Z92.3 Personal history of irradiation; Z87.891 Personal history of nicotine dependence
CPT/HCPCS: 36415; 80053; 84153; 84403; 85025; 99213; 99214

== ENCOUNTER → 2022-08-23 12:50 | Outpatient (BNVA) | payer MEDICARE, OTHER, SELFPAY | PROVIDERS: PCP Family Medicine; Visit Provider Urology | DX: N35.913 Unspecified membranous urethral stricture, male (principal); R33.9 Retention of urine, unspecified | CPT/HCPCS: 99213 ==

== ENCOUNTER 2022-10-28 06:00 | Outpatient (RCR) | payer MEDICARE, OTHER, SELFPAY | END 2022-11-19 23:59 | disposition home or self-care (01) | LOC: SST 06:00 | PROVIDERS: PCP Family Medicine; Visit Provider Otolaryngology | DX: R13.13 Dysphagia, pharyngeal phase (principal) | CPT/HCPCS: 92526; 92610 ==

== ENCOUNTER 2024-05-30 04:53 | Emergency (ER) | payer MEDICARE, OTHER, SELFPAY ==
[2024-05-30] VITALS (8 sets, daily range): BP systolic 95–137; BP diastolic 68–81; PULSE 60–77; RESP 18; TEMP 36.6; O2SAT 93–96; BMI 26.2
--- NOTE | 2024-05-30 05:03 | XRR_ITS ---
PROCEDURE INFORMATION: Exam: XR Chest Exam date and time: 05/30/2024 5:06 AM Age: 89 years old Clinical indication: Chest pressure; Patient HX: C/O chest pain TECHNIQUE: Imaging protocol: Radiologic exam of the chest. Views: 1 view. COMPARISON: CR XR chest 2V* [id number] 03/26/2022 11:17 AM FINDINGS: Lungs: Unremarkable. No consolidation. Pleural spaces: Unremarkable. No pleural effusion. No pneumothorax. Heart/Mediastinum: The heart is enlarged. There is calcified plaque involving the aorta. There is a large hiatal hernia. Bones/joints: Unremarkable. XR/XR chest 1V portable [id number] IMPRESSION: 1. Cardiomegaly. 2. Large hiatal hernia.
--- NOTE | 2024-05-30 05:04 | ECG_ITS ---
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 Measurements Intervals [place] Rate: 76 P: 75 VA: 184 QRS: -39 QRSD: 122 T: 80 QT: 437 QTc: 492 Interpretive Statements SINUS RHYTHM LEFT AXIS DEVIATION [QRS AXIS < -30] POSSIBLE RIGHT VENTRICULAR CONDUCTION DELAY [RSR (QR) IN V1/V2] POSSIBLE LEFT VENTRICULAR HYPERTROPHY [VOLTAGE CRITERIA PLUS LAE OR QRS WIDENING] POSSIBLE ANTEROSEPTAL MYOCARDIAL INFARCTION , PROBABLY OLD [30 ms Q WAVE IN V1-V4] Compared to ECG 01/19/2022 08:36:37 No significant changes Electronically Signed On 05-30-2024 9:04:38 CDT by Tom Johnson M.D. [email or web address]
[2024-05-30 05:28] LABS: Basophils # 0.1 10^3/uL (0.0-0.1); Basophils % 0.8 %; Eosinophils # 0.2 10^3/uL (0.0-0.8); Eosinophils % 2.8 %; Hematocrit 34.7 % (37-53); Lymphocytes # 0.7 10^3/uL (0.8-4.8); Lymphocytes % 11.7 %; Mean Corpuscular Hemoglobin 29.7 pg (27-33); Mean Corpuscular Volume 92.8 fl (82-101); Mean Platelet Volume 9.6 fL (7.4-10.4); Monocytes # 1.1 10^3/uL (0.2-0.9); Monocytes % 17.7 %; Neutrophils # 4.04 10^3/uL (1.8-7.7); Neutrophils % 66.7 %; Nucleated Red Blood Cells % 0 %; Platelet Count 194 10^3/cmm (157-399); Red Blood Count 3.74 10^6/uL (3.85-5.65); Red Cell Distribution Width 14.5 % (12.1-15.1); White Blood Count 6.06 10^3/uL (3.29-11.43)
[2024-05-30] MEDS: aspirin 81 mg Chew Tablet 324 MG PO (05:29)
[2024-05-30 05:45] LABS: Troponin(5th) Baseline 15 ng/L (0-15)
[2024-05-30 05:50] LABS: Alanine Aminotransferase 11 U/L (0-41); Albumin Level 3.6 g/dL (3.5-5.2); Alkaline Phosphatase 96 U/L (40-130); Aspartate Amino Transferase 14 U/L (0-40); Blood Urea Nitrogen 22 mg/dL (8-23); Calcium 8.6 mg/dL (8.5-10.5); Carbon Dioxide 25 mmol/L (22-29); Chloride 106 mmol/L (98-107); Creatinine Clr Calc Pharmacy 80.6515; Globulin 2.5 g/dL (1.3-4.6); Glucose 187 mg/dL (65-115); Lipase 18 U/L (13-60); Osmolality Calculated 300 mOsm/kg (285-295); Sodium 141 mmol/L (136-145); Total Bilirubin 0.4 mg/dL (0.15-1.2); Total Protein 6.1 g/dL (6.6-8.7)
--- NOTE | 2024-05-30 06:11 | ED_ITS ---
HPI - Chest Pain 2 General: Chief Complaint: Chest Pain Stated Complaint: Chest Pain Time Seen by Provider: 05/30/24 05:02 History of Present Illness: Patient is a 89-year-old gentleman with history of diabetes and hypertension who presents to the ER for evaluation of chest pain that he states woke him up from sleep about 2 hours before arrival. He states he was sleeping and woke up with substernal chest pain that felt like pressure. He denies any known shortness of breath but states he has oxygen through his CPAP at night. He denies any radiation of pain to his sides or back. No nausea vomiting or diaphoresis. No exacerbating or alleviating factors. He states his symptoms subsided after about an hour and 1/2 to 2 hours and denies any pain or pressure or discomfort currently. Associated symptoms: Deny abdominal pain, diaphoresis, dyspnea, fever(s), nausea or vomiting Review of Systems 2 Const: Denies: fever(s), chills or diaphoresis Card: Reports: chest pain Resp: Denies: dyspnea GI: Denies: abdominal pain, nausea or vomiting Skin/Breast: Denies: rash Neuro: Denies: headache(s) PFSH ED 2 PFSH: Medical History (Updated 08/24/22 @ 09:49 by Omar Gonsalves MD) Prostate cancer History of benign prostatic hyperplasia Diabetes 1.5, managed as type 2 History of atrial flutter Hiatal hernia with GERD Degenerative arthritis Cochlear hearing loss Urinary retention Surgical History (Updated 08/24/22 @ 09:49 by Omar Gonsalves MD) H/O circumcision History of cochlear implant History of rhinoplasty Hx of vasectomy History of tonsillectomy and adenoidectomy History of amputation of finger of right hand Hx of bilateral cataract extraction Hx of umbilical hernia repair S/P knee replacement Family History Family/Other Diabetes Dementia Cancer Breast cancer Mother , at age 37 Tuberculosis Lung disease Tuberculosis Father , at age 79 CAD (coronary artery disease) Denies family history of Clotting disorder Hyperlipidemia Psychiatric illness Chronic kidney disease (CKD) Suicide Anesthesia complication Bleeding disorder Hypertension Stroke Social History Smoking and tobacco/nicotine status: former use of tobacco/nicotine (Smoked a pipe for 40 years) Alcohol intake: current Alcohol intake frequency: few times a month Substance/Drug Use: unknown Adopted: No Caregiver/support person: No Lives independently: No Household members: spouse Marital status: Current occupational status: retired Current gender identity: Male Physical Exam 2 Const: COMMON NORMALS: no acute distress, average body habitus, alert and well nourished GENERAL APPEARANCE: cooperative ORIENTATION/CONSCIOUSNESS: Yes awake OTHER: Nontoxic 89-year-old male in no acute distress HENMT: COMMON NORMALS: normocephalic and atraumatic HEAD & SCALP: n ormocephalic and atraumatic Eye: COMMON NORMALS: conjunctivae normal CONJUNCTIVA: Yes conjunctivae normal Neck/C-Spine: GENERAL: Yes normal visual inspection Resp: COMMON NORMALS: normal respiratory effort, No retractions and No use of accessory muscles Cardio: COMMON NORMALS: regular rhythm and Peripheral pulses 2+ throughout RHYTHM: regular rhythm PERIPHERAL PULSES: Peripheral pulses 2+ throughout GI: COMMON NORMALS: Soft to palpation and non-tender PALPATION: Yes Soft to palpation Extremity: COMMON NORMALS: full ROM and no pedal edema Neuro: COMMON NORMALS: no focal motor deficits SENSORIUM/ORIENTATION: Yes alert Skin: COMMON NORMALS: no rashes or lesions noted GENERAL SKIN EXAM: no rashes or lesions noted Course 2 Vital Signs: Vital signs: Vital Signs Temperature 98 F 05/30/24 04:54 Pulse Rate 75 05/30/24 04:54 Respiratory Rate 18 05/30/24 04:54 Blood Pressure 137/81 05/30/24 04:54 Pulse Oximetry 93 05/30/24 04:54 MDM - Chest Pain Medical Decision Making Patient is a 89-year-old gentleman who presents with substernal chest pain lasting about 2 hours and is resolved by time he arrived here. EKG is sinus rhythm with a rate of [address] elevations or depressions. Basic labs including CBC, CMP troponin and delta troponin have been ordered as well as a chest x-ray. Patient will be turned over to Dr. Altman pending labs and reevaluation. Lab Data I reviewed the patient's lab results. 05/30/24 05:21 05/30/24 05:21 Laboratory Results WBC 6.06 10^3/uL (3.29-11.43) 05/30/24 05:21 RBC 3.74 10^6/uL (3.85-5.65) L 05/30/24 05:21 Hgb 11.10 g/dL (11.27-16.99) L 05/30/24 05:21 Hct 34.7 % (37-53) L 05/30/24 05:21 MCV 92.8 fl (82-101) 05/30/24 05:21 MCH 29.7 pg (27-33) 05/30/24 05:21 MCHC 32.0 g/dL (30-55) 05/30/24 05:21 RDW 14.5 % (12.1-15.1) 05/30/24 05:21 Plt Count 194 10^3/cmm (157-399) 05/30/24 05:21 MPV 9.6 fL (7.4-10.4) 05/30/24 05:21 Neut % (Auto) 66.7 % 05/30/24 05:21 Lymph % (Auto) 11.7 % 05/30/24 05:21 [place] % (Auto) 17.7 % 05/30/24 05:21 Eos % (Auto) 2.8 % 05/30/24 05:21 Baso % (Auto) 0.8 % 05/30/24 05:21 Neut # (Auto) 4.04 10^3/uL (1.8-7.7) 05/30/24 05:21 Lymph # (Auto) 0.7 10^3/uL (0.8-4.8) L 05/30/24 05:21 [place] # (Auto) 1.1 10^3/uL (0.2-0.9) H 05/30/24 05:21 Eos # (Auto) 0.2 10^3/uL (0.0-0.8) 05/30/24 05:21 Baso # (Auto) 0.1 10^3/uL (0.0-0.1) 05/30/24 05:21 Nucleated RBC % (auto) 0 % 05/30/24 05:21 Nucleated RBCs # 0.0 /100WBC 05/30/24 05:21 Sodium 141 mmol/L (136-145) 05/30/24 05:21 Potassium 4.0 mmol/L (3.5-5.1) 05/30/24 05:21 Chloride 106 mmol/L (98-107) 05/30/24 05:21 Carbon Dioxide 25 mmol/L (22-29) 05/30/24 05:21 Anion Gap 14.0 (5-19) 05/30/24 05:21 BUN 22 mg/dL (8-23) 05/30/24 05:21 Creatinine 0.8 mg/dL (0.7-1.2) 05/30/24 05:21 GFR Calculation Not Reportable 05/30/24 05:21 Glucose 187 mg/dL (65-115) H 05/30/24 05:21 Calculated Osmolality 300 mOsm/kg (285-295) H 05/30/24 05:21 Calcium 8.6 mg/dL (8.5-10.5) 05/30/24 05:21 Total Bilirubin 0.4 mg/dL (0.15-1.2) 05/30/24 05:21 AST 14 U/L (0-40) 05/30/24 05:21 ALT 11 U/L (0-41) 05/30/24 05:21 Alkaline Phosphatase 96 U/L (40-130) 05/30/24 05:21 Troponin T Baseline 15 ng/L (0-15) 05/30/24 05:21 Total Protein 6.1 g/dL (6.6-8.7) L 05/30/24 05:21 Albumin 3.6 g/dL (3.5-5.2) 05/30/24 05:21 Globulin 2.5 g/dL (1.3-4.6) 05/30/24 05:21 Lipase 18 U/L (13-60) 05/30/24 05:21 XR interpretation done by ED provider, pending radiology final review ED provider radiology interpretation(s): Large hiatal hernia with cardiomegaly noted. No obvious pneumonia or infiltrate. Discharge Plan Discharge Condition: Stable Prescriptions: No Action lidocaine HCl 2 % jelly 20 ml topical ONCE Qty: 1 0RF gentamicin 40 mg/mL solution 80 mg IM ONCE Qty: 2 0RF aspirin [Adult Low Dose Aspirin] 81 mg tablet,delayed release (DR/EC) 81 mg PO DAILY azelastine 137 mcg (0.1 %) aerosol,spray 1 spray intranasal BID PRN (Reason: Allergy Symptoms) Rx Instructions: administer into each nostril levalbuterol tartrate [Xopenex HFA] 45 mcg/actuation HFA aerosol inhaler 2 inh inhalation Q6H PRN (Reason: Shortness Of Breath) Refresh Liquigel 1 % drops, liquid gel 2 drp ophthalmic (eye) BID clobetasol 0.05 % ointment 1 applic topical BID PRN (Reason: Rash) atenolol 25 mg tablet 25 mg PO DAILY sulfamethoxazole-trimethoprim 800-160 mg tablet 1 tab PO BID Qty: 30 6RF metformin 500 mg tablet 500 mg PO DAILY clindamycin HCl [Cleocin HCl] 300 mg capsule 300 mg PO QID levofloxacin 500 mg tablet 500 mg PO DAILY glucosamine sulfate [Glucosamine] 500 mg Tablet 500 mg PO DAILY Rx Instructions: administer with a meal vitamin [id number] acid 0.5-1 mg Tablet 1 tab PO DAILY ezetimibe-simvastatin [Vytorin 10-20] 10-20 mg Tablet 1 tab PO QPM Men's Daily Formula 400-20-300 mcg Tablet 1 tab PO DAILY esomeprazole magnesium 40 mg capsule,delayed release(DR/EC) 40 mg PO DAILY PRN (Reason: Acid Reflux) sucralfate [Carafate] 1 gram tablet 1 g PO BID PRN (Reason: upper abdominal pain) Qty: 20 0RF Referrals: Tamiko Louis DO [Primary Care Provider] - Coding Level of Care Code ED [employer] for Pierre Greer
--- NOTE | 2024-05-30 06:33 | CTR_ITS ---
PROCEDURE INFORMATION: Exam: CTA Chest With Contrast Exam date and time: 05/30/2024 6:52 AM Age: 89 years old Clinical indication: Chest pressure; Patient HX: Widened mediastinum on cxr. Patient C/O chest pain and hypotensive. TECHNIQUE: Imaging protocol: Computed tomographic angiography of the chest with contrast. Exam focused on the arteries. 3D rendering (Not supervised by radiologist): MIP and/or 3D reconstructed images were created by the technologist. Radiation optimization: All CT scans at this facility use at least one of these dose optimization techniques: automated exposure control; mA and/or kV adjustment per patient size (includes targeted exams where dose is matched to clinical indication); or iterative reconstruction. Contrast material: OMNI 350; Contrast volume: 100 ml; Contrast route: INTRAVENOUS (IV); COMPARISON: CR (CHEST, ) 05/30/2024 5:06 AM RADIATION DOSE METRICS: Total DLP (mGy-cm): 747.97 FINDINGS: Pulmonary arteries: Normal. No pulmonary emboli. Aorta: The ascending aorta is dilated measuring a proximally 5 cm in size. The aortic arch and descending thoracic aorta are normal in caliber. There is no evidence of a dissection. There is calcified plaque involving the aorta and coronary vessels. Lungs: There is linear scarring and/or atelectasis at the lung bases and lingula. No consolidated infiltrates are appreciated. No lung nodules or masses are identified. Pleural spaces: Unremarkable. No pneumothorax. No pleural effusion. Heart: The heart is slightly enlarged. There is a small amount of pericardial fluid. Lymph nodes: Unremarkable. No enlarged lymph nodes. Diaphragm: There is a large hiatal hernia. Liver: There are benign-appearing hepatic cysts. Bones/joints: Unremarkable. No acute fracture. Soft tissues: Unremarkable. CT/CT angio chest [id number] IMPRESSION: 1. 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 2. Atherosclerosis. No dissection identified. 3. Large hiatal hernia. 4. Atelectasis and/or scarring at the lung bases and lingula.
[2024-05-30] MEDS: iohexol 350 mg/mL 500 mL Btl (per mL) IV (06:57)
[2024-05-30 07:45] LABS: Troponin 5 2HR 12.52 ng/L (0-15)
[2024-05-30 07:49] LABS: Troponin 5 2HR Delta -2.48 ABS# (0-10)
--- NOTE | 2024-05-30 09:12 | PC.NURSE ---
upon pt d/c, pt requested to have prescription sent to [facility] in [place]. This nurse called in prescription to this pharmacy.
== END 2024-05-30 09:11 | disposition home or self-care (01) ==
PROVIDERS: Student in an Organized Health Care Education/Training Program; Emergency Provider Family Medicine; PCP Family Medicine
DX: R07.9 Chest pain, unspecified (principal); K44.9 Diaphragmatic hernia without obstruction or gangrene; Z79.82 Long term (current) use of aspirin; Z79.4 Long term (current) use of insulin; Z87.891 Personal history of nicotine dependence; Z85.46 Personal history of malignant neoplasm of prostate; E13.9 Other specified diabetes mellitus without complications; I71.21 Aneurysm of the ascending aorta, without rupture
CPT/HCPCS: 36415; 71045; 71275; 80053; 83690; 84484; 85025; 93005; 99285; Q9967

== ENCOUNTER 2024-07-09 12:56 | Inpatient (IN) | payer MEDICARE, OTHER, SELFPAY ==
[2024-07-09] VITALS (15 sets, daily range): BP systolic 131–218; BP diastolic 49–108; PULSE 54–93; RESP 16–21; TEMP 36.4–36.8; O2SAT 94–97
--- NOTE | 2024-07-09 13:42 | CTR_ITS ---
PROCEDURE INFORMATION: Exam: CT Head Without Contrast Exam date and time: 07/09/2024 2:29 PM Age: 89 years old Clinical indication: Pain; Headache; Prior surgery; Surgery date: 6+ months; Surgery type: Cochlear implant; Additional info: Closed head injury TECHNIQUE: Imaging protocol: Computed tomography of the head without contrast. Radiation optimization: All CT scans at this facility use at least one of these dose optimization techniques: automated exposure control; mA and/or kV adjustment per patient size (includes targeted exams where dose is matched to clinical indication); or iterative reconstruction. COMPARISON: CT head wo/w con [id number] 06/06/2022 4:00 PM RADIATION DOSE METRICS: Total DLP (mGy-cm): 1097 FINDINGS: Brain: No acute infarct, hemorrhage, mass, or mass effect. 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 Mild chronic white matter microvascular ischemic change. Cerebral ventricles: Normal ventricles. No appreciable extra-axial fluid. Paranasal sinuses: Robust mucosal thickening in the bilateral frontal (left greater than right), bilateral ethmoid, bilateral sphenoid, and bilateral maxillary sinuses (left greater than right). Mastoid air cells: Mucosal thickening in the bilateral mastoid air cells. Prior left mastoidectomy with left cochlear implant. Orbital cavities: Orbits are unremarkable. Sella is unremarkable. Bones: Calvarium and scalp are unremarkable. Soft tissues: See Bones finding. CT/CT head wo con* [id number] IMPRESSION: 1. No acute intracranial abnormality. 2. Bilateral paranasal sinus disease. Bilateral mastoiditis.
--- NOTE | 2024-07-09 13:42 | XRR_ITS ---
PROCEDURE INFORMATION: Exam: XR Chest Exam date and time: 07/09/2024 2:02 PM Age: 89 years old Clinical indication: Cough and dyspnea; Patient HX: States that he got up at 0230 this am to go to the bathroom and was too dizzy to stand. Then again this morning at 0800. HX of prostate cancer; Additional info: Dyspnea/cough TECHNIQUE: Imaging protocol: Radiologic exam of the chest. Views: 1 view. COMPARISON: CT angio chest [id number] 05/30/2024 6:52 AM FINDINGS: Lungs: The lungs are clear. Calcified granuloma right upper lobe. Pleural spaces: No pneumothorax or pleural effusion. Heart/Mediastinum: Normal heart size.. Moderate hiatal hernia. Bones/joints: No acute osseous or soft tissue abnormality. XR/XR chest 1V portable [id number] IMPRESSION: 1. The lungs are clear. 2. Hiatal hernia.
[2024-07-09 14:12] LABS: Basophils # 0.1 10^3/uL (0.0-0.1); Basophils % 0.7 %; Eosinophils # 0.1 10^3/uL (0.0-0.8); Eosinophils % 1.5 %; Hematocrit 37.7 % (37-53); Lymphocytes % 15.2 %; Mean Corpuscular HGB Conc 32.6 g/dL (30-55); Mean Corpuscular Hemoglobin 29.8 pg (27-33); Mean Corpuscular Volume 91.3 fl (82-101); Mean Platelet Volume 9.7 fL (7.4-10.4); Monocytes # 0.7 10^3/uL (0.2-0.9); Monocytes % 10.9 %; Neutrophils # 4.82 10^3/uL (1.8-7.7); Neutrophils % 71.4 %; Nucleated Red Blood Cells % 0 %; Platelet Count 233 10^3/cmm (157-399); Red Blood Count 4.13 10^6/uL (3.85-5.65); Red Cell Distribution Width 14.1 % (12.1-15.1); White Blood Count 6.76 10^3/uL (3.29-11.43)
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
[2024-07-09 14:36] LABS: Alanine Aminotransferase 11 U/L (0-41); Albumin Level 3.9 g/dL (3.5-5.2); Alkaline Phosphatase 97 U/L (40-130); Anion Gap 14.2 (5-19); Aspartate Amino Transferase 17 U/L (0-40); Blood Urea Nitrogen 17 mg/dL (8-23); Carbon Dioxide 27 mmol/L (22-29); Chloride 102 mmol/L (98-107); Globulin 3.2 g/dL (1.3-4.6); Glucose 152 mg/dL (65-115); Osmolality Calculated 293 mOsm/kg (285-295); Potassium 4.2 mmol/L (3.5-5.1); Sodium 139 mmol/L (136-145); Total Bilirubin 0.9 mg/dL (0.15-1.2); Total Protein 7.1 g/dL (6.6-8.7)
[2024-07-09 14:37] LABS: Creatinine Clr Calc Pharmacy 78.2418
--- NOTE | 2024-07-09 16:09 | CTR_ITS ---
PROCEDURE INFORMATION: Exam: CTA Head With Contrast, Arteriography Exam date and time: 07/09/2024 4:18 PM Age: 89 years old Clinical indication: Other: Posterior CVA TECHNIQUE: Imaging protocol: Computed tomographic angiography of the head with contrast. Exam focused on the arteries. 3D rendering (Not supervised by radiologist): MIP and/or 3D reconstructed images were created by the technologist. Radiation optimization: All CT scans at this facility use at least one of these dose optimization techniques: automated exposure control; mA and/or kV adjustment per patient size (includes targeted exams where dose is matched to clinical indication); or iterative reconstruction. Contrast material: OMNI 350; Contrast volume: 100 ml; Contrast route: INTRAVENOUS (IV); COMPARISON: CT head wo con* [id number] 07/09/2024 2:29 PM RADIATION DOSE METRICS: Total DLP (mGy-cm): 518 FINDINGS: ANTERIOR CIRCULATION: Right internal carotid artery: Intracranial segment is patent with no significant stenosis. No aneurysm. Right middle cerebral artery: No occlusion or significant stenosis. No aneurysm. Right anterior cerebral artery: No occlusion or significant stenosis. No aneurysm. Left internal carotid artery: Intracranial segment is patent with no significant stenosis. No aneurysm. Left middle cerebral artery: No occlusion or significant stenosis. No aneurysm. Left anterior cerebral artery: No occlusion or significant stenosis. No aneurysm. POSTERIOR CIRCULATION: Right vertebral artery: No occlusion or significant stenosis. No aneurysm. Left vertebral artery: No occlusion or significant stenosis. No aneurysm. Basilar artery: No occlusion or significant stenosis. No aneurysm. Right posterior cerebral artery: No occlusion or significant stenosis. No aneurysm. Left posterior cerebral artery: No occlusion or significant stenosis. No aneurysm. Brain: No definite mass, mass effect, or midline shift. Cerebral ventricles: No ventriculomegaly. Mastoid air cells: Left mastoidectomy changes. Left cochlear implant noted. Bones/joints: Opacified sphenoid, ethmoid, left frontal, and left maxillary sinuses. Mucosal thickening of the right frontal sinus. Soft tissues: Unremarkable. PROCEDURE INFORMATION: Exam: CTA Neck With Contrast Exam date and time: 07/09/2024 4:18 PM Age: 89 years old Clinical indication: Other: Posterior CVA TECHNIQUE: Imaging protocol: Computed tomographic angiography of the neck with contrast. Exam focused on the cervical segments of the vasculature. 3D rendering (Not supervised by radiologist): MIP and/or 3D reconstructed images were created by the technologist. Radiation optimization: All CT scans at this facility use at least one of these dose optimization techniques: automated exposure control; mA and/or kV adjustment per patient size (includes targeted exams where dose is matched to clinical indication); or iterative reconstruction. Contrast material: OMNI 350; Contrast volume: 100 ml; Contrast route: INTRAVENOUS (IV); COMPARISON: CT neck w con* [id number] 07/16/2022 8:45 AM RADIATION DOSE METRICS: Total DLP (mGy-cm): 518 FINDINGS: Right common carotid artery: No stenosis. No dissection or occlusion. Right internal carotid artery: No stenosis of the extracranial segment. No dissection or occlusion. Right external carotid artery: No occlusion or stenosis of the origin. Left common carotid artery: No stenosis. No dissection or occlusion. Left internal carotid artery: No stenosis of the extracranial segment. No dissection or occlusion. Left external carotid artery: No occlusion or stenosis of the origin. Right vertebral artery: No stenosis. No dissection or occlusion. Left vertebral artery: No stenosis. No dissection or occlusion. Soft tissues: Normal. No significant soft tissue swelling. Bones/joints: No acute fracture. CT/CT angio headneck* [id number] IMPRESSION: No large vessel stenosis or occlusion. IMPRESSION: No stenosis or occlusion. REFERENCES: NASCET CRITERIA. The degree of stenosis in the cervical segment of the internal carotid artery is based on NASCET criteria. Normal is no stenosis. Mild is less than 50% stenosis. Moderate is 50-69% stenosis. Severe is 70% to 99% stenosis. Total occlusion is no detectable patent lumen.
--- NOTE | 2024-07-09 16:09 | ECG_ITS ---
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: : [phone] Requested By: Gregory Warner Order Number: [id number] Reading MD: ISIDRO SILVA Measurements Intervals [place] Rate: 53 P: 4 MS: 171 QRS: -8 QRSD: 114 T: 32 QT: 513 QTc: 482 Interpretive Statements SINUS BRADYCARDIA VOLTAGE CRITERIA FOR LVH [MEETS CRITERIA IN ONE OF: R(aVL), S(V1), R(V5), R(V5/V6)+S(V1)] POSSIBLE SEPTAL MYOCARDIAL INFARCTION , PROBABLY OLD [30 ms Q WAVE IN V1/V2] Compared to ECG 05/30/2024 04:57:38 Sinus rhythm no longer present Left-axis deviation no longer present Myocardial infarct finding still present Electronically Signed On 07-09-2024 19:52:49 CDT by ISIDRO SILVA [email or web address]
[2024-07-09] MEDS: meclizine 25 mg tablet PO (16:13)
[2024-07-09] MEDS: iohexol 350 mg/mL 500 mL Btl (per mL) IV (16:33)
--- NOTE | 2024-07-09 17:43 | P.HP_ITS ---
Providers/Chief Complaint 2 Admitting Physician: Joel Bartlett Primary Care Provider: Tamiko Louis DO Chief Complaint: dizzy, nausea History of Present Illness Very pleasant 89-year-old gentleman developed dizziness overnight around 2 AM which persisted again later in the morning when he was waking up. Making difficult for him to ambulate, feeling like he is continuously rotating horizontally. He denies any changes in his hearing, he does have a cochlear implant. Denies any ear pain or discharge. Reports history of sinusitis for which she was following with Dr. Lal which she states has been under control. Reports some mild chronic tinnitus in the right ear which has not changed. He does report having a fall on Saturday after he bent down to straighten out a kink in a garden hose, lost his balance and continue to fall forward, scraped his posterior right shoulder on the siding, and does not remember, but possibly hit his head. He otherwise denies fever or chills. No headache. Had some nausea this morning, no vomiting. In ER blood pressure is elevated. He reports blood pressure usually runs closer to 120s-130s. His reports history of possibly having heart flutter for which he is possibly on aspirin 81 mg and atenolol although they are not sure if he was formally diagnosed with atrial flutter. He does have history of hypertension, hypercholesterolemia. He is a former pipe smoker. Review of Systems 2 Const: Denies: fever(s), chills, body aches or malaise ENMT: Denies: throat pain Card: Denies: chest pain, edema, pre-syncope or dyspnea on exertion Resp: Denies: dyspnea, productive cough, change in phlegm color or hemoptysis GI: Reports: hematochezia (Occasional streaks); Denies: abdominal pain, nausea, vomiting, diarrhea, constipation or melena : Denies: flank pain, difficulty urinating, urinary frequency or hematuria Musc: Denies: back pain, joint swelling or joint redness Skin/Breast: Denies: rash or new lesions Neuro: Reports: dizziness; Denies: headache(s), numbness in extremities, weakness in extremities, confusion or seizure-like activity Medications/Allergies Home Medications Medication Instructions Recorded Confirmed Last Taken Type ezetimibe 10 mg-simvastatin 20 mg 1 tab PO QPM 10/30/19 08/23/22 10/29/19 History tablet (Vytorin) glucosamine sulfate 500 mg tablet 500 mg PO DAILY 10/30/19 08/23/22 10/30/19 History (Glucosamine) hwfdxgrw-lluqogvt-yired acid 400 1 tab PO DAILY 10/30/19 08/23/22 10/30/19 History mcg-vit K 20 mcg-lycop 300 mcg tablet (Men's Daily Formula) vitamin B12 0.5 mg-folic acid 1 mg 1 tab PO DAILY 10/30/19 08/23/22 10/30/19 History tablet aspirin 81 mg tablet,delayed 81 mg PO DAILY 01/28/20 08/23/22 Unknown History release (Adult Low Dose Aspirin) atenolol 25 mg tablet 25 mg PO DAILY 12/22/20 08/23/22 Unknown History azelastine 137 mcg (0.1 %) nasal 1 spray intranasal BID PRN Allergy 06/13/21 08/23/22 Unknown History spray Symptoms carboxymethylcellulose sodium 1 % 2 drp ophthalmic (eye) BID 06/13/21 08/23/22 Unknown History eye liquid gel drops (Refresh Liquigel) levalbuterol tartrate 45 2 inh inhalation Q6H PRN Shortness 06/13/21 08/23/22 Unknown History mcg/actuation aerosol inhaler Of Breath (Xopenex HFA) sucralfate 1 gram tablet (Carafate) 1 g PO BID PRN upper abdominal 01/19/22 08/23/22 Unknown Rx pain #20 tabs clobetasol 0.05 % topical ointment 1 applic topical BID PRN Rash 03/08/22 08/23/22 Unknown History esomeprazole magnesium 40 mg 40 mg PO DAILY PRN Acid Reflux 03/08/22 08/23/22 Unknown History capsule,delayed release metformin 500 mg tablet 500 mg PO DAILY 03/08/22 08/23/22 Unknown History clindamycin HCl 300 mg capsule 300 mg PO QID 08/20/22 08/23/22 Unknown History (Cleocin HCl) levofloxacin 500 mg tablet 500 mg PO DAILY 08/20/22 08/23/22 Unknown History sulfamethoxazole 800 1 tab PO BID #30 tabs 08/23/22 08/23/22 Unknown Rx mg-trimethoprim 160 mg tablet Allergies Allergy/AdvReac Type Severity Reaction Status Date / Time adhesive Allergy Intermediate ALGY-Rash Unverified 07/09/24 18:39 ibuprofen Allergy ALGY-Rash Verified 07/09/24 13:24 PFSH Acute 2 PFSH: Medical History Prostate cancer History of benign prostatic hyperplasia Diabetes 1.5, managed as type 2 History of atrial flutter Hiatal hernia with GERD Degenerative arthritis Cochlear hearing loss Urinary retention Surgical History H/O circumcision History of cochlear implant History of rhinoplasty Hx of vasectomy History of tonsillectomy and adenoidectomy History of amputation of finger of right hand Hx of bilateral cataract extraction Hx of umbilical hernia repair S/P knee replacement Family History Family/Other Diabetes Dementia Cancer Breast cancer Mother , at age 37 Tuberculosis Lung disease Tuberculosis Father , at age 79 CAD (coronary artery disease) Denies family history of Clotting disorder Hyperlipidemia Psychiatric illness Chronic kidney disease (CKD) Suicide Anesthesia complication Bleeding disorder Hypertension Stroke Social History Smoking and tobacco/nicotine status: former use of tobacco/nicotine (Smoked a pipe for 40 years) Alcohol intake: current Alcohol intake frequency: few times a month Substance/Drug Use: unknown Adopted: No Caregiver/support person: No Lives independently: No Household members: spouse Marital status: Current occupational status: retired Current gender identity: Male Vitals/I&O/Wt Last Vital Signs Temp 97.8 F 07/09/24 13:18 Pulse 56 L 07/09/24 16:55 Resp 21 H 07/09/24 15:27 BP 168/104 07/09/24 16:55 Pulse Ox 96 07/09/24 16:55 O2 Del Method Room Air 07/09/24 13:51 Weight last 48 hrs Weight 90.718 kg Physical Exam 2 Narrative: Sitting up in bed, accompanied by his family. Const: COMMON NORMALS: patient oriented x3 and alert GENERAL APPEARANCE: c ooperative ORIENTATION/CONSCIOUSNESS: Yes awake HENMT: COMMON NORMALS: oropharynx normal Neck/C-Spine: COMMON NORMALS: no JVD Resp: COMMON NORMALS: normal respiratory effort and clear to auscultation bilaterally AUSCULTATION: clear to auscultation bilaterally Cardio: COMMON NORMALS: no JVD, regular rhythm, S1 normal heart sound present, S2 normal heart sound present and No murmurs present (Cardio) RHYTHM: regular rhythm HEART SOUNDS: S1 normal heart sound present and S2 normal heart sound present GI: COMMON NORMALS: Normal to inspection, nondistended, normoactive bowel sounds present, Soft to palpation and non-tender PALPATION: Yes Soft to palpation Extremity: COMMON NORMALS: no joint enlargement and no pedal edema Neuro: COMMON NORMALS: patient oriented x3 and moves all extremities S ENSORIUM/ORIENTATION: Yes alert OTHER: She is awake and alert, not following directions. No aphasia, dysarthria. No difficulties with horizontal tracking, no difficulties with motor or sensation of any other extremities. Noted left beating nystagmus on left gaze, no nystagmus in the right gaze. Head impulse test, test of skew normal. I could not trigger nystagmus or vertigo on Lu[place]-Hallpike. Skin: COMMON NORMALS: no rashes or lesions noted NARRATIVE SKIN EXAM: Posterior left shoulder abrasion, with mild serous weeping of various size small ulcerations, area about 2 x 4 inches, surrounding erythema and rectangular shape of previous dressing with adhesive allergy. GENERAL SKIN EXAM: no rashes or lesions noted Data 07/09/24 13:58 07/09/24 13:58 Micro: Microbiology 07/09/24 13:58 Blood Culture - Preliminary Blood SPECIMEN COLLECTED 07/09/24 14:01 Blood Culture - Preliminary Blood SPECIMEN COLLECTED A&P Assessment and plan (1) Posterior circulation stroke: Suspected posterior circulation CVA with vertigo, reviewed vitals, CBC, CMP, CT head, head and neck CTA, chest x-ray, EKG, with sinus bradycardia interpretation, pending official read, ER note, discussed with ER provider. Cannot trigger vertigo or nystagmus on [place]pike. Although otherwise test of skew, head impulse appears unremarkable. Able to trigger nystagmus on left gaze, not on right gaze. He did have a fall on Saturday. Discussed with him and family risk of swelling, herniation with posterior circulation CVA. Avoid rapid blood pressure decreases. Gentle IV hydration. Monitor for risk of fluid overload with IV hydration, risk of severe hypertension. Monitor while in the hospital. Unable to undergo MRI due to cochlear implant. Appreciate neurology recommendation for repeat CT scan tomorrow, will obtain. In the meantime continue aspirin, statin, insulin sliding scale. Obtain A1c. Avoid NSAIDs. He is at risk of CVA secondary to atrial flutter, is only on aspirin 81 mg. Long-term if able to tolerate would benefit from anticoagulation, but does have risks of bleeding including intermittent hematochezia with history of colonic AVM, and currently vertigo with risk of falls. For now continue aspirin. We did discuss consideration of anticoagulation with him and family as well as the above risks. Additionally PT assessment, can attempt Luz Elena Hallpike again. May require rehabilitation due to severity of vertigo. Case management consultation. Echo bubble study. Monitor on telemetry. (2) Vertigo: As above. Fall precautions. (3) Shoulder abrasion: Continue wound care. With adhesive allergy minimal tape to hold gauze in place. Plan HTN continue atenolol HLD continue statin Atrial flutter: Discussed may benefit from anticoagulation for stroke risk prevention given multiple risk factors, elevated [id number] risk, however, also risk of bleeding with intermittent medic easier, blood streaked on stool, history of AVM, currently also additional risk of fall with vertigo. For now continue aspirin 81 mg. Continue atenolol. Diabetes: Hold metformin, sliding scale insulin, check POC glucose, consistent carbohydrate cardiac diet when restarted. Urinary retention, self caths 5 times a day: Not enough supplies to maintain home regimen. Ruiz placed. B12 deficiency: Check level Attestations 2 Medical Necessity Statement*: Admission of over 2 midnights anticipated for assessment of management of acute posterior circulation CVA Diagnoses Posterior circulation stroke I63.50 Vertigo R42 Shoulder abrasion S40.219A
--- NOTE | 2024-07-09 18:00 | PC.NURSE ---
report called to Regina on Med-Surg, no further questions. pt transported to [place] via wheelchair by equipment technician
[2024-07-09] MEDS: enoxaparin 40 mg/0.4 mL Syringe SUBCUT (18:27)
[2024-07-09] MEDS: sodium chloride 0.9% 1,000 ML 100 ML IV (18:27)
[2024-07-09] MEDS: aspirin 81 mg EC Tablet 162 MG PO (18:27)
--- NOTE | 2024-07-09 18:54 | USCV_ITS ---
Omar Daniel Age: 89 Gender: M : 1935 Exam Date: 07/09/2024 20:16 Ordering Phys: Joel Bartlett MD Technologist: JAZMIN [place] [facility] [place]ication: CVA, dizziness, ataxia. No history of cardiac intervention per patient. BUBBLE STUDY IS ORDERED. BP: 193 / 90 HR: 52 Rhythm: Sinus bradycardia Technical Quality: Adequate MEASUREMENTS (Male / Female) Normal Values 2D ECHO LV Diastolic Diameter PLAX 3.5 cm 4.2 - 5.9 / 3.9 - 5.3 cm IVS Diastolic Thickness 1.8 cm 0.6 - 1.0 / 0.6 - 0.9 cm IVS Systolic Thickness 2.4 cm LVPW Diastolic Thickness 1.3 cm 0.6 - 1.0 / 0.6 - 0.9 cm LVPW Systolic Thickness 1.6 cm LVOT Diameter 2.3 cm LV Ejection Fraction 2D Teich 55.4 % LV Ejection Fraction MOD 4C 45.5 % LV Ejection Fraction MOD 2C 68.9 % LV Ejection Fraction 2C AL 72.1 % LA Diameter 2.9 cm Aorta at Sinotubular Diameter 3.1 cm IVC Diameter 1.3 cm M-MODE LA Ao Ratio MM 1.4 AV Cusp Separation MM 2.2 cm DOPPLER AV Peak Velocity 127.0 cm/s LVOT Peak Velocity 79.0 cm/s AV Area Cont Eq vti 3.4 cm squared AV Area Cont Eq pk 2.5 cm squared MV Peak Velocity 119.0 cm/s MV Area PHT 1.8 cm squared Mitral E to A Ratio 0.8 TV Peak Velocity 250.0 cm/s TR Peak Velocity 258.0 cm/s TR Peak Gradient 26.6 mmHg TV Peak E Velocity 39.0 cm/s Right Atrial Pressure 3.0 mmHg Pulmonary Artery Systolic Pressu 29.6 mmHg PV Peak Velocity 136.0 cm/s FINDINGS Left Ventricle Normal left ventricular size with borderline ejection fraction of 50-55 %. Mild left ventricular hypertrophy. Relative hypokinesis of the basal and mid inferolateral and apical septal segments. Abnormal septal motion consistent with conduction abnormality. Grade I/IV diastolic dysfunction (abnormal relaxation filling pattern), normal to mildly elevated filling pressures. Right Ventricle The right ventricle is normal in size and function. Right Atrium The right atrium is normal in size. Left Atrium Mildly increased left atrial size. Mitral Valve Mild-moderate mitral valve regurgitation. Aortic Valve Thickened aortic valve. Trace to mild aortic valve regurgitation. Tricuspid Valve Mild tricuspid valve regurgitation. Pulmonic Valve Trace pulmonary valve regurgitation. Pericardium Normal pericardium without effusion. Aorta Normal ascending aorta dimension. IVC The inferior vena cava appears normal. CONCLUSIONS Normal left ventricular size with borderline ejection fraction of 50-55 %. Mild left ventricular hypertrophy. Relative hypokinesis of the basal and mid inferolateral and apical septal segments. Abnormal septal motion consistent with conduction abnormality. Grade I/IV diastolic dysfunction (abnormal relaxation filling pattern), normal to mildly elevated filling pressures. Mildly increased left atrial size. Thickened aortic valve. Trace to mild aortic valve regurgitation. Mild tricuspid valve regurgitation. Trace pulmonary valve regurgitation. There is no pericardial effusion. There are no intracardiac masses. No similar previous studies are available for comparison Saline contrast injection revealed no evidence of any right left shunt Revised report on the study from 07/09/2024 Dr Odette Cardenas MD [facility] (Electronically Signed) Final Date: 10 July 2024 15:42 Amended: 14 July 2024 08:14 C
[2024-07-09 20:17] LABS: Glucose Point of Care 124 mg/dL (70-110)
[2024-07-09] MEDS: atorvastatin 40 mg Tablet PO (21:30)
[2024-07-09 21:56] LABS: Bilirubin Urine Negative (Negative); Blood Urine Negative (Negative); Glucose Urine UA Negative (Normal); Ketones Urine Negative (Negative); Leukocyte Esterase Urine 2+ (Negative); Nitrate Urine Positive (Negative); Protein Urine Negative (Negative); Urine Appearance Cloudy (CLEAR); Urine Color Yellow (Yellow); Urobilinogen Urine 0.2 mg/dL (Negative); pH Urine 7.5 (5-7)
[2024-07-09 22:01] LABS: Add Urine Microscopic? YES; Bacteria Urine EXCEEDS /hpf; Hyaline Casts Urine 0-4 /lpf; RBC Urine 0-2 /hpf (0-2); Squamous Epithelial Cell Urine 0-5 /hpf (0-5); WBC Urine 51-100 /hpf (0-5)
[2024-07-09 22:09] LABS: Add Urine Culture? Yes
[2024-07-10] VITALS (9 sets, daily range): BP systolic 164–178; BP diastolic 69–88; PULSE 54–61; RESP 16–20; TEMP 36.4–37; O2SAT 90–94
[2024-07-10] MEDS: cefTRIAXone 1,000 mg SDV 1000 MG IVP (01:13)
[2024-07-10] MEDS: sodium chloride 0.9% 1,000 ML 100 ML IV ×2 (04:32→14:21)
[2024-07-10 05:23] LABS: Basophils # 0.1 10^3/uL (0.0-0.1); Basophils % 1.6 %; Eosinophils # 0.2 10^3/uL (0.0-0.8); Eosinophils % 3.5 %; Hematocrit 33.6 % (37-53); Lymphocytes # 1.1 10^3/uL (0.8-4.8); Lymphocytes % 18.7 %; Mean Corpuscular HGB Conc 33.3 g/dL (30-55); Mean Corpuscular Hemoglobin 29.9 pg (27-33); Mean Corpuscular Volume 89.6 fl (82-101); Mean Platelet Volume 9.7 fL (7.4-10.4); Monocytes # 0.9 10^3/uL (0.2-0.9); Monocytes % 15.5 %; Neutrophils # 3.47 10^3/uL (1.8-7.7); Neutrophils % 60.5 %; Nucleated Red Blood Cells % 0 %; Platelet Count 191 10^3/cmm (157-399); Red Blood Count 3.75 10^6/uL (3.85-5.65); Red Cell Distribution Width 14.1 % (12.1-15.1); White Blood Count 5.73 10^3/uL (3.29-11.43)
--- NOTE | 2024-07-10 05:33 | PC.NURSE ---
This nurse received in report that pt strait cathed 5x daily at home. due to increased risk for infection and staff availability for strait catheterization dayshift received the order to place a Ruiz catheter. Dayshift as well as rn ccu staff attempted to place multiple types of catheters on the patient (12-16 [place] sizes and coude) all attempts were unsuccessful. This nurse had the patient family member bring in the patient home strait catheterization supplies due to his home catheters being more firm to work around his prostate. Patient sat up on the side of the bed with standby assistance and preformed strait catheterization with home catheters and 1100 cc of urine was voided. patient tolerated procedure very well. due to smell and appearance of urine orders were obtained for UA. due to difficulty of Ruiz placement this nurse as well as charge aide Nyasia decided to assist the patient with his normal routine of strait catheterization throughout the shift. as of this time the patient has strait cathed twice this shift with a total of 1500 out. is to bring more strait caths from home on dayshi pt has enough to last the next day at bedside.
[2024-07-10 05:48] LABS: Anion Gap 14.6 (5-19); Blood Urea Nitrogen 14 mg/dL (8-23); Calcium 8.6 mg/dL (8.5-10.5); Carbon Dioxide 24 mmol/L (22-29); Chloride 109 mmol/L (98-107); Creatinine Clr Calc Pharmacy 78.2418; Glucose 134 mg/dL (65-115); Osmolality Calculated 300 mOsm/kg (285-295); Potassium 3.6 mmol/L (3.5-5.1); Sodium 144 mmol/L (136-145)
[2024-07-10 05:53] LABS: Chol HDL Ratio 2.46 mg/dL (1.0-5.00); Cholesterol 113 mg/dL (0-200); HDL Cholesterol 46 mg/dL (60-100); LDL Cholesterol Calculated 46 mg/dL (50-129); Triglycerides 107 mg/dL (0-150)
[2024-07-10 06:09] LABS: Vitamin B12 1333 pg/mL (232-1245)
[2024-07-10 06:32] LABS: Glucose Point of Care 128 mg/dL (70-110)
[2024-07-10 07:00] LABS: Estmated Average Glucose 163; Hemoglobin A1C 7.3 % (4.0-6.0)
[2024-07-10] MEDS: aspirin 81 mg EC Tablet 162 MG PO (08:01)
--- NOTE | 2024-07-10 09:20 | CT_ITS ---
WS: [id number] CT HEAD TECHNIQUE: Noncontrast CT of the head obtained from the skullbase to the vertex. CLINICAL INFORMATION: vertigo, poss posterior CVA COMPARISON: CT 07/09/2024 DLP: 1149.[address] scans at [facility] use at least one of these dose optimization techniques: automated e xposure control; mA and/or kV adjustment per patient size (includes targeted exams where dose is matc hed to clinical indication); or iterative reconstruction. FINDINGS: No evidence of intracranial hemorrhage or mass effect. Ventricular system and basal cisterns are kim nt. Moderate small vessel changes with moderate parenchymal volume loss. No extra-axial fluid collect ions. No evidence of mass or mass effect. Tiny chronic lacunar infarct LEFT thalamus Beam-hardening artifact LEFT cochlear implant. Inspissated secretions with opacification LEFT maxilla ry sinus ethmoid air cells and sphenoid sinus. Partial opacification with sinusitis in the frontal si nuses. Small retention cyst or polyp RIGHT maxillary sinus. LEFT cochlear implant. Canal wall up LEFT mastoidectomy with opacification of the LEFT mastoid air cells. Partial opacification of the RIGHT m astoid air cells. CT/CT head wo con* [id number] IMPRESSION: 1. No acute intracranial findings 2. Paranasal sinusitis
--- NOTE | 2024-07-10 09:20 | CT_ITS ---
WS: [id number] CT SINUSES TECHNIQUE: Noncontrast CT of the paranasal sinuses with coronal and sagittal reformatted images. CLINICAL INFORMATION: vertigo COMPARISON: CT 07/10/2024 DLP: 435.[address] scans at [facility] use at least one of these dose optimization techniques: automated e xposure control; mA and/or kV adjustment per patient size (includes targeted exams where dose is matc hed to clinical indication); or iterative reconstruction. FINDINGS: Paranasal sinusitis unchanged from earlier today. Diffuse chronic appearing opacification of the LEFT ostiomeatal unit. Opacification LEFT maxillary sinus, ethmoid air cells and sphenoid sinuses. Air-fl uid levels in the RIGHT frontal sinus. Opacification LEFT frontal sinus and frontoethmoidal recesses. Opacification of the sphenoid sinuses with a chronic appearance. Opacification of the sphenoid sinus ostia. Partially visualized LEFT cochlear implant. Normal posterior nasopharynx. CT/CT sinus wo con* [id number] IMPRESSION: 1. Paranasal sinusitis unchanged from earlier today
--- NOTE | 2024-07-10 10:10 | PC.SOCIAL ---
IMM Update Patients admission status has been corrected. IMM updated and reviewed w/ patient. Copy provided, copy dated, initialed and placed in chart.
[2024-07-10] MEDS: insulin lispro 100 unit/1 mL SUBCUT ×2 (11:52→21:35)
[2024-07-10 11:53] LABS: Glucose Point of Care 181 mg/dL (70-110)
[2024-07-10 17:19] LABS: Glucose Point of Care 111 mg/dL (70-110)
[2024-07-10] MEDS: enoxaparin 40 mg/0.4 mL Syringe SUBCUT (17:25)
--- NOTE | 2024-07-10 20:48 | P.PN_ITS ---
Subjective 2 Subjective: He worked with physical therapy today. He has still gotten episodes of vertigo today, and also lost his balance trying to transfer from the wheelchair to the bed, but states at that point was not having vertigo. Vitals/I&O/Wt Last Vital Signs Temp 98.0 F 07/10/24 11:11 Pulse 54 L 07/10/24 14:00 Resp 16 07/10/24 11:11 BP 167/84 07/10/24 11:11 Pulse Ox 92 07/10/24 11:11 O2 Del Method Room Air 07/10/24 11:11 07/10/24 07/10/24 07/10/24 06:59 14:59 22:59 Intake Total 1120 / 1120 1461.667 / 1461.667 368 / 1829.667 Output Total 400 / 1500 1300 / 1300 Balance 720 / -380 161.667 / 161.667 368 / 529.667 Weight last 48 hrs Weight 90.718 kg Weight 90.718 kg Physical Exam 2 Narrative: Sitting up in bed, accompanied by his family. Const: COMMON NORMALS: patient oriented x3 and alert GENERAL APPEARANCE: c ooperative ORIENTATION/CONSCIOUSNESS: Yes awake HENMT: COMMON NORMALS: oropharynx normal Neck/C-Spine: COMMON NORMALS: no JVD Resp: COMMON NORMALS: normal respiratory effort and clear to auscultation bilaterally AUSCULTATION: clear to auscultation bilaterally Cardio: COMMON NORMALS: no JVD, regular rhythm, S1 normal heart sound present, S2 normal heart sound present and No murmurs present (Cardio) RHYTHM: regular rhythm HEART SOUNDS: S1 normal heart sound present and S2 normal heart sound present GI: COMMON NORMALS: Normal to inspection, nondistended, normoactive bowel sounds present, Soft to palpation and non-tender PALPATION: Yes Soft to palpation Extremity: COMMON NORMALS: no joint enlargement and no pedal edema Neuro: COMMON NORMALS: patient oriented x3 and moves all extremities S ENSORIUM/ORIENTATION: Yes alert OTHER: She is awake and alert, not following directions. No aphasia, dysarthria. No difficulties with horizontal tracking, no difficulties with motor or sensation of any other extremities. Noted left beating nystagmus on left gaze, no nystagmus in the right gaze. Head impulse test, test of skew normal. I could not trigger nystagmus or vertigo on [place]Hallpike. Skin: COMMON NORMALS: no rashes or lesions noted NARRATIVE SKIN EXAM: Posterior left shoulder abrasion, with mild serous weeping of various size small ulcerations, area about 2 x 4 inches, surrounding erythema and rectangular shape of previous dressing with adhesive allergy. GENERAL SKIN EXAM: no rashes or lesions noted Data 07/10/24 05:08 07/10/24 05:08 Micro: Microbiology 07/09/24 14:01 Blood Culture - Preliminary Blood NEGATIVE TO DATE 07/09/24 13:58 Blood Culture - Preliminary Blood NEGATIVE TO DATE A&P Assessment and plan (1) Posterior circulation stroke: Requested repeat head CT as per neurology recommendation. Additionally obtain CT sinuses due to noted bilateral mastoiditis. Noted paranasal sinusitis. Discussed with [facility], follow-up in office. With possibility of posterior CVA, unable to obtain MRI, continue gentle IV hydration, avoid rapid blood pressure drops with risk of cerebellar edema, herniation.. Monitor for risk of fluid overload. Resume his atenolol from tomorrow, tonight will give a small dose amlodipine. Monitor for any change in symptoms. Blood pressure. Multiple stroke risk factors. Continue optimization. Reviewed A1c, 7.3, diabetes well-controlled. Long-term needs optimization of blood pressure. Anticoagulation for atrial flutter if able to tolerate. Additional possibility of BPPV. I could not trigger vertigo with Luz Elena-Hallpike but seems today on PT exam vertigo was triggered. Decrease IVF rate. Otherwise test of skew, head impulse appears unremarkable. Able to trigger nystagmus on left gaze, not on right gaze. He did have a fall on Saturday. Rate 1 diastolic dysfunction, abnormal septal motion consistent with conduction abnormality. Relative hypokinesis of the basal and mid inferolateral and apical septal segments. Avoid NSAIDs. He is at risk of CVA secondary to atrial flutter, is only on aspirin 81 mg. Long-term if able to tolerate would benefit from anticoagulation, but does have risks of bleeding including intermittent hematochezia with history of colonic AVM, and currently vertigo with risk of falls. For now continue aspirin. We did discuss consideration of anticoagulation with him and family as well as the above risks. Echo bubble studyReviewed. Normal EF, Discussed with nursing, PT, case sealer. (2) Vertigo: As above. Fall precautions. (3) Shoulder abrasion: Continue wound care. With adhesive allergy minimal tape to hold gauze in place. (4) UTI (urinary tract infection): Ceftriaxone. Reviewed urine culture, pending. Reviewed UA, 51-100 WBC, multiple bacteria, nitrate positive. Follow-up culture results. Plan HTN continue atenolol HLD continue statin Atrial flutter: Discussed may benefit from anticoagulation for stroke risk prevention given multiple risk factors, elevated [id number] risk, however, also risk of bleeding with intermittent medic easier, blood streaked on stool, history of AVM, currently also additional risk of fall with vertigo. For now continue aspirin 81 mg. Continue atenolol. Diabetes: Hold metformin, sliding scale insulin, check POC glucose, consistent carbohydrate cardiac diet when restarted. Urinary retention, self caths 5 times a day: Ruiz catheter could not be placed. Patient's family brought in his supplies, he continues straight cathing. B12 deficiency: Reviewed B12 level, not low. Attestations 2 Medical Necessity Statement*: Continue admission for assessment of management of possible posterior CVA, vertigo, status post fall, and a gentleman with multiple stroke risk factors, suboptimally controlled hypertension, risk of brain herniation. and High MDM includes amount and/or complexity of data reviewed/ordered [ resulted lab(s)/test(s), ordered lab(s)/test(s) and other healthcare professional discussion] and described risk of complication, morbidity or mortality of management as documented Diagnoses Posterior circulation stroke I63.50 Vertigo R42 Shoulder abrasion S40.219A UTI (urinary tract infection) N39.0
[2024-07-10 21:23] LABS: Glucose Point of Care 258 mg/dL (70-110)
[2024-07-10] MEDS: amlodipine 5 mg Tablet PO (21:35)
[2024-07-10] MEDS: atorvastatin 40 mg Tablet PO (21:35)
[2024-07-11] VITALS (7 sets, daily range): BP systolic 133–169; BP diastolic 56–98; PULSE 53–72; RESP 15–20; TEMP 36.3–36.7; O2SAT 91–96
[2024-07-11] MEDS: cefTRIAXone 1,000 mg SDV 1000 MG IVP (01:09)
[2024-07-11 03:18] LABS: Basophils # 0.1 10^3/uL (0.0-0.1); Basophils % 1.2 %; Eosinophils # 0.2 10^3/uL (0.0-0.8); Eosinophils % 4.8 %; Hematocrit 33.8 % (37-53); Lymphocytes # 1.5 10^3/uL (0.8-4.8); Lymphocytes % 28.7 %; Mean Corpuscular Hemoglobin 29.6 pg (27-33); Mean Corpuscular Volume 92.6 fl (82-101); Mean Platelet Volume 10.4 fL (7.4-10.4); Monocytes # 0.8 10^3/uL (0.2-0.9); Monocytes % 16.6 %; Neutrophils # 2.45 10^3/uL (1.8-7.7); Neutrophils % 48.5 %; Nucleated Red Blood Cells % 0 %; Platelet Count 180 10^3/cmm (157-399); Red Blood Count 3.65 10^6/uL (3.85-5.65); White Blood Count 5.05 10^3/uL (3.29-11.43)
[2024-07-11 03:31] LABS: Anion Gap 14.2 (5-19); Blood Urea Nitrogen 13 mg/dL (8-23); Calcium 8.6 mg/dL (8.5-10.5); Carbon Dioxide 24 mmol/L (22-29); Chloride 108 mmol/L (98-107); Creatinine Clr Calc Pharmacy 78.2418; Glucose 91 mg/dL (65-115); Osmolality Calculated 296 mOsm/kg (285-295); Potassium 3.2 mmol/L (3.5-5.1); Sodium 143 mmol/L (136-145)
[2024-07-11] MEDS: sodium chloride 0.9% 1,000 ML 30 ML IV (06:48)
[2024-07-11 07:20] LABS: Glucose Point of Care 133 mg/dL (70-110)
[2024-07-11] MEDS: fluticasone nasal spray 16gm Btl 1 SPRAY INTRANASAL (07:54)
[2024-07-11] MEDS: artificial tears Op Soln 15 mL Btl 1 DROP EYE-BOTH ×2 (07:55→17:41)
[2024-07-11] MEDS: b-complex-vitamin c Tablet 1 EACH PO (07:55)
[2024-07-11] MEDS: aspirin 81 mg EC Tablet 162 MG PO (07:55)
[2024-07-11] MEDS: amlodipine 5 mg Tablet PO (09:59)
[2024-07-11] MEDS: potassium chloride ER 20 mEq Tablet 40 MEQ PO (09:59)
[2024-07-11 11:36] LABS: Glucose Point of Care 206 mg/dL (70-110)
[2024-07-11] MEDS: insulin lispro 100 unit/1 mL SUBCUT ×3 (12:04→20:57)
[2024-07-11] MEDS: enoxaparin 40 mg/0.4 mL Syringe SUBCUT (17:42)
[2024-07-11 17:47] LABS: Glucose Point of Care 153 mg/dL (70-110)
[2024-07-11 20:41] LABS: Glucose Point of Care 224 mg/dL (70-110)
[2024-07-11] MEDS: atorvastatin 40 mg Tablet PO (20:57)
--- NOTE | 2024-07-11 21:46 | P.PN_ITS ---
Subjective 2 Subjective: He had an additional episode of vertigo but overall it seems to be subsiding. Denies any headache. Vitals/I&O/Wt Last Vital Signs Temp 97.6 F 07/11/24 20:00 Pulse 72 07/11/24 20:00 Resp 18 07/11/24 20:00 BP 162/98 07/11/24 20:00 Pulse Ox 92 07/11/24 20:00 O2 Del Method Room Air 07/11/24 20:00 07/11/24 07/11/24 07/11/24 06:59 14:59 22:59 Intake Total 275 / 2829.667 720 / 720 240 / 960 Output Total 400 / 2200 650 / 650 Balance -125 / 629.667 70 / 70 240 / 310 Weight last 48 hrs Weight 89.811 kg Weight 90.718 kg Physical Exam 2 Narrative: Sitting up in bed, accompanied by his . Const: COMMON NORMALS: patient oriented x3 and alert GENERAL APPEARANCE: c ooperative ORIENTATION/CONSCIOUSNESS: Yes awake HENMT: COMMON NORMALS: oropharynx normal Neck/C-Spine: COMMON NORMALS: no JVD Resp: COMMON NORMALS: normal respiratory effort and clear to auscultation bilaterally AUSCULTATION: clear to auscultation bilaterally Cardio: COMMON NORMALS: no JVD, regular rhythm, S1 normal heart sound present, S2 normal heart sound present and No murmurs present (Cardio) RHYTHM: regular rhythm HEART SOUNDS: S1 normal heart sound present and S2 normal heart sound present GI: COMMON NORMALS: Normal to inspection, nondistended, normoactive bowel sounds present, Soft to palpation and non-tender PALPATION: Yes Soft to palpation Extremity: COMMON NORMALS: no joint enlargement and no pedal edema Neuro: COMMON NORMALS: patient oriented x3 and moves all extremities S ENSORIUM/ORIENTATION: Yes alert Skin: COMMON NORMALS: no rashes or lesions noted NARRATIVE SKIN EXAM: Posterior left shoulder abrasion, with mild serous weeping of various size small ulcerations, area about 2 x 4 inches, surrounding erythema and rectangular shape of previous dressing with adhesive allergy. 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 Still intermittent vertigo. Blood pressure gradually getting better, but still elevated. Added amlodipine this morning. Atenolol had to be held due to bradycardia. DC IV fluid. Continue mobilization, pending arrangements for rehabilitation. Continue fall precautions. Requested repeat head CT as per neurology recommendation. Additionally obtain CT sinuses due to noted bilateral mastoiditis. Noted paranasal sinusitis. Discussed with Dr. Lal ENT, follow-up in office. With possibility of posterior CVA, unable to obtain MRI, continue gentle IV hydration, avoid rapid blood pressure drops with risk of cerebellar edema, herniation. Monitor for risk of fluid overload. Resume his atenolol from tomorrow, tonight will give a small dose amlodipine. Monitor for any change in symptoms. Blood pressure. Multiple stroke risk factors. Continue optimization. Reviewed A1c, 7.3, diabetes well-controlled. Long-term needs optimization of blood pressure. Anticoagulation for atrial flutter if able to tolerate. Additional possibility of BPPV. I could not trigger vertigo with [place]pike but seems today on PT exam vertigo was triggered. Otherwise test of skew, head impulse appears unremarkable. Able to trigger nystagmus on left gaze, not on right gaze. He did have a fall last Saturday a week ago. Rate 1 diastolic dysfunction, abnormal septal motion consistent with conduction abnormality. Relative hypokinesis of the basal and mid inferolateral and apical septal segments. Avoid NSAIDs. He is at risk of CVA secondary to atrial flutter, is only on aspirin 81 mg. Long-term if able to tolerate would benefit from anticoagulation, but does have risks of bleeding including intermittent hematochezia with history of colonic AVM, and currently vertigo with risk of falls. For now continue aspirin. We did discuss consideration of anticoagulation with him and family as well as the above risks. Echo bubble studyReviewed. Normal EF, (2) Vertigo: As above. Fall precautions. (3) Shoulder abrasion: Continue wound care. With adhesive allergy minimal tape to hold gauze in place. (4) UTI (urinary tract infection): Ceftriaxone. Reviewed urine culture, pending day 1. Plan Bradycardia: Tenormin held this morning his heart rate in the low 60s. Received a dose of amlodipine. Decrease atenolol to 12.5 mg. HTN: Added amlodipine. Decreased atenolol dose due to bradycardia. HLD continue statin Atrial flutter: Discussed may benefit from anticoagulation for stroke risk prevention given multiple risk factors, elevated [id number] risk, however, also risk of bleeding with intermittent medic easier, blood streaked on stool, history of AVM, currently also additional risk of fall with vertigo. For now continue aspirin 81 mg. Continue atenolol. Diabetes: Hold metformin, sliding scale insulin, check POC glucose, consistent carbohydrate cardiac diet when restarted. Urinary retention, self caths 5 times a day: Ruiz catheter could not be placed. Patient's family brought in his supplies, he continues straight cathing. B12 deficiency: Reviewed B12 level, not low. Attestations 2 Medical Necessity Statement*: Continue admission for assessment management of suspected posterior circulation CVA, persistent vertigo, optimization of blood pressure control, avoiding rapid blood pressure decreased with possible posterior stroke, at risk of brain herniation, unable to obtain MRI. Pending arrangements for postdischarge rehabilitation. Diagnoses Posterior circulation stroke I63.50 Vertigo R42 Shoulder abrasion S40.219A UTI (urinary tract infection) N39.0
[2024-07-12] VITALS (10 sets, daily range): BP systolic 136–173; BP diastolic 76–93; PULSE 56–73; RESP 16–17; TEMP 36.2–37.1; O2SAT 92–98
[2024-07-12] MEDS: cefTRIAXone 1,000 mg SDV 1000 MG IVP (00:52)
[2024-07-12 04:26] LABS: Basophils # 0.1 10^3/uL (0.0-0.1); Basophils % 1.2 %; Eosinophils # 0.3 10^3/uL (0.0-0.8); Eosinophils % 4.6 %; Hematocrit 38.8 % (37-53); Lymphocytes # 1.8 10^3/uL (0.8-4.8); Lymphocytes % 26.8 %; Mean Corpuscular Hemoglobin 29.7 pg (27-33); Mean Corpuscular Volume 92.8 fl (82-101); Mean Platelet Volume 10.4 fL (7.4-10.4); Monocytes % 15.1 %; Neutrophils # 3.41 10^3/uL (1.8-7.7); Nucleated Red Blood Cells % 0 %; Platelet Count 244 10^3/cmm (157-399); Red Blood Count 4.18 10^6/uL (3.85-5.65); Red Cell Distribution Width 14.1 % (12.1-15.1); White Blood Count 6.56 10^3/uL (3.29-11.43)
[2024-07-12 04:51] LABS: Anion Gap 14.1 (5-19); Blood Urea Nitrogen 15 mg/dL (8-23); Calcium 8.9 mg/dL (8.5-10.5); Carbon Dioxide 26 mmol/L (22-29); Chloride 106 mmol/L (98-107); Creatinine Clr Calc Pharmacy 77.9206; Glucose 133 mg/dL (65-115); Osmolality Calculated 297 mOsm/kg (285-295); Potassium 4.1 mmol/L (3.5-5.1); Sodium 142 mmol/L (136-145)
[2024-07-12 06:21] LABS: Glucose Point of Care 139 mg/dL (70-110)
[2024-07-12] MEDS: amlodipine 5 mg Tablet PO (08:20)
[2024-07-12] MEDS: aspirin 81 mg EC Tablet 162 MG PO (08:20)
[2024-07-12] MEDS: b-complex-vitamin c Tablet 1 EACH PO (08:20)
[2024-07-12] MEDS: artificial tears Op Soln 15 mL Btl 1 DROP EYE-BOTH ×2 (08:21→17:13)
[2024-07-12] MEDS: fluticasone nasal spray 16gm Btl 1 SPRAY INTRANASAL (08:21)
[2024-07-12 11:20] LABS: Glucose Point of Care 209 mg/dL (70-110)
[2024-07-12] MEDS: insulin lispro 100 unit/1 mL SUBCUT ×2 (11:46→22:23)
[2024-07-12 16:51] LABS: Glucose Point of Care 133 mg/dL (70-110)
[2024-07-12] MEDS: enoxaparin 40 mg/0.4 mL Syringe SUBCUT (17:12)
[2024-07-12 20:55] LABS: Glucose Point of Care 166 mg/dL (70-110)
--- NOTE | 2024-07-12 21:15 | P.PN_ITS ---
Subjective 2 Subjective: He ambulated again, again with some vertigo. Overall episodes are gradually less bothersome and less frequent. Vitals/I&O/Wt Last Vital Signs Temp 97.6 F 07/12/24 16:00 Pulse 59 L 07/12/24 16:00 Resp 17 07/12/24 16:00 BP 161/79 07/12/24 16:00 Pulse Ox 95 07/12/24 16:00 O2 Del Method Room Air 07/12/24 16:00 O2 Flow Rate 2 07/12/24 00:00 07/12/24 07/12/24 07/12/24 06:59 14:59 22:59 Intake Total 360 / 2320 720 / 720 120 / 840 Balance 360 / 1670 720 / 720 120 / 840 Weight last 48 hrs Weight 90.083 kg Weight 89.811 kg Physical Exam 2 Narrative: Sitting up in bed. Const: COMMON NORMALS: patient oriented x3 and alert GENERAL APPEARANCE: c ooperative ORIENTATION/CONSCIOUSNESS: Yes awake HENMT: COMMON NORMALS: oropharynx normal Neck/C-Spine: COMMON NORMALS: no JVD Resp: COMMON NORMALS: normal respiratory effort and clear to auscultation bilaterally AUSCULTATION: clear to auscultation bilaterally Cardio: COMMON NORMALS: no JVD, regular rhythm, S1 normal heart sound present, S2 normal heart sound present and No murmurs present (Cardio) RHYTHM: regular rhythm HEART SOUNDS: S1 normal heart sound present and S2 normal heart sound present GI: COMMON NORMALS: Normal to inspection, nondistended, normoactive bowel sounds present, Soft to palpation and non-tender PALPATION: Yes Soft to palpation Extremity: COMMON NORMALS: no joint enlargement and no pedal edema Neuro: COMMON NORMALS: patient oriented x3 and moves all extremities S ENSORIUM/ORIENTATION: Yes alert OTHER: Could not trigger nystagmus today on lateral gaze. No trouble with FNF. Skin: COMMON NORMALS: no rashes or lesions noted NARRATIVE SKIN EXAM: Posterior left shoulder abrasion, with mild serous weeping of various size small ulcerations, area about 2 x 4 inches, surrounding erythema and rectangular shape of previous dressing with adhesive allergy. GENERAL SKIN EXAM: no rashes or lesions noted Data 07/12/24 03:23 07/12/24 03:23 Micro: Microbiology 07/09/24 21:30 Urine Culture - Preliminary Urine,Clean Catch Gram Negative Rods A&P Assessment and plan (1) Posterior circulation stroke: Symptoms gradually improving. IV fluids stopped. Blood pressure still with elevation up to 173/79 this morning. Additionally with bradycardia again this morning could not receive atenolol. Discussed with him. Increase amlodipine to 10 mg. Reviewed CBC, without leukocytosis, afebrile. No ear pain or discharge. Reviewed BMP, renal function normal. Recheck studies. Continue mobilization, pending arrangements for rehabilitation. Continue fall precautions. Requested repeat head CT as per neurology recommendation. Additionally obtain CT sinuses due to noted bilateral mastoiditis. Noted paranasal sinusitis. Discussed with Dr. Lal ENT, follow-up in office. With possibility of posterior CVA, unable to obtain MRI, continue gentle IV hydration, avoid rapid blood pressure drops with risk of cerebellar edema, herniation. Monitor for risk of fluid overload. Resume his atenolol from tomorrow, tonight will give a small dose amlodipine. Monitor for any change in symptoms. Blood pressure. Multiple stroke risk factors. Continue optimization. Reviewed A1c, 7.3, diabetes well-controlled. Long-term needs optimization of blood pressure. Anticoagulation for atrial flutter if able to tolerate. Additional possibility of BPPV. I could not trigger vertigo with [place]Hallpike but seems today on PT exam vertigo was triggered. Otherwise test of skew, head impulse appears unremarkable. Able to trigger nystagmus on left gaze, not on right gaze. He did have a fall last Saturday a week ago. Rate 1 diastolic dysfunction, abnormal septal motion consistent with conduction abnormality. Relative hypokinesis of the basal and mid inferolateral and apical septal segments. Avoid NSAIDs. He is at risk of CVA secondary to atrial flutter, is only on aspirin 81 mg. Long-term if able to tolerate would benefit from anticoagulation, but does have risks of bleeding including intermittent hematochezia with history of colonic AVM, and currently vertigo with risk of falls. For now continue aspirin. We did discuss consideration of anticoagulation with him and family as well as the above risks. Echo bubble studyReviewed. Normal EF, (2) Vertigo: As above. Fall precautions. (3) Shoulder abrasion: Continue wound care. With adhesive allergy minimal tape to hold gauze in place. (4) UTI (urinary tract infection): Reviewed CBC, without leukocytosis. Reviewed blood culture, remaining negative. Reviewed urine culture, noted more than 100,000 gram-negative rods. Continue ceftriaxone. Plan Bradycardia: Tenormin held this morning his heart rate in the low 60s. Received a dose of amlodipine. Hold atenolol to 12.5 mg. HTN: Added amlodipine. Decreased atenolol dose due to bradycardia. HLD continue statin Atrial flutter: Discussed may benefit from anticoagulation for stroke risk prevention given multiple risk factors, elevated [id number] risk, however, also risk of bleeding with intermittent medic easier, blood streaked on stool, history of AVM, currently also additional risk of fall with vertigo. For now continue aspirin 81 mg. Continue atenolol. Diabetes: Hold metformin, sliding scale insulin, check POC glucose, consistent carbohydrate cardiac diet when restarted. Urinary retention, self caths 5 times a day: Ruiz catheter could not be placed. Patient's family brought in his supplies, he continues straight cathing. B12 deficiency: Reviewed B12 level, not low. Attestations 2 Medical Necessity Statement*: Continue admission for assessment management of suspected posterior circulation CVA, persistent vertigo, optimization of blood pressure control, avoiding rapid blood pressure decreased with possible posterior stroke, at risk of brain herniation, unable to obtain MRI. Pending arrangements for postdischarge rehabilitation. Diagnoses Posterior circulation stroke I63.50 Vertigo R42 Shoulder abrasion S40.219A UTI (urinary tract infection) N39.0
[2024-07-12] MEDS: atorvastatin 40 mg Tablet PO (22:23)
[2024-07-13] VITALS (8 sets, daily range): BP systolic 119–185; BP diastolic 70–88; PULSE 61–82; RESP 15–19; TEMP 36.7–37; O2SAT 92–98
[2024-07-13] MEDS: cefTRIAXone 1,000 mg SDV 1000 MG IVP (00:03)
[2024-07-13 05:30] LABS: Basophils # 0.1 10^3/uL (0.0-0.1); Basophils % 1.5 %; Eosinophils # 0.3 10^3/uL (0.0-0.8); Eosinophils % 5.2 %; Hematocrit 38.9 % (37-53); Lymphocytes # 1.4 10^3/uL (0.8-4.8); Lymphocytes % 23.9 %; Mean Corpuscular HGB Conc 31.9 g/dL (30-55); Mean Platelet Volume 9.9 fL (7.4-10.4); Monocytes # 0.9 10^3/uL (0.2-0.9); Monocytes % 16.2 %; Neutrophils # 3.08 10^3/uL (1.8-7.7); Neutrophils % 52.9 %; Nucleated Red Blood Cells % 0 %; Platelet Count 210 10^3/cmm (157-399); Red Blood Count 4.14 10^6/uL (3.85-5.65); Red Cell Distribution Width 14.3 % (12.1-15.1); White Blood Count 5.82 10^3/uL (3.29-11.43)
[2024-07-13 05:52] LABS: Anion Gap 12.4 (5-19); Blood Urea Nitrogen 14 mg/dL (8-23); Carbon Dioxide 27 mmol/L (22-29); Chloride 108 mmol/L (98-107); Creatinine Clr Calc Pharmacy 78.0169; Glucose 123 mg/dL (65-115); Osmolality Calculated 298 mOsm/kg (285-295); Potassium 4.4 mmol/L (3.5-5.1); Sodium 143 mmol/L (136-145)
[2024-07-13 06:31] LABS: Glucose Point of Care 137 mg/dL (70-110)
[2024-07-13] MEDS: b-complex-vitamin c Tablet 1 EACH PO (08:34)
[2024-07-13] MEDS: aspirin 81 mg EC Tablet 162 MG PO (08:34)
[2024-07-13] MEDS: amlodipine 5 mg Tablet 10 MG PO (08:35)
[2024-07-13] MEDS: artificial tears Op Soln 15 mL Btl 1 DROP EYE-BOTH (08:35)
[2024-07-13] MEDS: fluticasone nasal spray 16gm Btl 1 SPRAY INTRANASAL (08:35)
--- NOTE | 2024-07-13 10:15 | PC.SOCIAL ---
IMM Update Pg. 2 of [facility] updated and reviewed with patient, who verbalized understanding, copy provided.
[2024-07-13 11:24] LABS: Glucose Point of Care 343 mg/dL (70-110)
[2024-07-13] MEDS: insulin lispro 100 unit/1 mL SUBCUT (11:58)
[2024-07-13 16:22] LABS: Glucose Point of Care 159 mg/dL (70-110)
--- NOTE | 2024-07-13 17:40 | P.DS_ITS ---
Discharge Providers Date of Admission: 07/09/24 19:50 Date of Discharge: July 13, 2024 Attending Provider at Admission: Joel Bartlett Attending Provider at Discharge: Joel Bartlett Primary Care Provider: Tamiko Louis DO Diagnoses at Discharge Discharge Diagnosis (1) Posterior circulation stroke: Status: Acute (2) Vertigo: Status: Acute (3) Shoulder abrasion: Status: Acute (4) UTI (urinary tract infection): Status: Acute Reason for Visit Reason for Visit: dizzy, nausea Brief History: Very pleasant 89-year-old gentleman developed dizziness overnight around 2 AM which persisted again later in the morning when he was waking up. Making difficult for him to ambulate, feeling like he is continuously rotating horizontally. He denies any changes in his hearing, he does have a cochlear implant. Denies any ear pain or discharge. Reports history of sinusitis for which she was following with Dr. Lal which she states has been under control. Reports some mild chronic tinnitus in the right ear which has not changed. He does report having a fall on Saturday after he bent down to straighten out a kink in a garden hose, lost his balance and continue to fall forward, scraped his posterior right shoulder on the siding, and does not remember, but possibly hit his head. He otherwise denies fever or chills. No headache. Had some nausea this morning, no vomiting. In ER blood pressure is elevated. He reports blood pressure usually runs closer to 120s-130s. His reports history of possibly having heart flutter for which he is possibly on aspirin 81 mg and atenolol although they are not sure if he was formally diagnosed with atrial flutter. He does have history of hypertension, hypercholesterolemia. He is a former pipe smoker. Hospital Course Hospital Course Per recommendation by neurology CT head was repeated the following day. Acute CVA was not visualized on CT. He was not found a candidate for MRI brain due to cochlear implant. Additionally obtain CT sinuses. Per neurology concern for posterior discretion CVA. Treated accordingly. Received IV hydration, initially blood pressure resolved to remain on higher side, gradually decreased, fluids tapered down, escalated on antihypertensives. Atenolol was initially restarted, however, he went into difficulties with bradycardia, heart rates down to 50-52, could not tolerate atenolol which had to be held. He was started on amlodipine 10 mg. Continued on aspirin 162 mg. Head and neck CTA did not reveal significant stenosis. Echocardiogram bubble study showed normal ejection fraction, grade 1 diastolic dysfunction, septal motion consistent with conduction abnormality. At discharge she is set up with event monitor to further assess extent of bradycardia, flutter. 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 Additionally with risk of fall, as per discussion risk of bleeding for now is too great to try to start anticoagulation. He is asked to follow-up with primary provider and cardiology to consider referral for left atrial appendage closure as per discussion with ongoing risk of stroke from atrial flutter, versus consideration of trial of anticoagulation possibly with follow-up with GI for additional management of AVM. For the time being aspirin is increased to 325 mg. He worked with physical therapy and they did seem to be able to trigger nystagmus on Luz Elena-Hallpike maneuver at 1 point, although I was not able to reproduce with. He does have also paranasal sinusitis, chronic appearing opacification of left ostiomeatal unit, maxillary sinus, ethmoid air cells and sphenoid sinuses. Air-fluid levels in the right frontal sinus. Opacification of left frontal sinus and frontal ethmoidal recess. Sphenoid sinuses with chronic appearance. Opacification of sphenoid sinus ostia. On prior CT of the head also noted mastoiditis. He had no pain, fever or leukocytosis. Per discussion with ENT he is asked to follow-up in office for additional assessment. He was additionally treated for urinary tract infection with ceftriaxone. Urine culture came back growing Citrobacter youngae resistant to ampicillin, intermediate Unasyn, resistant to cefuroxime, ciprofloxacin, intermediate gentamicin, resistant levofloxacin, tetracycline and Bactrim. Sensitive to ceftriaxone. He was self catheterizing during the hospitalization. He will complete course of antibiotic with cefdinir at discharge, follow-up with urology. He states he no longer takes nitrofurantoin, he was prescribed another medication by his urologist, asked to started after he completes antibiotic. With very bothersome vertigo initially, high risk of falls, rehabilitation at SNF was initially being arranged, however, through hospitalization his condition improved with fewer episodes of vertigo which subsequently mostly subsided. He is encouraged on fall precautions, and he is referred for continued outpatient physical therapy. Physical Exam Narrative: Sitting up in bed. Accompanied by his . Const: COMMON NORMALS: patient oriented x3 and alert GENERAL APPEARANCE: cooperative ORIENTATION/CONSCIOUSNESS: Yes awake HENMT: COMMON NORMALS: oropharynx normal Neck/C-Spine: COMMON NORMALS: no JVD Resp: COMMON NORMALS: normal respiratory effort and clear to auscultation bilaterally AUSCULTATION: clear to auscultation bilaterally Cardio: COMMON NORMALS: no JVD, regular rhythm, S1 normal heart sound present, S2 normal heart sound present and No murmurs present (Cardio) RHYTHM: regular rhythm HEART SOUNDS: S1 normal heart sound present and S2 normal heart sound present GI: COMMON NORMALS: Normal to inspection, nondistended, normoactive bowel sounds present, Soft to palpation and non-tender PALPATION: Yes Soft to palpation Extremity: COMMON NORMALS: no joint enlargement and no pedal edema Neuro: COMMON NORMALS: patient oriented x3 and moves all extremities SENSORIUM/ORIENTATION: Yes alert OTHER: Could not trigger nystagmus today on lateral gaze. No trouble with FNF. Skin: COMMON NORMALS: no rashes or lesions noted NARRATIVE SKIN EXAM: Posterior left shoulder abrasion, with significantly improved healing abrasion, resolved inflamed/erythematous area of rectangular shape, red blood at one of the small residual ulcerations. GENERAL SKIN EXAM: no rashes or lesions noted Discharge Data Studies Completed and Pending Completed Studies During Hospitalization Category Date Time Status CT head wo con* [id number] Routine Cat Scan 07/10/24 09:[address] head wo con* [id number] Stat Cat Scan 07/09/24 13:[address] sinus wo con* [id number] Routine Cat Scan 07/10/24 09:20 Completed CTA head neck [CT angio headneck* [id number]] Stat Cat Scan 07/09/24 16:09 Completed XR chest 1V portable [id number] Stat Exams 07/09/24 13:42 Completed CV. echo w/w bubble cont [id number] Routine Ultrasound 07/09/24 18:54 Completed Pending at discharge Category Date Time Status Blood Culture Stat Lab 07/09/24 13:58 Results Radiology Impressions Chest X-Ray 07/09/24 13:42 IMPRESSION: 1. The lungs are clear. 2. Hiatal hernia. Head/Neck CTA 07/09/24 16:09 IMPRESSION: No large vessel stenosis or occlusion. IMPRESSION: No stenosis or occlusion. REFERENCES: NASCET CRITERIA. The degree of stenosis in the cervical segment of the internal carotid artery is based on NASCET criteria. Normal is no stenosis. Mild is less than 50% stenosis. Moderate is 50-69% stenosis. Severe is 70% to 99% stenosis. Total occlusion is no detectable patent lumen. Head CT 07/10/24 09:20 IMPRESSION: 1. No acute intracranial findings 2. Paranasal sinusitis Sinuses CT 07/10/24 09:20 IMPRESSION: 1. Paranasal sinusitis unchanged from earlier today Laboratory Results WBC 5.82 10^3/uL (3.29-11.43) 07/13/24 04:15 RBC 4.14 10^6/uL (3.85-5.65) 07/13/24 04:15 Hgb 12.40 g/dL (11.27-16.99) 07/13/24 04:15 Hct 38.9 % (37-53) 07/13/24 04:15 MCV 94.0 fl (82-101) 07/13/24 04:15 MCH 30.0 pg (27-33) 07/13/24 04:15 MCHC 31.9 g/dL (30-55) 07/13/24 04:15 RDW 14.3 % (12.1-15.1) 07/13/24 04:15 Plt Count 210 10^3/cmm (157-399) 07/13/24 04:15 MPV 9.9 fL (7.4-10.4) 07/13/24 04:15 Neut % (Auto) 52.9 % 07/13/24 04:15 Lymph % (Auto) 23.9 % 07/13/24 04:15 [place] % (Auto) 16.2 % 07/13/24 04:15 Eos % (Auto) 5.2 % 07/13/24 04:15 Baso % (Auto) 1.5 % 07/13/24 04:15 Neut # (Auto) 3.08 10^3/uL (1.8-7.7) 07/13/24 04:15 Lymph # (Auto) 1.4 10^3/uL (0.8-4.8) 07/13/24 04:15 [place] # (Auto) 0.9 10^3/uL (0.2-0.9) 07/13/24 04:15 Eos # (Auto) 0.3 10^3/uL (0.0-0.8) 07/13/24 04:15 Baso # (Auto) 0.1 10^3/uL (0.0-0.1) 07/13/24 04:15 Nucleated RBC % (auto) 0 % 07/13/24 04:15 Nucleated RBCs # 0.0 /100WBC 07/13/24 04:15 Sodium 143 mmol/L (136-145) 07/13/24 04:15 Potassium 4.4 mmol/L (3.5-5.1) 07/13/24 04:15 Chloride 108 mmol/L (98-107) H 07/13/24 04:15 Carbon Dioxide 27 mmol/L (22-29) 07/13/24 04:15 Anion Gap 12.4 (5-19) 07/13/24 04:15 BUN 14 mg/dL (8-23) 07/13/24 04:15 Creatinine 0.8 mg/dL (0.7-1.2) 07/13/24 04:15 GFR Calculation Not Reportable 07/13/24 04:15 Glucose 123 mg/dL (65-115) H 07/13/24 04:15 POC Glucose 159 mg/dL (70-110) H 07/13/24 16:13 Estimat Average Glucose 163 07/10/24 05:08 Hemoglobin A1c 7.3 % (4.0-6.0) H 07/10/24 05:08 Calculated Osmolality 298 mOsm/kg (285-295) H 07/13/24 04:15 Calcium 9.0 mg/dL (8.5-10.5) 07/13/24 04:15 Total Bilirubin 0.9 mg/dL (0.15-1.2) 07/09/24 13:58 AST 17 U/L (0-40) 07/09/24 13:58 ALT 11 U/L (0-41) 07/09/24 13:58 Alkaline Phosphatase 97 U/L (40-130) 07/09/24 13:58 Total Protein 7.1 g/dL (6.6-8.7) 07/09/24 13:58 Albumin 3.9 g/dL (3.5-5.2) 07/09/24 13:58 Globulin 3.2 g/dL (1.3-4.6) 07/09/24 13:58 Triglycerides 107 mg/dL (0-150) 07/10/24 05:08 Cholesterol 113 mg/dL (0-200) 07/10/24 05:08 LDL Cholesterol, Calc 46 mg/dL (50-129) L 07/10/24 05:08 HDL Cholesterol 46 mg/dL (60-100) L 07/10/24 05:08 LDL/HDL Ratio 1.00 RATIO (0.00-3.22) 07/10/24 05:08 Cholesterol/HDL Ratio 2.46 mg/dL (1.0-5.00) 07/10/24 05:08 Vitamin B12 1333 pg/mL (232-1245) H 07/10/24 05:08 Urine Color Yellow (Yellow) 07/09/24 21:30 Urine Appearance Cloudy (CLEAR) A 07/09/24 21:30 Urine pH 7.5 (5-7) 07/09/24 21:30 Ur Specific [place] 1.030 (1.005-1.030) 07/09/24 21:30 Urine Protein Negative (Negative) 07/09/24 21:30 Urine Glucose (UA) Negative (Normal) 07/09/24 21:30 Urine Ketones Negative (Negative) 07/09/24 21:30 Urine Blood Negative (Negative) 07/09/24 21:30 Urine Nitrate Positive (Negative) A 07/09/24 21: Urine Bilirubin Negative (Negative) 07/09/24 21:30 Urine Urobilinogen 0.2 mg/dL (Negative) 07/09/24 21:30 Ur Leukocyte Esterase 2+ (Negative) A 07/09/24 21:30 Urine RBC 0-2 /hpf (0-2) 07/09/24 21:30 Urine WBC 51-100 /hpf (0-5) H 07/09/24 21:30 Ur Squamous Epith Cells 0-5 /hpf (0-5) 07/09/24 21:30 Amorphous Sediment Not Reportable 07/09/24 21:30 Urine Bacteria Exceeds /hpf (NONE) 07/09/24 21:30 Hyaline Casts 0-4 /lpf H 07/09/24 21:30 Vitals Last Vital Signs Temp 98.2 F 07/13/24 16:15 Pulse 74 07/13/24 16:15 Resp 16 07/13/24 16:15 BP 124/72 07/13/24 16:15 Pulse Ox 92 07/13/24 16:15 O2 Del Method Room Air 07/13/24 16:11 O2 Flow Rate 2 07/13/24 00:00 Discharge Plan Discharge Patient Disposition: Home Condition: Stable Prescriptions: New aspirin 325 mg tablet 325 mg PO DAILY Qty: 90 0RF amlodipine 5 mg Tablet 10 mg PO DAILY Qty: 90 0RF cefdinir 300 mg capsule 300 mg PO BID 7 Days Qty: 14 0RF Continued azelastine 137 mcg (0.1 %) aerosol,spray 1 spray intranasal BID PRN (Reason: Allergy Symptoms) Rx Instructions: administer into each nostril levalbuterol tartrate [Xopenex HFA] 45 mcg/actuation HFA aerosol inhaler 2 inh inhalation Q6H PRN (Reason: Shortness Of Breath) Refresh Liquigel 1 % drops, liquid gel 2 drp ophthalmic (eye) BID atenolol 25 mg tablet 25 mg PO DAILY glucosamine sulfate [Glucosamine] 500 mg Tablet 500 mg PO DAILY vitamin [id number] acid 0.5-1 mg Tablet 1 tab PO DAILY ezetimibe-simvastatin [Vytorin 10-20] 10-20 mg Tablet 1 tab PO QPM Men's Daily Formula 400-20-300 mcg Tablet 1 tab PO DAILY esomeprazole magnesium 40 mg capsule,delayed release(DR/EC) 40 mg PO DAILY PRN (Reason: Acid Reflux) fexofenadine 180 mg tablet 180 mg PO DAILY fluticasone propionate 50 mcg/actuation spray,suspension 1 spray INTRANASAL DAILY metformin 500 mg tablet extended release 24 hr 1,000 mg PO QAM Discontinued aspirin [Adult Low Dose Aspirin] 81 mg tablet,delayed release (DR/EC) 81 mg PO DAILY nitrofurantoin monohyd/m-cryst 100 mg capsule 100 mg PO BID Discharge Orders: Discharge Order (Routine); Ordered 07/13/24 Ordered By: Joel Bartlett Other Ambulatory Orders: Physical Therapy Eval and Treat Outpatient (Order) Timeframe: 2 Weeks Facility: [facility] - Location: Physical Therapy Ordered By: Joel Bartlett MCT/Event Monitor 14 Days (Routine) Timeframe: 1 Day Facility: 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 If you do not hear from them by next Saturday, please contact them at the above number. ) Indira Taylor MD [Physician] - 1 week (Poss post circ CVA We have notified your physician's clinic of the need for a follow-up appointment to be scheduled. If you have not heard from them within the next 2 business days, please call them directly. ) Giovanni Lal MD [Physician] - 07/31/24 7:30 am (Vertigo, sinusitis, mastoiditis) Tamiko Louis DO [Primary Care Provider] - 07/16/24 2:45 pm Discharge Diet: Cardiac and Diabetic Discharge Activity: As per PT/OT instructions Patient Instructions: Aspirin (By mouth), Amlodipine (By mouth), Cefdinir (By mouth), Urinary Tract Infection in Men (GEN), Vertigo (GEN), Bradycardia (GEN), Opioid Safety Activity Restrictions/Additional Instructions: Please follow-up with your primary provider as well as with neurology to review reassess after episodes of vertigo, possible posterior circulation stroke. Please continue to optimize blood pressure control. Please discuss with your primary doctor and cardiology regarding consideration of astroke risk reduction related to atrial flutter, in the setting of history of gastrointestinal bleeding (blood in your stool). With concern for worsening gastrointestinal bleeding if blood thinner is not considered an option, consider referral for left atrial appendage closure device (like watchman or other). For now please increase aspirin to 325 mg. If you notice worsening bleeding, hold aspirin, seek medical attention. Countinue wound care/dressing for the right shoulder. Have our primary doctor reassess for continued healing. Discharge Attestations Time Spent in Discharge Care*: greater than 30 min Quality Metrics Clinical Quality Measures [ Cerebrovascular Accident { Contraindication to Antithrombotic: None; antithrombotic prescribed; Contraindication to Anticoagulation: Further opinion sought; Contraindication to Statin: None; Statin prescribed;}] Coding Level of Care Code 35846 Total time (in minutes) for Discharge: 55 Diagnoses Posterior circulation stroke I63.50 Vertigo R42 Shoulder abrasion S40.219A UTI (urinary tract infection) N39.0
== END 2024-07-13 16:55 | disposition home or self-care (01) | DRG 65 ==
LOC: ER 16:49 → MEDSURG 07-10 00:38
PROVIDERS: Family Medicine; Admitting Provider Internal Medicine; Emergency Provider Family Medicine; PCP Family Medicine; Visit Provider Internal Medicine
DX: I63.50 Cerebral infarction due to unspecified occlusion or stenosis of unspecified cerebral artery (principal); I48.92 Unspecified atrial flutter; N39.0 Urinary tract infection, site not specified; Z16.24 Resistance to multiple antibiotics; S40.219A Abrasion of unspecified shoulder, initial encounter; H93.11 Tinnitus, right ear; Z96.21 Cochlear implant status; Z79.899 Other long term (current) drug therapy; Z79.82 Long term (current) use of aspirin; Z88.8 Allergy status to other drugs, medicaments and biological substances; Z85.46 Personal history of malignant neoplasm of prostate; E11.9 Type 2 diabetes mellitus without complications; K21.9 Gastro-esophageal reflux disease without esophagitis; Z87.891 Personal history of nicotine dependence; I10 Essential (primary) hypertension; E78.5 Hyperlipidemia, unspecified; R33.9 Retention of urine, unspecified; E53.8 Deficiency of other specified B group vitamins; H70.93 Unspecified mastoiditis, bilateral; J32.8 Other chronic sinusitis; R00.1 Bradycardia, unspecified; E78.00 Pure hypercholesterolemia, unspecified; B96.89 Other specified bacterial agents as the cause of diseases classified elsewhere
CPT/HCPCS: 36415; 36416; 70450; 70486; 70496; 70498; 71045; 80048; 80053; 80061; 81001; 82607; 82962; 83036; 85025; 87040; 87077; 87086; 87186; 92523; 92610; 93005; 96372; 97112; 97116; 97161; 97165; 97535; C8929; G0378; J0696; J1650; J1815; J7030; J8597

== ENCOUNTER 2024-08-15 07:59 | Inpatient (IN) | payer MEDICARE, OTHER, SELFPAY ==
[2024-08-15] VITALS (8 sets, daily range): BP systolic 100–176; BP diastolic 56–91; PULSE 63–81; RESP 16–17; TEMP 36.7–37.1; O2SAT 88–95; BMI 24.3
--- NOTE | 2024-08-15 08:03 | XRR_ITS ---
PROCEDURE INFORMATION: Exam: XR Left Elbow Exam date and time: 08/15/2024 8:48 AM Age: 89 years old Clinical indication: Injury or trauma; Fall; Blunt trauma (contusions or hematomas); Elbow; Left TECHNIQUE: Imaging protocol: Radiologic exam of the left elbow. Views: 3 or more views. COMPARISON: NM bone scan whole body* [id number] 01/28/2020 8:00 AM FINDINGS: Bones/joints: There are mild degenerative changes of the left elbow. No acute fracture or dislocation is noted. No focal lytic or sclerotic lesions are seen. No joint effusion Soft tissues: Normal. XR/XR elbow LT min 3V* [id number] IMPRESSION: No acute osseous abnormality
--- NOTE | 2024-08-15 08:03 | XRR_ITS ---
PROCEDURE INFORMATION: Exam: XR Left Hip Exam date and time: 08/15/2024 8:48 AM Age: 89 years old Clinical indication: Injury or trauma; Fall; Blunt trauma (contusions or hematomas); Left; Hip TECHNIQUE: Imaging protocol: Radiologic exam of the left hip. Views: 2 or 3 views hip with pelvis when performed. COMPARISON: CT hip LT wo con* [id number] 08/15/2024 8:40 AM FINDINGS: Bones/joints: There are subtle areas of lucency involving the left inferior pubic ramus near the pubic symphysis and medial left acetabulum. Alignment of the hip is within normal limits. There is diffuse osteopenia. Soft tissues: Unremarkable. XR/XR hip LT 2-3V wo/w pel* [id number] IMPRESSION: Subtle areas of lucency involving the left inferior pubic ramus and medial left acetabulum which may reflect nondisplaced fractures however artifact is not excluded. Correlation with CT of the left hip is suggested
--- NOTE | 2024-08-15 08:03 | CTR_ITS ---
PROCEDURE INFORMATION: Exam: CT Left Lower Extremity, Hip Exam date and time: 08/15/2024 8:40 AM Age: 89 years old Clinical indication: Injury or trauma; Fall; Blunt trauma; Hip; Left TECHNIQUE: Imaging protocol: CT of the left lower extremity without contrast was performed. Exam focused on the hip. Radiation optimization: All CT scans at this facility use at least one of these dose optimization techniques: automated exposure control; mA and/or kV adjustment per patient size (includes targeted exams where dose is matched to clinical indication); or iterative reconstruction. COMPARISON: OR bone scan whole body* [id number] 01/28/2020 8:00 AM RADIATION DOSE METRICS: Total DLP (mGy-cm): 282.57 FINDINGS: Bones/joints: There is an acute nondisplaced fracture involving the left acetabulum with fracture lines extending to the medial, posterior and anterior cortices. No acute femoral fracture. There is osteopenia noted. No focal lytic or sclerotic lesions. There is also an acute nondisplaced fracture of the left inferior pubic ramus near the pubic symphysis. There is a small hip joint effusion. Soft tissues: There is mild enlargement of the left obturator musculature with a small extraperitoneal hematoma superficial to the obturator muscle which measures 2.2 cm in thickness by 7 cm AP. There is a ybuop-vl-wdvnkxje hematoma within the subcutaneous soft tissues of the left hip superficial to the greater trochanter which measures 6.[address]/CT hip LT wo con* [id number] IMPRESSION: 1. Mildly comminuted nondisplaced fractures of the left acetabulum and left inferior pubic ramus with mild hemorrhage within the left obturator musculature and extraperitoneal hemorrhage within the left pelvis. 2. Pdher-yd-ebzzxgoy soft tissue hematoma superficial to the greater trochanter. 3. No evidence of acute femoral fracture.
--- NOTE | 2024-08-15 08:03 | CTR_ITS ---
PROCEDURE INFORMATION: Exam: CT Head Without Contrast Exam date and time: 08/15/2024 8:36 AM Age: 89 years old Clinical indication: Injury or trauma; Fall; Blunt trauma (contusions or hematomas); Without loss of consciousness; Prior surgery; Surgery date: 6+ months; Surgery type: Cochlear implant? TECHNIQUE: Imaging protocol: Computed tomography of the head without contrast. Radiation optimization: All CT scans at this facility use at least one of these dose optimization techniques: automated exposure control; mA and/or kV adjustment per patient size (includes targeted exams where dose is matched to clinical indication); or iterative reconstruction. COMPARISON: CT head wo con* [id number] 07/10/2024 10:00 AM RADIATION DOSE METRICS: Total DLP (mGy-cm): 978.9 FINDINGS: Brain: Normal. No hemorrhage. Unremarkable white matter. No mass effect. Cerebral ventricles: No ventriculomegaly. Paranasal sinuses: Mucosal thickening is noted within ethmoid air cells and maxillary antra. There is complete opacification of the sphenoid sinuses. Thickening of the bang of the sinuses indicates chronic disease. Mastoid air cells: The patient is post left cochlear implant placement. Fluid opacifies the mastoid air cells on the left. Orbital cavities: The patient is post bilateral cataract surgery. Bones: Post partial left mastoidectomy related to cochlear implant placement. No acute fracture. Soft tissues: Unremarkable. CT/CT head wo con* [id number] IMPRESSION: No acute intracranial process.
--- NOTE | 2024-08-15 08:03 | CTR_ITS ---
PROCEDURE INFORMATION: Exam: CT Cervical Spine Without Contrast Exam date and time: 08/15/2024 8:36 AM Age: 89 years old Clinical indication: Injury or trauma; Fall; Blunt trauma TECHNIQUE: Imaging protocol: Computed tomography of the cervical spine without contrast. Radiation optimization: All CT scans at this facility use at least one of these dose optimization techniques: automated exposure control; mA and/or kV adjustment per patient size (includes targeted exams where dose is matched to clinical indication); or iterative reconstruction. COMPARISON: CT angio headneck* [id number] 07/09/2024 4:18 PM RADIATION DOSE METRICS: Total DLP (mGy-cm): 1099 FINDINGS: Bones: The bones are osteopenic. There is no evidence for acute cervical fracture. There is a 3 mm probable degenerative anterior positioning of C4 on C5. Spondylosis is noted with disc osteophyte, uncovertebral spurring and facet arthropathy at C5-C6. Lungs: Lung apices are normal. Soft tissues: Unremarkable. CT/CT cervical spin wo con* [id number] IMPRESSION: No evidence for acute cervical fracture.
--- NOTE | 2024-08-15 08:04 | W.ED.FALL ---
HPI - Fall General: Chief Complaint: Extremity Injury, Lower Stated Complaint: left hip pain s/p fall Time Seen by Provider: 08/15/24 08:00 Source: patient and EMS Mode of arrival: EMS Limitations: no limitations History of Present Illness: 89-year-old male states he tripped and fell this morning at home. States he had hit his head also on his left hip he has some left hip pain denies loss conscious has some slight neck pain as well he does have skin tears left elbow he was able to bear weight was having [place] walking. Associated symptoms-after fall: Reports headache(s) and neck pain; Denies abdominal pain or chest pain Related Data Home Medications Medication Instructions Recorded Confirmed ezetimibe 10 mg-simvastatin 20 mg 1 tab PO QPM 10/30/19 07/10/24 tablet (Vytorin) glucosamine sulfate 500 mg tablet 500 mg PO DAILY 10/30/19 07/10/24 (Glucosamine) drtpfkli-jrsvezqa-rezqr acid 400 1 tab PO DAILY 10/30/19 07/10/24 mcg-vit K 20 mcg-lycop 300 mcg tablet (Men's Daily Formula) vitamin B12 0.5 mg-folic acid 1 mg 1 tab PO DAILY 10/30/19 07/10/24 tablet atenolol 25 mg tablet 25 mg PO DAILY 12/22/20 07/10/24 azelastine 137 mcg (0.1 %) nasal 1 spray intranasal BID PRN Allergy 06/13/21 07/10/24 spray Symptoms carboxymethylcellulose sodium 1 % 2 drp ophthalmic (eye) BID 06/13/21 07/10/24 eye liquid gel drops (Refresh Liquigel) levalbuterol tartrate 45 2 inh inhalation Q6H PRN Shortness 06/13/21 07/10/24 mcg/actuation aerosol inhaler Of Breath (Xopenex HFA) esomeprazole magnesium 40 mg 40 mg PO DAILY PRN Acid Reflux 03/08/22 07/10/24 capsule,delayed release fexofenadine 180 mg tablet 180 mg PO DAILY 07/10/24 07/10/24 fluticasone propionate 50 1 spray intranasal DAILY 07/10/24 07/10/24 mcg/actuation nasal spray,suspension metformin 500 mg tablet,extended 1,000 mg PO QAM 07/10/24 07/10/24 release 24 hr Previous Rx's Medication Instructions Recorded amlodipine 5 mg tablet 10 mg (2 x 5 mg) PO DAILY #90 tabs 07/13/24 aspirin 325 mg tablet 325 mg PO DAILY #90 tabs 07/13/24 Allergies Allergy/AdvReac Type Severity Reaction Status Date / Time adhesive Allergy Intermediate ALGY-Rash Unverified 07/09/24 18:39 ibuprofen Allergy ALGY-Rash Verified 07/09/24 13:24 Review of Systems Const: Denies: fever(s), chills, body aches or change in appetite ENMT: Denies: throat pain or dental pain Card: Denies: chest pain Resp: Denies: dyspnea GI: Denies: abdominal pain, nausea, vomiting or diarrhea Musc: Reports: neck pain and extremity pain; Denies: back pain Skin/Breast: Denies: rash Neuro: Reports: headache(s) PFSH ED PFSH: Medical History Prostate cancer History of benign prostatic hyperplasia Diabetes 1.5, managed as type 2 History of atrial flutter Hiatal hernia with GERD Degenerative arthritis Cochlear hearing loss Urinary retention Surgical History H/O circumcision History of cochlear implant History of rhinoplasty Hx of vasectomy History of tonsillectomy and adenoidectomy History of amputation of finger of right hand Hx of bilateral cataract extraction Hx of umbilical hernia repair S/P knee replacement Family History Family/Other Diabetes Dementia Cancer Breast cancer Mother , at age 37 Tuberculosis Lung disease Tuberculosis Father , at age 79 CAD (coronary artery disease) Denies family history of Clotting disorder Hyperlipidemia Psychiatric illness Chronic kidney disease (CKD) Suicide Anesthesia complication Bleeding disorder Hypertension Stroke Social History Smoking and tobacco/nicotine status: former use of tobacco/nicotine (Smoked a pipe for 40 years) Alcohol intake: current Alcohol intake frequency: few times a month Substance/Drug Use: unknown Adopted: No Caregiver/support person: No Lives independently: No Household members: spouse Marital status: Current occupational status: retired Current gender identity: Male Physical Exam Const: COMMON NORMALS: no acute distress, patient oriented x3 and healthy appearing HENMT: OTHER: Contusion to left forehead Eye: COMMON NORMALS: Equal, round and reactive pupils present and EOMs intact bilaterally PUPIL: Yes Equal, round and reactive pupils present Neck/C-Spine: COMMON NORMALS: full ROM and supple Chest: COMMONS NORMALS: normal inspection of the chest and normal palpation of entire chest wall Resp: COMMON NORMALS: normal respiratory effort, No retractions, No use of accessory muscles and clear to auscultation bilaterally AUSCULTATION: clear to auscultation bilaterally Cardio: COMMON NORMALS: regular rate, regular rhythm and No murmurs present (Cardio) RATE: regular rate RHYTHM: regular rhythm GI: COMMON NORMALS: Normal to inspection, nondistended, normoactive bowel sounds present, Soft to palpation, non-tender and no masses PALPATION: Yes Soft to palpation Extremity: COMMON NORMALS: full ROM NARRATIVE EXTREMITY EXAM: Tenderness noted to left hip no shortening or rotation has a skin tear to left elbow Neuro: COMMON NORMALS: patient oriented x3, moves all extremities and no focal motor deficits Psych: COMMON NORMALS: mental status grossly normal, Normal thought process present and cooperative THOUGHT PROCESS: Normal thought process present Skin: COMMON NORMALS: no rashes or lesions noted GENERAL SKIN EXAM: no rashes or lesions noted Course Vital Signs: Vital signs: Vital Signs Temperature 98.1 F 08/15/24 08:02 Pulse Rate 68 08/15/24 10:08 Respiratory Rate 16 08/15/24 08:02 Blood Pressure 100/56 08/15/24 10:08 Pulse Oximetry 94 08/15/24 10:08 Oxygen Delivery Me thod Room Air 08/15/24 10:08 MDM - Fall Medical Decision Making Patient presents here with a left acetabular fracture from a fall I did speak to trauma Ortho at [facility] who reviewed images with him he feels this is nonoperative did discuss with the patient as well as admit at this time he does have a hematoma his hemoglobin here is normal no anemia. Medical Records I reviewed the patient's medical records. Lab Data I reviewed the patient's lab results. 08/15/24 09:39 08/15/24 09:39 Radiology Impressions Cervical Spine CT 08/15/24 08:03 IMPRESSION: No evidence for acute cervical fracture. Elbow X-Ray 08/15/24 08:03 IMPRESSION: No acute osseous abnormality Head CT 08/15/24 08:03 IMPRESSION: No acute intracranial process. Hip CT 08/15/24 08:03 IMPRESSION: 1. Mildly comminuted nondisplaced fractures of the left acetabulum and left inferior pubic ramus with mild hemorrhage within the left obturator musculature and extraperitoneal hemorrhage within the left pelvis. 2. Denoo-bc-ajkyzjhy soft tissue hematoma superficial to the greater trochanter. 3. No evidence of acute femoral fracture. Hip/Pelvis X-Ray 08/15/24 08:03 IMPRESSION: Subtle areas of lucency involving the left inferior pubic ramus and medial left acetabulum which may reflect nondisplaced fractures however artifact is not excluded. Correlation with CT of the left hip is suggested Laboratory Results WBC 13.97 10^3/uL (3.29-11.43) H 08/15/24 09:39 RBC 4.22 10^6/uL (3.85-5.65) 08/15/24 09:39 Hgb 12.50 g/dL (11.27-16.99) 08/15/24 09:39 Hct 39.4 % (37-53) 08/15/24 09:39 MCV 93.4 fl (82-101) 08/15/24 09:39 MCH 29.6 pg (27-33) 08/15/24 09:39 MCHC 31.7 g/dL (30-55) 08/15/24 09:39 RDW 13.9 % (12.1-15.1) 08/15/24 09:39 Plt Count 239 10^3/cmm (157-399) 08/15/24 09:39 MPV 9.7 fL (7.4-10.4) 08/15/24 09:39 Neut % (Auto) 84.3 % 08/15/24 09:39 Lymph % (Auto) 5.9 % 08/15/24 09:39 Andrew % (Auto) 8.0 % 08/15/24 09:39 Eos % (Auto) 0.5 % 08/15/24 09:39 Baso % (Auto) 0.7 % 08/15/24 09:39 Neut # (Auto) 11.76 10^3/uL (1.8-7.7) H 08/15/24 09:39 Lymph # (Auto) 0.8 10^3/uL (0.8-4.8) 08/15/24 09:39 Andrew # (Auto) 1.1 10^3/uL (0.2-0.9) H 08/15/24 09:39 Eos # (Auto) 0.1 10^3/uL (0.0-0.8) 08/15/24 09:39 Baso # (Auto) 0.1 10^3/uL (0.0-0.1) 08/15/24 09:39 Nucleated RBC % (auto) 0 % 08/15/24 09:39 Nucleated RBCs # 0.0 /100WBC 08/15/24 09:39 PT 13.40 SECONDS (12.1-14.9) 08/15/24 09:39 INR 0.99 (0.8-1.2) 08/15/24 09:39 Sodium 140 mmol/L (136-145) 08/15/24 09:39 Potassium 4.4 mmol/L (3.5-5.1) 08/15/24 09:39 Chloride 103 mmol/L (98-107) 08/15/24 09:39 Carbon Dioxide 25 mmol/L (22-29) 08/15/24 09:39 Anion Gap 16.4 (5-19) 08/15/24 09:39 BUN 20 mg/dL (8-23) 08/15/24 09:39 Creatinine 0.7 mg/dL (0.7-1.2) 08/15/24 09:39 GFR Calculation Not Reportable 08/15/24 09:39 Glucose 159 mg/dL (65-115) H 08/15/24 09:39 Calculated Osmolality 296 mOsm/kg (285-295) H 08/15/24 09:39 Calcium 9.0 mg/dL (8.5-10.5) 08/15/24 09:39 Total Bilirubin 1.2 mg/dL (0.15-1.2) 08/15/24 09:39 AST 21 U/L (0-40) 08/15/24 09:39 ALT 14 U/L (0-41) 08/15/24 09:39 Alkaline Phosphatase 95 U/L (40-130) 08/15/24 09:39 Total Protein 7.2 g/dL (6.6-8.7) 08/15/24 09:39 Albumin 4.1 g/dL (3.5-5.2) 08/15/24 09:39 Globulin 3.1 g/dL (1.3-4.6) 08/15/24 09:39 Lipase 24 U/L (13-60) 08/15/24 09:39 All radiology interpretation(s) finalized by discharge Discharge Plan Discharge Patient Disposition: Admitted As Inpatient Clinical Impression: Fall, Acetabulum fracture, left Condition: Stable Prescriptions: No Action azelastine 137 mcg (0.1 %) aerosol,spray 1 spray intranasal BID PRN (Reason: Allergy Symptoms) Rx Instructions: administer into each nostril levalbuterol tartrate [Xopenex HFA] 45 mcg/actuation HFA aerosol inhaler 2 inh inhalation Q6H PRN (Reason: Shortness Of Breath) Refresh Liquigel 1 % drops, liquid gel 2 drp ophthalmic (eye) BID atenolol 25 mg tablet 25 mg PO DAILY glucosamine sulfate [Glucosamine] 500 mg Tablet 500 mg PO DAILY vitamin Q71-guusm acid 0.5-1 mg Tablet 1 tab PO DAILY ezetimibe-simvastatin [Vytorin 10-20] 10-20 mg Tablet 1 tab PO QPM Men's Daily Formula 400-20-300 mcg Tablet 1 tab PO DAILY esomeprazole magnesium 40 mg capsule,delayed release(DR/EC) 40 mg PO DAILY PRN (Reason: Acid Reflux) fexofenadine 180 mg tablet 180 mg PO DAILY fluticasone propionate 50 mcg/actuation spray,suspension 1 spray INTRANASAL DAILY metformin 500 mg tablet extended release 24 hr 1,000 mg PO QAM aspirin 325 mg tablet 325 mg PO DAILY Qty: 90 0RF amlodipine 5 mg Tablet 10 mg PO DAILY Qty: 90 0RF Referrals: Tamiko Louis DO [Primary Care Provider] - Coding Level of Care Code ED Director Selection And Administration for Pierre Greer
--- NOTE | 2024-08-15 09:01 | PC.NURSE ---
assumed care of patient at 0900
[2024-08-15 09:44] LABS: Basophils # 0.1 10^3/uL (0.0-0.1); Basophils % 0.7 %; Eosinophils # 0.1 10^3/uL (0.0-0.8); Eosinophils % 0.5 %; Hematocrit 39.4 % (37-53); Lymphocytes # 0.8 10^3/uL (0.8-4.8); Lymphocytes % 5.9 %; Mean Corpuscular HGB Conc 31.7 g/dL (30-55); Mean Corpuscular Hemoglobin 29.6 pg (27-33); Mean Corpuscular Volume 93.4 fl (82-101); Mean Platelet Volume 9.7 fL (7.4-10.4); Monocytes # 1.1 10^3/uL (0.2-0.9); Neutrophils # 11.76 10^3/uL (1.8-7.7); Neutrophils % 84.3 %; Nucleated Red Blood Cells % 0 %; Platelet Count 239 10^3/cmm (157-399); Red Blood Count 4.22 10^6/uL (3.85-5.65); Red Cell Distribution Width 13.9 % (12.1-15.1); White Blood Count 13.97 10^3/uL (3.29-11.43)
[2024-08-15 09:56] LABS: INR 0.99 (0.8-1.2)
[2024-08-15 10:02] LABS: Alanine Aminotransferase 14 U/L (0-41); Albumin Level 4.1 g/dL (3.5-5.2); Alkaline Phosphatase 95 U/L (40-130); Anion Gap 16.4 (5-19); Aspartate Amino Transferase 21 U/L (0-40); Blood Urea Nitrogen 20 mg/dL (8-23); Carbon Dioxide 25 mmol/L (22-29); Chloride 103 mmol/L (98-107); Creatinine Clr Calc Pharmacy 78.2418; Globulin 3.1 g/dL (1.3-4.6); Glucose 159 mg/dL (65-115); Lipase 24 U/L (13-60); Osmolality Calculated 296 mOsm/kg (285-295); Potassium 4.4 mmol/L (3.5-5.1); Sodium 140 mmol/L (136-145); Total Bilirubin 1.2 mg/dL (0.15-1.2); Total Protein 7.2 g/dL (6.6-8.7)
--- NOTE | 2024-08-15 10:02 | PM.HP ---
Providers/Chief Complaint Primary Care Provider: Tamiko Louis DO Chief Complaint: left hip pain s/p fall History of Present Illness Omar Daniel is a 89 year old male With past medical history of prostate cancer, BPH, and diabetes, atrial fibrillation, hiatal hernia with GERD, degenerative arthritis, urinary retention presented to the hospital today after he fell secondary to tripping at home in the morning. He hit his head and fell on his left side and hurt his hip. He is complaining of left hip pain. Denied loss of consciousness. Does complain of mild neck pain as well. In the ER patient was noted to have skin tears left elbow. Initially he was bearing weight however having difficulty walking secondary to pain. Denies chest pain, shortness of breath, abdominal pain, nausea vomiting diarrhea. ER course: 158/80, pulse 63, respirate 16, temp 98.1, saturating 93% on room air. Cervical spine CT was done which showed no acute cervical fracture elbow x-ray showed no acute osseous abnormality CT head showed no acute intracranial process, CT hip shows mild comminuted nondisplaced fractures of the left acetabulum and left inferior pubic rami with mild hemorrhage within the left obturator musculature and extraperitoneal hemorrhage within the left pelvis. Small to moderate soft tissue hematoma superficial to greater trochanter, no evidence of acute femoral fracture. Hip x-ray showed subtle areas of lucency involving the left inferior pubic rami and medial as left acetabulum which may reflect nondisplaced fractures however artifact is not excluded correlation with CT of the left hip is suggested. Patient did have 1 instance of low blood pressure 60/40 however unsure if that was an accurate reading?. Patient was placed in Trendelenburg position and given a normal saline bolus. Patient responded really well to diet and repeat blood pressure was 170/101. CT abdomen pelvis was also done by ER physician which ruled out acute bleed. Patient blood pressure has been stable however since that bolus. Case was discussed with trauma surgeon in [place] who recommended medical management at this time and to keep an eye on the hemoglobin. Patient is not a candidate for surgery at this time. Orthopedic surgery at [facility] was consulted. ER doctor discussed case with Dr. Peralta who will see patient in consultation. Patient to be nonweightbearing at this time. May need [place] [facility] [place]. Medications/Allergies Home Medications Medication Instructions Recorded Confirmed Last Taken Type ezetimibe 10 mg-simvastatin 20 mg 1 tab PO QPM 10/30/19 07/10/24 07/08/24 History tablet (Vytorin) glucosamine sulfate 500 mg tablet 500 mg PO DAILY 10/30/19 07/10/24 07/09/24 History (Glucosamine) jjiakfop-pwmewevl-wlmmm acid 400 1 tab PO DAILY 10/30/19 07/10/24 07/09/24 History mcg-vit K 20 mcg-lycop 300 mcg tablet (Men's Daily Formula) vitamin B12 0.5 mg-folic acid 1 mg 1 tab PO DAILY 10/30/19 07/10/24 07/09/24 History tablet atenolol 25 mg tablet 25 mg PO DAILY 12/22/20 07/10/24 07/09/24 History azelastine 137 mcg (0.1 %) nasal 1 spray intranasal BID PRN Allergy 06/13/21 07/10/24 07/09/24 History spray Symptoms carboxymethylcellulose sodium 1 % 2 drp ophthalmic (eye) BID 06/13/21 07/10/24 07/09/24 History eye liquid gel drops (Refresh Liquigel) levalbuterol tartrate 45 2 inh inhalation Q6H PRN Shortness 06/13/21 07/10/24 Unknown History mcg/actuation aerosol inhaler Of Breath (Xopenex HFA) esomeprazole magnesium 40 mg 40 mg PO DAILY PRN Acid Reflux 03/08/22 07/10/24 07/09/24 History capsule,delayed release fexofenadine 180 mg tablet 180 mg PO DAILY 07/10/24 07/10/24 07/09/24 History fluticasone propionate 50 1 spray intranasal DAILY 07/10/24 07/10/24 07/09/24 History mcg/actuation nasal spray,suspension metformin 500 mg tablet,extended 1,000 mg PO QAM 07/10/24 07/10/24 07/09/24 History release 24 hr amlodipine 5 mg tablet 10 mg (2 x 5 mg) PO DAILY #90 tabs 07/13/24 Unknown Rx aspirin 325 mg tablet 325 mg PO DAILY #90 tabs 07/13/24 Unknown Rx Allergies Allergy/AdvReac Type Severity Reaction Status Date / Time adhesive Allergy Intermediate ALGY-Rash Verified 08/15/24 12:26 ibuprofen Allergy ALGY-Rash Verified 08/15/24 12:26 PFSH Acute PFSH: Medical History (Updated 08/15/24 @ 14:32 by Mimi Aguilar MD) Prostate cancer History of benign prostatic hyperplasia Diabetes 1.5, managed as type 2 History of atrial flutter Hiatal hernia with GERD Degenerative arthritis Cochlear hearing loss Urinary retention Surgical History H/O circumcision History of cochlear implant History of rhinoplasty Hx of vasectomy History of tonsillectomy and adenoidectomy History of amputation of finger of right hand Hx of bilateral cataract extraction Hx of umbilical hernia repair S/P knee replacement Family History Family/Other Diabetes Dementia Cancer Breast cancer Mother , at age 37 Tuberculosis Lung disease Tuberculosis Father , at age 79 CAD (coronary artery disease) Denies family history of Clotting disorder Hyperlipidemia Psychiatric illness Chronic kidney disease (CKD) Suicide Anesthesia complication Bleeding disorder Hypertension Stroke Social History Smoking and tobacco/nicotine status: former use of tobacco/nicotine (Smoked a pipe for 40 years) Alcohol intake: current Alcohol intake frequency: few times a month Substance/Drug Use: unknown Adopted: No Caregiver/support person: No Lives independently: No Household members: spouse Marital status: Current occupational status: retired Current gender identity: Male Vitals/I&O/Wt Last Vital Signs Temp 98.1 F 08/15/24 08:02 Pulse 63 08/15/24 08:02 Resp 16 08/15/24 08:02 BP 158/80 08/15/24 08:02 Pulse Ox 93 08/15/24 08:02 O2 Del Method Room Air 08/15/24 08:02 Weight last 48 hrs Weight 90.718 kg Physical Exam Narrative: General: Alert oriented x3, patient seen laying in bed appearing comfortable at this time. HEENT: Normocephalic, atraumatic, EOMI, breathing room air. Cardio: Regular rate rhythm, normal S1-S2, Respiratory: Good bilateral air entry, no wheezes no rhonchi appreciated GI: Abdomen soft, nontender, nondistended, bowel sounds + Behavior: Appropriate and cooperative Extremities: Do acknowledge skin lacerations by left elbow area. Mild bruising present. Left hip area mildly swollen, no ecchymosis seen. Data 08/15/24 15:32 08/15/24 09:39 A&P Assessment and plan (1) Acetabulum fracture, left: (2) Fall: (3) History of atrial flutter: (4) Malignant neoplasm of prostate: (5) Hematoma: (6) Fracture of left inferior pubic ramus: Qualifiers: Encounter type: initial encounter Fracture type: closed Qualified Code(s): S32.592A - Other specified fracture of left pubis, initial encounter for closed fracture Plan #Mildly comminuted nondisplaced fracture of left acetabulum left inferior pubic ramus with mild hemorrhage #Softer moderate soft tissue hematoma superficial to greater trochanter #Mechanical fall #Leukocytosis #Diabetes mellitus #Advanced age #GERD #History of atrial fibrillation #History of urinary retention #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 He tripped. Leukocytosis most likely secondary to stress response. Patient was recently admitted for dizziness that remained persistent in the morning after he woke up. Patient was seen by neurology and CT head did not show an acute CVA and patient was not a candidate for MRI due to cochlear implant. There was concern for posterior circulation stroke. Patient's medications were adjusted and was placed on aspirin [address] head and neck did not show any significant stenosis. Echocardiogram bubble study showed normal ejection fraction. He was set up with an event monitor to further assess extent of bradycardia and flutter. 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 He was sent home on aspirin 325 daily. Patient was also treated for UTI with ceftriaxone. Urine culture grew Citrobacter. Patient was sent to rehab there after however he preferred to go with outpatient physical therapy. He was discharged home in stable condition. ? Patient now presents to the hospital which he says was a mechanical fall after he tripped. Does have a history of flutter versus bradycardia at which point his atenolol was reduced last visit. He is wearing a event monitor x 30 days that was given to him by [facility]. -Will manage patient's pain. ? Will continue to place on telemetry for the above. ? He does have a nondisplaced fracture of left acetabulum left inferior pubic ramus with mild hemorrhage. There is also hematoma superficial to greater trochanter present. Continue to monitor hemoglobin will check CBC every 12 hours at this time. ? Orthopedic surgery consulted. Await recommendations. ? Patient was only on 325 aspirin at home. I will continue that at this point. ? Leukocytosis most likely reactive ? Will consult case management for potential placement secondary to nonweightbearing status. ? Blood pressure soft this morning 100/56. Will hold home antihypertensives amlodipine, atenolol at this time. ? Patient takes metformin at home for his diabetes. I will hold at this time and continue to monitor blood sugars. Will hold off on adding any sliding scale insulin at this time. ? He recently had an echo last month will not repeat one at this time. Full code DVT prophylaxis: Hold off on subcu heparin at this time secondary to hematoma. Will use SCDs. Attestations Medical Necessity Statement*: Greater than 2 midnight stay for management of hematoma secondary to fall, acetabulum inferior rami pubic fracture. Patient may require [place] [facility] [place]. Diagnoses Acetabulum fracture, left S32.402A Fall W19.XXXA History of atrial flutter Z86.79 Malignant neoplasm of prostate C61 Hematoma T14.8XXA Closed fracture of left inferior pubic ramus, initial encounter S32.592A Encounter type: initial encounter Fracture type: closed
[2024-08-15] MEDS: sodium chloride 0.9% 1,000 ML 75 ML IV (11:00)
--- NOTE | 2024-08-15 11:18 | CTR_ITS ---
PROCEDURE INFORMATION: Exam: CT Abdomen And Pelvis With Contrast Exam date and time: 08/15/2024 11:46 AM Age: 89 years old Clinical indication: Injury or trauma; Fall; Blunt; Generalized TECHNIQUE: Imaging protocol: Computed tomography of the abdomen and pelvis with contrast. Radiation optimization: All CT scans at this facility use at least one of these dose optimization techniques: automated exposure control; mA and/or kV adjustment per patient size (includes targeted exams where dose is matched to clinical indication); or iterative reconstruction. Contrast material: OMNIPAQUE 350; Contrast volume: 100 ml; Contrast route: INTRAVENOUS (IV); COMPARISON: CR (PELVIS, ) 08/15/2024 8:48 AM RADIATION DOSE METRICS: Total DLP (mGy-cm): 694.64 FINDINGS: Liver: There are well-circumscribed low-density lesions within the right and left lobes of the liver, suggestive of hepatic cysts. There is a 1.2 cm enhancing lesion within the right lobe of the liver, similar to the prior study of 01/28/2024 suspicious for a hemangioma Gallbladder and biliary ducts: Note is made of cholelithiasis. The gallbladder is nondistended. No significant biliary ductal dilatation. Pancreas: Normal. No ductal dilation. Spleen: Normal. No splenomegaly. Adrenal glands: Normal. No mass. Kidneys and ureters: There is right upper pole renal scarring. No hydronephrosis. No discrete renal mass.. No hydronephrosis. Stomach and bowel: There is a large hiatal hernia with nearly the entire stomach within the left lower hemithorax. Fyjbsxnt-ay-ssvvqy retained fecal material is noted throughout the colon. Note is made of colonic diverticulosis without acute diverticulitis. Appendix: No evidence of appendicitis. Intraperitoneal space: Unremarkable. No free air. No significant fluid collection. Vasculature: Moderate atherosclerotic vascular calcifications. No abdominal aortic aneurysm. Lymph nodes: Unremarkable. No enlarged lymph nodes. Urinary bladder: There is thickening and trabeculation of the bladder wall with multiple diverticula noted. Reproductive: The prostate gland is mildly enlarged. Bones/joints: There is diffuse osteopenia. Mild degenerative changes are noted. There are acute nondisplaced fractures involving the left acetabulum and left pubic bone, further discussed in the CT left hip report, dictated separately. Soft tissues: There are postsurgical changes of ventral hernia repair CT/CT abdomen pelvis w con* [id number] IMPRESSION: 1. Acute nondisplaced fractures of the left acetabulum and left pubic bone, further discussed in the CT left hip report, dictated separately. 2. No evidence of major abdominal or pelvic visceral injury, hemoperitoneum, or lumbar compression fracture 3. Constipation 4. Cholelithiasis 5. Thickening and trabeculation of the bladder wall with multiple diverticula suspicious for sequelae of chronic bladder outlet obstruction
[2024-08-15 11:35] LABS: Hematocrit 34.4 % (37-53)
[2024-08-15] MEDS: iohexol 350 mg/mL 500 mL Btl (per mL) IV (11:50)
--- NOTE | 2024-08-15 14:22 | P.CONIM_ITS ---
Providers/Reason For Consult 2 Consulting Physician/Specialty*: Mimi Aguilar MD Reason for Consult*: Left acetabular fracture with superior and inferior pubic ramus. Requesting Physician: Dr. Silvino Roberts Attending Physician: Adrianne Willett MD Primary Care Provider: Tamiko Louis DO History of Present Illness History of Present Illness Omar Daniel is a 89 year old male who was in his usual state of health when he tripped in his home this morning and fell onto his left side. The patient presented complaining of hip pain and also although he denied loss of consciousness, he did hit his head during the fall. He had mild neck pain and was worked up for this. Once in the emergency department, the patient was evaluated. The trauma surgeon in [place] also reviewed the case as there was acetabular fracture. I discussed this case with the emergency room physician. Expressing that there was not further treatment available here such as either interventional radiology or orthopedic fixation of an acetabular fracture. All agreed that observation was the appropriate treatment at this time. The patient was admitted to the medical service to be followed. The patient's past medical history is complicated by prostate cancer, diabetes, atrial fibrillation, hiatal hernia with GERD, degenerative osteoarthritis, and urinary retention. Review of Systems 2 Const: Denies: fever(s), chills, body aches or change in appetite ENMT: Denies: throat pain or dental pain Card: Denies: chest pain Resp: Denies: dyspnea GI: Denies: abdominal pain, nausea, vomiting or diarrhea Musc: Reports: neck pain and extremity pain; Denies: back pain Skin/Breast: Denies: rash Neuro: Reports: headache(s) Medications/Allergies Home Medications Medication Instructions Recorded Confirmed Last Taken Type ezetimibe 10 mg-simvastatin 20 mg 1 tab PO QPM 10/30/19 07/10/24 07/08/24 History tablet (Vytorin) glucosamine sulfate 500 mg tablet 500 mg PO DAILY 10/30/19 07/10/24 07/09/24 History (Glucosamine) acuvbxss-ntufzads-sleda acid 400 1 tab PO DAILY 10/30/19 07/10/24 07/09/24 History mcg-vit K 20 mcg-lycop 300 mcg tablet (Men's Daily Formula) vitamin B12 0.5 mg-folic acid 1 mg 1 tab PO DAILY 10/30/19 07/10/24 07/09/24 History tablet atenolol 25 mg tablet 25 mg PO DAILY 12/22/20 07/10/24 07/09/24 History azelastine 137 mcg (0.1 %) nasal 1 spray intranasal BID PRN Allergy 06/13/21 07/10/24 07/09/24 History spray Symptoms carboxymethylcellulose sodium 1 % 2 drp ophthalmic (eye) BID 06/13/21 07/10/24 07/09/24 History eye liquid gel drops (Refresh Liquigel) levalbuterol tartrate 45 2 inh inhalation Q6H PRN Shortness 06/13/21 07/10/24 Unknown History mcg/actuation aerosol inhaler Of Breath (Xopenex HFA) esomeprazole magnesium 40 mg 40 mg PO DAILY PRN Acid Reflux 03/08/22 07/10/24 07/09/24 History capsule,delayed release fexofenadine 180 mg tablet 180 mg PO DAILY 07/10/24 07/10/24 07/09/24 History fluticasone propionate 50 1 spray intranasal DAILY 07/10/24 07/10/24 07/09/24 History mcg/actuation nasal spray,suspension metformin 500 mg tablet,extended 1,000 mg PO QAM 07/10/24 07/10/24 07/09/24 History release 24 hr amlodipine 5 mg tablet 10 mg (2 x 5 mg) PO DAILY #90 tabs 07/13/24 Unknown Rx aspirin 325 mg tablet 325 mg PO DAILY #90 tabs 07/13/24 Unknown Rx Allergies Allergy/AdvReac Type Severity Reaction Status Date / Time adhesive Allergy Intermediate ALGY-Rash Verified 08/15/24 12:26 ibuprofen Allergy ALGY-Rash Verified 08/15/24 12:26 Current Medications Generic Name Dose Route Start Last Admin Trade Name Freq PRN Reason Stop Dose Admin Sodium Chloride 1,000 mls @ 75 mls/hr 08/15/24 10:45 08/15/24 11:00 Sodium Chloride 0.9% IV 75 mls/hr .[id number] MCKINLEY Administration PFSH Acute 2 PFSH: Medical History (Updated 08/15/24 @ 14:32 by Mimi Aguilar MD) Prostate cancer History of benign prostatic hyperplasia Diabetes 1.5, managed as type 2 History of atrial flutter Hiatal hernia with GERD Degenerative arthritis Cochlear hearing loss Urinary retention Surgical History H/O circumcision History of cochlear implant History of rhinoplasty Hx of vasectomy History of tonsillectomy and adenoidectomy History of amputation of finger of right hand Hx of bilateral cataract extraction Hx of umbilical hernia repair S/P knee replacement Family History Family/Other Diabetes Dementia Cancer Breast cancer Mother , at age 37 Tuberculosis Lung disease Tuberculosis Father , at age 79 CAD (coronary artery disease) Denies family history of Clotting disorder Hyperlipidemia Psychiatric illness Chronic kidney disease (CKD) Suicide Anesthesia complication Bleeding disorder Hypertension Stroke Social History Smoking and tobacco/nicotine status: former use of tobacco/nicotine (Smoked a pipe for 40 years) Alcohol intake: current Alcohol intake frequency: few times a month Substance/Drug Use: unknown Adopted: No Caregiver/support person: No Lives independently: No Household members: spouse Marital status: Current occupational status: retired Current gender identity: Male Dietary Habits: Current diet type/program: regular During the past year weight has: remained stable Vitals/I&O/Wt Last Vital Signs Temp 98.1 F 08/15/24 08:02 Pulse 74 08/15/24 12:48 Resp 16 08/15/24 08:02 BP 152/75 08/15/24 12:48 Pulse Ox 92 08/15/24 12:48 O2 Del Method Room Air 08/15/24 12:48 Weight last 48 hrs Weight 200 lb Physical Exam 2 Const: COMMON NORMALS: no acute distress, average body habitus, patient oriented x3 and alert GENERAL APPEARANCE: cooperative and comfortable O RIENTATION/CONSCIOUSNESS: Yes awake HENMT: COMMON NORMALS: normocephalic and atraumatic HEAD & SCALP: n ormocephalic and atraumatic Eye: GENERAL EYE: appearance normal, both eyes and all related structures Chest: COMMONS NORMALS: normal inspection of the chest Resp: COMMON NORMALS: normal respiratory effort EFFORT & INSPECTION: Yes able to speak in complete sentences and Yes symmetric chest movement Extremity: LEFT LOWER EXTREMITY: Yes hip joint (Bruising and slight swelling) Left hip: Yes ROM (Not evaluated secondary to fracture) and Yes neurovascular exam (Intact distally) Neuro: COMMON NORMALS: patient oriented x3 SENSORIUM/ORIENTATION: Yes alert Psych: COMMON NORMALS: mental status grossly normal APPEARANCE: Yes grossly normal ATTITUDE: Yes calm and Yes engaged ATTENTION/CONCENTRATION: Yes attention grossly intact Skin: COMMON NORMALS: no rashes or lesions noted GENERAL SKIN EXAM: no rashes or lesions noted Urinary Catheter Management: Ruiz: Cath Placed During This Visit: yes Urinary Catheter Date of Insertion: 08/15/24 Urinary Catheter Time of Insertion: 14:00 Data 08/15/24 11:25 08/15/24 09:39 Other Imaging: My impression: I have personally reviewed the patient's imaging studies which were obtained while the patient was in the emergency department. The studies include left hip plain films as well as CT of the left hip and CT of the abdomen and pelvis. CT of the left hip demonstrates some irregularity within the acetabulum and inner wall of the acetabulum, but this is very subtle. CT scan was subsequently ordered. CT of the left hip demonstrated a mildly comminuted nondisplaced fracture of the acetabulum with involvement of the left inferior pubic ramus. There was some extraperitoneal hemorrhage but no evidence of intraperitoneal hemorrhage. There was also soft tissue hematoma superficial to the greater trochanter consistent with the patient's history of fall. Radiologist reading of the CT of the abdomen and pelvis demonstrated the acetabular fracture as noted. There was noted to be no major abdominal or pelvic visceral injury, hemoperitoneum, or lumbar compression fracture. A&P Assessment and plan (1) Acetabulum fracture, left: Patient was admitted through the emergency department with a nondisplaced acetabular fracture. There is certainly or concerns regarding further displacement should he be weightbearing. He will need to be nonweightbearing for 6 to 8 weeks. In the meantime, he will need to have his hemoglobin and hematocrit watched closely. He did have a drop this morning, and I have asked nursing to repeat his H&H. Additionally, we will have him work with physical therapy when the medical service feels that he is stable. At this point, he will remain on bedrest with PT privileges for ambulation nonweightbearing left lower extremity. Qualifiers: Encounter type: initial encounter Sublocation of acetabulum: u nspecified portion of acetabulum Fracture type: closed Fracture alignment: n ondisplaced Qualified Code(s): S32.402A - Unspecified fracture of left acetabulum, initial encounter for closed fracture (2) Fracture of left inferior pubic ramus: Qualifiers: Encounter type: initial encounter Fracture type: closed Qualified Code(s): S32.592A - Other specified fracture of left pubis, initial encounter for closed fracture Coding Level of Care Code Acute Code for Chg Fwd Diagnoses Closed nondisplaced fracture of left acetabulum, unspecified portion of acetabulum, initial encounter S32.402A Encounter type: initial encounter Sublocation of acetabulum: unspecified portion of acetabulum Fracture type: closed Fracture alignment: nondisplaced Closed fracture of left inferior pubic ramus, initial encounter S32.592A Encounter type: initial encounter Fracture type: closed
[2024-08-15 14:55] LABS: Bilirubin Urine Negative (Negative); Blood Urine 2+ (Negative); Glucose Urine UA Negative (Normal); Ketones Urine 1+ (Negative); Leukocyte Esterase Urine 2+ (Negative); Nitrate Urine Negative (Negative); Protein Urine Negative (Negative); Urine Appearance Clear (CLEAR); Urine Color Yellow (Yellow); pH Urine 8.5 (5-7)
[2024-08-15 15:01] LABS: Add Urine Microscopic? YES; Bacteria Urine None Seen /hpf; Hyaline Casts Urine 1.21 /lpf; RBC Urine 51-100 /hpf (0-2); Specific Gravity, Urine 1.038 (1.005-1.030); Squamous Epithelial Cell Urine 0-5 /hpf (0-5); WBC Urine 51-100 /hpf (0-5)
[2024-08-15 15:02] LABS: Add Urine Culture? Yes
[2024-08-15 15:37] LABS: Hematocrit 36.1 % (37-53)
--- NOTE | 2024-08-15 16:53 | PC.NURSE ---
Pt states that pain is dull in pelvis, but does not want medication.
[2024-08-15 17:15] LABS: Basophils % 0.4 %; Hematocrit 33.4 % (37-53); Lymphocytes # 0.9 10^3/uL (0.8-4.8); Lymphocytes % 9.4 %; Mean Corpuscular HGB Conc 32.6 g/dL (30-55); Mean Corpuscular Hemoglobin 30.2 pg (27-33); Mean Corpuscular Volume 92.5 fl (82-101); Mean Platelet Volume 9.5 fL (7.4-10.4); Monocytes % 11.1 %; Neutrophils # 7.24 10^3/uL (1.8-7.7); Neutrophils % 78.7 %; Nucleated Red Blood Cells % 0 %; Platelet Count 187 10^3/cmm (157-399); Red Blood Count 3.61 10^6/uL (3.85-5.65); Red Cell Distribution Width 13.9 % (12.1-15.1); White Blood Count 9.21 10^3/uL (3.29-11.43)
[2024-08-15] MEDS: oxyCODONE-APAP 5-325 mg Tablet 1 TAB PO (17:46)
[2024-08-16] VITALS (8 sets, daily range): BP systolic 123–162; BP diastolic 60–77; PULSE 65–80; RESP 14–18; TEMP 36.5–36.9; O2SAT 89–94
[2024-08-16] MEDS: sodium chloride 0.9% 1,000 ML 75 ML IV (00:18)
[2024-08-16 05:43] LABS: Basophils # 0.1 10^3/uL (0.0-0.1); Basophils % 1.2 %; Eosinophils # 0.2 10^3/uL (0.0-0.8); Eosinophils % 2.2 %; Hematocrit 28.4 % (37-53); Lymphocytes % 14.9 %; Mean Corpuscular HGB Conc 33.1 g/dL (30-55); Mean Corpuscular Hemoglobin 30.8 pg (27-33); Mean Corpuscular Volume 93.1 fl (82-101); Mean Platelet Volume 10.1 fL (7.4-10.4); Monocytes % 14.9 %; Neutrophils % 66.5 %; Nucleated Red Blood Cells % 0 %; Platelet Count 161 10^3/cmm (157-399); Red Blood Count 3.05 10^6/uL (3.85-5.65); Red Cell Distribution Width 14.3 % (12.1-15.1); White Blood Count 6.91 10^3/uL (3.29-11.43)
[2024-08-16 06:06] LABS: Alanine Aminotransferase 10 U/L (0-41); Albumin Level 3.1 g/dL (3.5-5.2); Alkaline Phosphatase 67 U/L (40-130); Anion Gap 11.1 (5-19); Aspartate Amino Transferase 15 U/L (0-40); Blood Urea Nitrogen 17 mg/dL (8-23); Calcium 7.8 mg/dL (8.5-10.5); Carbon Dioxide 22 mmol/L (22-29); Chloride 105 mmol/L (98-107); Creatinine Clr Calc Pharmacy 78.6236; Globulin 2.3 g/dL (1.3-4.6); Glucose 134 mg/dL (65-115); Magnesium 1.9 mg/dL (1.7-2.3); Osmolality Calculated 282 mOsm/kg (285-295); Phosphorus 3.4 mg/dL (2.5-4.5); Potassium 4.1 mmol/L (3.5-5.1); Sodium 134 mmol/L (136-145); Total Bilirubin 1.4 mg/dL (0.15-1.2); Total Protein 5.4 g/dL (6.6-8.7)
--- NOTE | 2024-08-16 10:12 | P.PN_ITS ---
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 in case there is a cardiac arrest but stating that he and his wanted full code for now Vitals/I&O/Wt Last Vital Signs Temp 98.4 F 08/16/24 07:23 Pulse 72 08/16/24 07:23 Resp 18 08/16/24 07:23 BP 162/77 08/16/24 07:23 Pulse Ox 94 08/16/24 04:00 O2 Del Method Aerosol Mask 08/16/24 04:00 O2 Flow Rate 1 08/16/24 04:00 08/15/24 08/16/24 08/16/24 22:59 06:59 14:59 Intake Total 240 / 240 997.5 / 1237.5 1240 / 1240 Output Total 1300 / 1300 150 / 1450 850 / 850 Balance -1060 / -1060 847.5 / -212.5 390 / 390 Weight last 48 hrs Weight 91.796 kg Weight 90.718 kg Weight 90.718 kg Physical Exam 2 Narrative: Awake and alert GCS 15 Lower extremity no significant swelling No neurovascular compromise of lower extremity Pleasant cooperative S1, S2 Currently on room air Hard of hearing Urinary Catheter Management: Ruiz: Cath Placed During This Visit: yes Reason for Continuing Indwelling Catheter: Other Urinary Catheter Date of Insertion: 08/15/24 Urinary Catheter Time of Insertion: 14:00 Data 08/16/24 04:41 08/16/24 04:41 A&P Assessment and plan (1) Acetabulum fracture, left: Qualifiers: Encounter type: initial encounter Fracture alignment: nondisplaced F racture type: closed Sublocation of acetabulum: unspecified portion of acetabulum Qualified Code(s): S32.402A - Unspecified fracture of left acetabulum, initial encounter for closed fracture (2) Fall: (3) History of atrial flutter: (4) Malignant neoplasm of prostate: (5) Hematoma: (6) Fracture of left inferior pubic ramus: Qualifiers: Encounter type: initial encounter Fracture type: closed Qualified Code(s): S32.592A - Other specified fracture of left pubis, initial encounter for closed fracture Plan Conservative management as per Dr. Peralta Continue PT Will need senior living placement Continue opioids with bowel regimen Patient is stating that he self caths at home 5-6 times a day for prostate cancer and does not want Ruiz catheter to be removed at this point Wanting senior living placement Hemoglobin 9.4, monitor for now , CT scan of hip picked up small soft tissue hematoma superficial to the greater trochanter, monitor for now, For DVT prophylaxis using SCDs, continue physical therapy, in case of further drop in hemoglobin we may need to repeat a CT scan of hip area Attestations 2 Medical Necessity Statement*: Continue comanagement Diagnoses Closed nondisplaced fracture of left acetabulum, unspecified portion of acetabulum, initial encounter S32.402A Encounter type: initial encounter Fracture alignment: nondisplaced Fracture type: closed Sublocation of acetabulum: unspecified portion of acetabulum Fall W19.XXXA History of atrial flutter Z86.79 Malignant neoplasm of prostate C61 Hematoma T14.8XXA Closed fracture of left inferior pubic ramus, initial encounter S32.592A Encounter type: initial encounter Fracture type: closed
[2024-08-16] MEDS: aspirin 325 mg EC Tablet PO (10:50)
--- NOTE | 2024-08-16 11:09 | P.PN_ITS ---
Subjective 2 Subjective: Patient is appropriate candidate for rehabilitation. He already has balance issues according to his daughter, and would likely not be safe at home. He is asking to be able to get up to a bedside commode, but physical therapy is not available today. I have advised him I think it would be safest if his first upright position was accomplished with physical therapy. Medications: Reviewed: Yes Vitals/I&O/Wt Last Vital Signs Temp 98.4 F 08/16/24 07:23 Pulse 72 08/16/24 07:23 Resp 18 08/16/24 07:23 BP 162/77 08/16/24 07:23 Pulse Ox 94 08/16/24 04:00 O2 Del Method Aerosol Mask 08/16/24 04:00 O2 Flow Rate 1 08/16/24 04:00 08/15/24 08/16/24 08/16/24 22:59 06:59 14:59 Intake Total 240 / 240 997.5 / 1237.5 1240 / 1240 Output Total 1300 / 1300 150 / 1450 850 / 850 Balance -1060 / -1060 847.5 / -212.5 390 / 390 Weight last 48 hrs Weight 202 lb 6 oz Weight 200 lb Weight 200 lb Physical Exam 2 Const: COMMON NORMALS: no acute distress, average body habitus, patient oriented x3 and alert GENERAL APPEARANCE: cooperative and comfortable O RIENTATION/CONSCIOUSNESS: Yes awake HENMT: COMMON NORMALS: normocephalic and atraumatic HEAD & SCALP: n ormocephalic and atraumatic Eye: GENERAL EYE: appearance normal, both eyes and all related structures Chest: COMMONS NORMALS: normal inspection of the chest Resp: COMMON NORMALS: normal respiratory effort EFFORT & INSPECTION: Yes able to speak in complete sentences and Yes symmetric chest movement Extremity: OTHER: Neurologically intact with no evidence of DVT in the left lower extremity. He is complaining of back pain, but is laying comfortably in bed when I have visited him. Neuro: COMMON NORMALS: patient oriented x3 SENSORIUM/ORIENTATION: Yes alert Psych: COMMON NORMALS: mental status grossly normal APPEARANCE: Yes grossly normal ATTITUDE: Yes calm and Yes engaged ATTENTION/CONCENTRATION: Yes attention grossly intact Skin: COMMON NORMALS: no rashes or lesions noted GENERAL SKIN EXAM: no rashes or lesions noted Urinary Catheter Management: Ruiz: Cath Placed During This Visit: yes Reason for Continuing Indwelling Catheter: Other Urinary Catheter Date of Insertion: 08/15/24 Urinary Catheter Time of Insertion: 14:00 Data 08/16/24 04:41 08/16/24 04:41 Micro: Microbiology 08/15/24 14:03 Urine Culture - Preliminary Urine,Clean Catch Staphylococcus species A&P Assessment and plan (1) Acetabulum fracture, left: Patient was admitted through the emergency department with a nondisplaced acetabular fracture. There is certainly concern regarding further displacement should he be weightbearing. He will need to be nonweightbearing for 6 to 8 weeks. In the meantime, he will need to have his hemoglobin and hematocrit watched closely. Serial H&H's have indicated a slight drop, but for the most part, his H&H has been stable. Physical therapy is not available today, but when they return tomorrow, he needs to be ambulated nonweightbearing on the left lower extremity. He may touch his foot down for balance. He is already requesting a bedside commode. At this point, he will need to have his hemoglobin further evaluated once he is able to be ambulatory. He would be appropriate [facility] at the time of discharge from an orthopedic perspective. Qualifiers: Encounter type: initial encounter Fracture alignment: nondisplaced F racture type: closed Sublocation of acetabulum: unspecified portion of acetabulum Qualified Code(s): S32.402A - Unspecified fracture of left acetabulum, initial encounter for closed fracture (2) Fracture of left inferior pubic ramus: Qualifiers: Encounter type: initial encounter Fracture type: closed Qualified Code(s): S32.592A - Other specified fracture of left pubis, initial encounter for closed fracture Attestations 2 Medical Necessity Statement*: Per hospitalist team Coding Level of Care Code Acute Code for Chg Fwd Diagnoses Closed nondisplaced fracture of left acetabulum, unspecified portion of acetabulum, initial encounter S32.402A Encounter type: initial encounter Fracture alignment: nondisplaced Fracture type: closed Sublocation of acetabulum: unspecified portion of acetabulum Closed fracture of left inferior pubic ramus, initial encounter S32.592A Encounter type: initial encounter Fracture type: closed
[2024-08-16 11:44] LABS: Glucose Point of Care 189 mg/dL (70-110)
[2024-08-16] MEDS: insulin lispro 100 unit/1 mL SUBCUT (11:50)
[2024-08-16 16:46] LABS: Glucose Point of Care 133 mg/dL (70-110)
[2024-08-16 17:18] LABS: Basophils # 0.1 10^3/uL (0.0-0.1); Basophils % 0.8 %; Eosinophils # 0.2 10^3/uL (0.0-0.8); Eosinophils % 2.9 %; Hematocrit 31.4 % (37-53); Lymphocytes # 1.1 10^3/uL (0.8-4.8); Lymphocytes % 14.4 %; Mean Corpuscular HGB Conc 32.2 g/dL (30-55); Mean Corpuscular Hemoglobin 29.8 pg (27-33); Mean Corpuscular Volume 92.6 fl (82-101); Mean Platelet Volume 9.6 fL (7.4-10.4); Monocytes # 1.1 10^3/uL (0.2-0.9); Monocytes % 14.4 %; Neutrophils # 4.94 10^3/uL (1.8-7.7); Neutrophils % 67.2 %; Nucleated Red Blood Cells % 0 %; Platelet Count 169 10^3/cmm (157-399); Red Blood Count 3.39 10^6/uL (3.85-5.65); Red Cell Distribution Width 14.2 % (12.1-15.1); White Blood Count 7.35 10^3/uL (3.29-11.43)
[2024-08-16 20:20] LABS: Glucose Point of Care 245 mg/dL (70-110)
--- NOTE | 2024-08-16 20:54 | PC.NURSE ---
Dr. Zazueta gave order to continue patient's home Levalbuterol inhaler.
[2024-08-16] MEDS: levalbuterol 1.25 mg/3 mL Neb INHALATION (21:45)
[2024-08-17] VITALS (11 sets, daily range): BP systolic 90–148; BP diastolic 53–72; PULSE 52–106; RESP 14–18; TEMP 36.4–37; O2SAT 90–97
--- NOTE | 2024-08-17 06:17 | PC.NURSE ---
Patient's home Xopenex in patient bin.
[2024-08-17] MEDS: levoFLOXacin 750 mg Tablet PO (06:19)
[2024-08-17 06:22] LABS: Glucose Point of Care 152 mg/dL (70-110)
[2024-08-17] MEDS: [UNRECOGNIZED DRUG - REMARK] INHALATION ×2 (06:29→22:20)
[2024-08-17] MEDS: oxyCODONE-APAP 5-325 mg Tablet 1 TAB PO (06:33)
[2024-08-17 06:46] LABS: Basophils # 0.1 10^3/uL (0.0-0.1); Basophils % 1.2 %; Eosinophils # 0.3 10^3/uL (0.0-0.8); Eosinophils % 4.1 %; Hematocrit 31.7 % (37-53); Lymphocytes # 1.1 10^3/uL (0.8-4.8); Lymphocytes % 16.4 %; Mean Corpuscular HGB Conc 31.9 g/dL (30-55); Mean Corpuscular Hemoglobin 29.6 pg (27-33); Monocytes # 1.1 10^3/uL (0.2-0.9); Monocytes % 17.2 %; Neutrophils # 3.97 10^3/uL (1.8-7.7); Neutrophils % 60.8 %; Nucleated Red Blood Cells % 0 %; Platelet Count 150 10^3/cmm (157-399); Red Blood Count 3.41 10^6/uL (3.85-5.65); Red Cell Distribution Width 14.1 % (12.1-15.1); White Blood Count 6.53 10^3/uL (3.29-11.43)
[2024-08-17] MEDS: insulin lispro 100 unit/1 mL SUBCUT ×2 (07:56→11:45)
[2024-08-17] MEDS: atenolol 50 mg Tablet 25 MG PO (07:59)
[2024-08-17] MEDS: aspirin 325 mg EC Tablet PO ×2 (07:59→17:04)
--- NOTE | 2024-08-17 10:09 | PC.SOCIAL ---
IMM Update pg 2 of IMM Updated and reviewed w/ patient. Copy provided and copy dated, initialed and placed in chart.
--- NOTE | 2024-08-17 10:40 | PC.CHAP ---
Pastoral Care Encounter/Spiritual Assessment Type of Contact [] Declined wind energy engineer visit [] Patient/Family/Request visit [] Outpatient visit [] Follow-up visit [] Physician referral [] Code/Alert [x] Routine visit [] Staff referral [] Actively dying [] Patient sleeping [] Family support [] [] Out of room [] Palliative care [] [] Receiving care in room [] Pre-surgical visit [] Trauma [] Long length of stay [] ICU visit [] Other: Relational/Emotional Strength [] Patient feels connected with others/family/visitors/staff [] Distress [] Loneliness/isolation [] Abandonment Spirituality of Patient [x] Person of [place] [] Attends Denominational of their [place] [x] Believes in Prayer [] Reads Bible or Nondenominational materials [] There are Spiritual issues to be addressed Sealer [employer] Interventions [x] Prayer [x] Active listening [] Non-anxious presence [] Spiritual/emotional support [] Crisis/trauma care [] Spiritual counseling [] Bereavement support [] Provided bereavement packet [x] Provided Bible/devotional materials [] Provided toy/stuffed animal, coloring book to patient or family member [] Provided Communion [] Anointing/Alexis [] Salvation [x] Completed spiritual assessment [] Other: Impact on Illness or Injury [] Angry [] Fearful [] Anxious [] Often cries [] Exhaustion [] Unable to work [] Unable to attend jehovah's witness [] Unable to walk/stand [] Unable to read [] Unable to drive [] Unable to eat/drink [] Unable to sleep [] Unable to be with family [] Patient intubated [] Other: Summary Time spent with patient 5 min
[2024-08-17 10:48] LABS: Glucose Point of Care 201 mg/dL (70-110)
--- NOTE | 2024-08-17 12:20 | P.PN_ITS ---
Subjective 2 Subjective: Patient is stating that he would require pain medication because he work with PT, recorded bradycardia, hold atenolol dose now Will remove Ruiz catheter by tomorrow Continue opioids along bowel regimen I have increased his aspirin dose to therapeutic regimen twice a day Vitals/I&O/Wt Last Vital Signs Temp 97.7 F 08/17/24 11:39 Pulse 52 L 08/17/24 11:39 Resp 16 08/17/24 11:39 BP 111/58 08/17/24 11:39 Pulse Ox 93 08/17/24 11:39 O2 Del Method Room Air 08/17/24 11:39 O2 Flow Rate 2 08/17/24 04:00 08/16/24 08/17/24 08/17/24 22:59 06:59 14:59 Intake Total 480 / 1960 480 / 480 Output Total 1999 / 0 1050 / 1050 Balance -1520 / -890 -570 / -570 Weight last 48 hrs Weight 91.626 kg Weight 91.796 kg Weight 90.718 kg Physical Exam 2 Narrative: Hemodynamically stable Bradycardia Pleasant appearing Ruiz catheter in place GCS 15 Nonfocal neuroexam Work with PT Urinary Catheter Management: Ruiz: Cath Placed During This Visit: yes Reason for Continuing Indwelling Catheter: Acute Urinary Retention or Obstruction Urinary Catheter Date of Insertion: 08/15/24 Urinary Catheter Time of Insertion: 14:00 Data 08/17/24 06:15 08/16/24 04:41 Micro: Microbiology 08/15/24 14:03 Urine Culture - Final Urine,Clean Catch Staphylococcus epidermidis A&P Assessment and plan (1) History of atrial flutter: (2) Bradycardia: (3) UTI (urinary tract infection): (4) Malignant neoplasm of prostate: (5) Acetabulum fracture, left: Qualifiers: Encounter type: initial encounter Fracture alignment: nondisplaced F racture type: closed Sublocation of acetabulum: unspecified portion of acetabulum Qualified Code(s): S32.402A - Unspecified fracture of left acetabulum, initial encounter for closed fracture (6) Fracture of left inferior pubic ramus: Qualifiers: Encounter type: initial encounter Fracture type: closed Qualified Code(s): S32.592A - Other specified fracture of left pubis, initial encounter for closed fracture (7) Fall: (8) Hematoma: Plan Patient complaining of pain after PT We are resuming his oxycodone I increase his aspirin dose to twice a day regimen his hemoglobin has remained stable, at this point I do not see any signs of worsening of hematoma clinically Blood pressure stable, bradycardia noted hold atenolol Ruiz catheter to be removed before discharge then he will self cath Urine culture showing Staphylococcus species I have changed his antibiotics to Augmentin instead of levofloxacin Attestations 2 Medical Necessity Statement*: Discharge likely by tomorrow Diagnoses History of atrial flutter Z86.79 Bradycardia R00.1 UTI (urinary tract infection) N39.0 Malignant neoplasm of prostate C61 Closed nondisplaced fracture of left acetabulum, unspecified portion of acetabulum, initial encounter S32.402A Encounter type: initial encounter Fracture alignment: nondisplaced Fracture type: closed Sublocation of acetabulum: unspecified portion of acetabulum Closed fracture of left inferior pubic ramus, initial encounter S32.592A Encounter type: initial encounter Fracture type: closed Fall W19.XXXA Hematoma T14.8XXA
[2024-08-17 16:47] LABS: Glucose Point of Care 120 mg/dL (70-110)
[2024-08-17] MEDS: amoxicillin-clav 875-125 mg Tablet 1 TAB PO (17:04)
[2024-08-17 21:01] LABS: Glucose Point of Care 174 mg/dL (70-110)
[2024-08-18] VITALS: BP 153/73; PULSE 70; RESP 16; TEMP 36.7; O2SAT 94
[2024-08-18 04:00] VITALS: BP 168/86; PULSE 60; RESP 18; TEMP 36.4; O2SAT 91
[2024-08-18 06:21] LABS: SARS Covid-2 Antigen negative (Negative)
[2024-08-18 07:07] LABS: Glucose Point of Care 164 mg/dL (70-110)
[2024-08-18] MEDS: aspirin 325 mg EC Tablet PO (07:38)
[2024-08-18] MEDS: insulin lispro 100 unit/1 mL SUBCUT ×2 (07:38→12:13)
[2024-08-18 07:42] VITALS: BP 177/77; PULSE 58; RESP 17; TEMP 36.6; O2SAT 95
--- NOTE | 2024-08-18 08:04 | P.DS_ITS ---
Discharge Providers Date of Admission: 08/15/24 10:20 Date of Discharge: August 17, 2024 Attending Provider at Admission: Adrianne Willett MD Attending Provider at Discharge: Phoenix Merritt MD Primary Care Provider: Tamiko Louis DO Diagnoses at Discharge Discharge Diagnosis (1) Acetabulum fracture, left: Status: Acute Qualifiers: Encounter type: initial encounter Fracture alignment: nondisplaced Fracture type: closed Sublocation of acetabulum: unspecified portion of acetabulum Qualified Code(s): S32.402A - Unspecified fracture of left acetabulum, initial encounter for closed fracture (2) Fracture of left inferior pubic ramus: Status: Acute Qualifiers: Encounter type: initial encounter Fracture type: closed Qualified Code(s): S32.592A - Other specified fracture of left pubis, initial encounter for closed fracture Reason for Visit Reason for Visit: left hip pain s/p fall Hospital Course Hospital Course Omar Daniel is a 89 year old male With past medical history of prostate cancer, BPH, and diabetes, atrial fibrillation, hiatal hernia with GERD, degenerative arthritis, urinary retention presented to the hospital today after he fell secondary to tripping at home in the morning. He hit his head and fell on his left side and hurt his hip. He was diagnosed with established fracture with pubic rami fracture. Dr. Peralta evaluated him and recommended nonoperative medical management with nonweightbearing protocol. Patient will need nursing ho me placement at least 4 to 6 weeks. His hemoglobin remained stable despite the hematoma. He was kept on high-dose aspirin which she normally takes for his underlying A-fib. We are doing aspirin twice a day regimen for as DVT prophylaxis for now, patient does self cath at home for his history of BPH and prostate cancer in the hospital he was treated with antibiotics for UTI, urine culture showing staph species.Patient is wearing a Holter monitor to monitor his bradycardia, in the hospital his lowest heart rate recorded was around 52, he remained hemodynamically stable, we have continued low-dose atenolol. Physical Exam Narrative: Patient is pleasant and cooperative Nonfocal neuroexam Hemoglobin is stable, no postop complication Hemodynamically stable Working with PT Urinary Catheter Management: Ruiz: Cath Placed During This Visit: yes Reason for Continuing Indwelling Catheter: Acute Urinary Retention or Obstruction Urinary Catheter Date of Insertion: 08/15/24 Urinary Catheter Time of Insertion: 14:00 Discharge Data Studies Completed and Pending Completed Studies During Hospitalization Category Date Time Status CT abdomen pelvis w con* [id number] Stat Cat Scan 08/15/24 11:[address] cervical spin wo con* [id number] Stat Cat Scan 08/15/24 08:[address] head wo con* [id number] Stat Cat Scan 08/15/24 08:[address] hip LT wo con* [id number] Stat Cat Scan 08/15/24 08:03 Completed XR elbow LT min 3V* [id number] Stat Exams 08/15/24 08:03 Completed XR hip LT 2-3V wo/w pel* [id number] Stat Exams 08/15/24 08:03 Completed Pending at discharge Category Date Time Status Urine Culture Routine Lab 08/15/24 14:03 Results Radiology Impressions Cervical Spine CT 08/15/24 08:03 IMPRESSION: No evidence for acute cervical fracture. Elbow X-Ray 08/15/24 08:03 IMPRESSION: No acute osseous abnormality Head CT 08/15/24 08:03 IMPRESSION: No acute intracranial process. Hip CT 08/15/24 08:03 IMPRESSION: 1. Mildly comminuted nondisplaced fractures of the left acetabulum and left inferior pubic ramus with mild hemorrhage within the left obturator musculature and extraperitoneal hemorrhage within the left pelvis. 2. [id number] soft tissue hematoma superficial to the greater trochanter. 3. No evidence of acute femoral fracture. Hip/Pelvis X-Ray 08/15/24 08:03 IMPRESSION: Subtle areas of lucency involving the left inferior pubic ramus and medial left acetabulum which may reflect nondisplaced fractures however artifact is not excluded. Correlation with CT of the left hip is suggested Abdomen/Pelvis CT 08/15/24 11:18 IMPRESSION: 1. Acute nondisplaced fractures of the left acetabulum and left pubic bone, further discussed in the CT left hip report, dictated separately. 2. No evidence of major abdominal or pelvic visceral injury, hemoperitoneum, or lumbar compression fracture 3. Constipation 4. Cholelithiasis 5. Thickening and trabeculation of the bladder wall with multiple diverticula suspicious for sequelae of chronic bladder outlet obstruction Laboratory Results WBC 6.53 10^3/uL (3.29-11.43) 08/17/24 06:15 WBC Cancelled 08/17/24 06:15 Corrected WBC Cancelled 08/17/24 06:15 RBC 3.41 10^6/uL (3.85-5.65) L 08/17/24 06:15 RBC Cancelled 08/17/24 06:15 Hgb 10.10 g/dL (11.27-16.99) L 08/17/24 06:15 Hgb Cancelled 08/17/24 06:15 Hct 31.7 % (37-53) L 08/17/24 06:15 Hct Cancelled 08/17/24 06:15 MCV 93.0 fl (82-101) 08/17/24 06:15 MCV Cancelled 08/17/24 06:15 MCH 29.6 pg (27-33) 08/17/24 06:15 MCH Cancelled 08/17/24 06:15 MCHC 31.9 g/dL (30-55) 08/17/24 06:15 MCHC Cancelled 08/17/24 06:15 RDW 14.1 % (12.1-15.1) 08/17/24 06:15 RDW Cancelled 08/17/24 06:15 Plt Count 150 10^3/cmm (157-399) L 08/17/24 06:15 Plt Count Cancelled 08/17/24 06:15 MPV 10.0 fL (7.4-10.4) 08/17/24 06:15 MPV Cancelled 08/17/24 06:15 Gran % Cancelled 08/17/24 06:15 Neut % (Auto) 60.8 % 08/17/24 06:15 Neut % (Auto) Cancelled 08/17/24 06:15 Lymph % (Auto) 16.4 % 08/17/24 06:15 Lymph % (Auto) Cancelled 08/17/24 06:15 [place] % (Auto) 17.2 % 08/17/24 06:15 [place] % (Auto) Cancelled 08/17/24 06:15 Eos % (Auto) 4.1 % 08/17/24 06:15 Eos % (Auto) Cancelled 08/17/24 06:15 Baso % (Auto) 1.2 % 08/17/24 06:15 Baso % (Auto) Cancelled 08/17/24 06:15 Neut # (Auto) 3.97 10^3/uL (1.8-7.7) 08/17/24 06:15 Neut # (Auto) Cancelled 08/17/24 06:15 Lymph # (Auto) 1.1 10^3/uL (0.8-4.8) 08/17/24 06:15 Lymph # (Auto) Cancelled 08/17/24 06:15 [place] # (Auto) 1.1 10^3/uL (0.2-0.9) H 08/17/24 06:15 [place] # (Auto) Cancelled 08/17/24 06:15 Eos # (Auto) 0.3 10^3/uL (0.0-0.8) 08/17/24 06:15 Eos # (Auto) Cancelled 08/17/24 06:15 Baso # (Auto) 0.1 10^3/uL (0.0-0.1) 08/17/24 06:15 Baso # (Auto) Cancelled 08/17/24 06:15 Absolute Gran (auto) Cancelled 08/17/24 06:15 Nucleated RBC % (auto) 0 % 08/17/24 06:15 Nucleated RBC % (auto) Cancelled 08/17/24 06:15 Nucleated RBCs # 0.0 /100WBC 08/17/24 06:15 Nucleated RBCs # Cancelled 08/17/24 06:15 PT 13.40 SECONDS (12.1-14.9) 08/15/24 09:39 INR 0.99 (0.8-1.2) 08/15/24 09:39 Sodium 134 mmol/L (136-145) L 08/16/24 04:41 Potassium 4.1 mmol/L (3.5-5.1) 08/16/24 04:41 Chloride 105 mmol/L (98-107) 08/16/24 04:41 Carbon Dioxide 22 mmol/L (22-29) 08/16/24 04:41 Anion Gap 11.1 (5-19) 08/16/24 04:41 BUN 17 mg/dL (8-23) 08/16/24 04:41 Creatinine 0.6 mg/dL (0.7-1.2) L 08/16/24 04:41 GFR Calculation Not Reportable 08/16/24 04:41 Glucose 134 mg/dL (65-115) H 08/16/24 04:41 POC Glucose 201 mg/dL (70-110) H 08/17/24 10:37 Calculated Osmolality 282 mOsm/kg (285-295) L 08/16/24 04:41 Calcium 7.8 mg/dL (8.5-10.5) L 08/16/24 04:41 Phosphorus 3.4 mg/dL (2.5-4.5) 08/16/24 04:41 Magnesium 1.9 mg/dL (1.7-2.3) 08/16/24 04:41 Total Bilirubin 1.4 mg/dL (0.15-1.2) H 08/16/24 04:41 AST 15 U/L (0-40) 08/16/24 04:41 ALT 10 U/L (0-41) 08/16/24 04:41 Alkaline Phosphatase 67 U/L (40-130) 08/16/24 04:41 Total Protein 5.4 g/dL (6.6-8.7) L D 08/16/24 04:41 Albumin 3.1 g/dL (3.5-5.2) L 08/16/24 04:41 Globulin 2.3 g/dL (1.3-4.6) 08/16/24 04:41 Lipase 24 U/L (13-60) 08/15/24 09:39 Urine Color Yellow (Yellow) 08/15/24 14:03 Urine Appearance Clear (CLEAR) 08/15/24 14:03 Urine pH 8.5 (5-7) A 08/15/24 14:03 Ur Specific [place] 1.038 (1.005-1.030) H 08/15/24 14:03 Urine Protein Negative (Negative) 08/15/24 14:03 Urine Glucose (UA) Negative (Normal) 08/15/24 14:03 Urine Ketones 1+ (Negative) H 08/15/24 14:03 Urine Blood 2+ (Negative) A 08/15/24 14:03 Urine Nitrate Negative (Negative) 08/15/24 14:03 Urine Bilirubin Negative (Negative) 08/15/24 14:03 Urine Urobilinogen 1.0 mg/dL (Negative) 08/15/24 14:03 Ur Leukocyte Esterase 2+ (Negative) A 08/15/24 14:03 Urine RBC 51-100 /hpf (0-2) H 08/15/24 14:03 Urine WBC 51-100 /hpf (0-5) H 08/15/24 14:03 Ur Squamous Epith Cells 0-5 /hpf (0-5) 08/15/24 14:03 Amorphous Sediment Not Reportable 08/15/24 14:03 Urine Bacteria None seen /hpf (NONE) 08/15/24 14:03 Hyaline Casts 1.21 /lpf 08/15/24 14:03 Vitals Last Vital Signs Temp 97.7 F 08/17/24 11:39 Pulse 52 L 08/17/24 11:39 Resp 16 08/17/24 11:39 BP 111/58 08/17/24 11:39 Pulse Ox 93 08/17/24 11:39 O2 Del Method Room Air 08/17/24 11:39 O2 Flow Rate 2 08/17/24 04:00 Discharge Plan Discharge Patient Disposition: Xfer SNF Condition: Stable Prescriptions: New amoxicillin-pot clavulanate 875-125 mg Tablet 1 tab PO BID Qty: 6 0RF aspirin 325 mg tablet 325 mg PO BID Qty: 60 0RF Continued azelastine 137 mcg (0.1 %) aerosol,spray 1 spray intranasal BID PRN (Reason: Allergy Symptoms) Rx Instructions: administer into each nostril levalbuterol tartrate [Xopenex HFA] 45 mcg/actuation HFA aerosol inhaler 2 inh inhalation Q6H PRN (Reason: Shortness Of Breath) Refresh Liquigel 1 % drops, liquid gel 2 drp ophthalmic (eye) BID atenolol 25 mg tablet 25 mg PO DAILY vitamin [id number] acid 0.5-1 mg Tablet 1 tab PO DAILY ezetimibe-simvastatin [Vytorin 10-20] 10-20 mg Tablet 1 tab PO QPM Men's Daily Formula 400-20-300 mcg Tablet 1 tab PO DAILY esomeprazole magnesium 40 mg capsule,delayed release(DR/EC) 40 mg PO DAILY PRN (Reason: Acid Reflux) fexofenadine 180 mg tablet 180 mg PO DAILY fluticasone propionate 50 mcg/actuation spray,suspension 1 spray INTRANASAL DAILY metformin 500 mg tablet extended release 24 hr 1,000 mg PO QAM amlodipine 5 mg Tablet 10 mg PO DAILY Qty: 90 0RF Changed aspirin 325 mg tablet 325 mg PO BIDWMEAL Qty: 90 0RF Discharge Orders: Discharge Order (Routine); Ordered 08/18/24 Ordered By: Phoenix Merritt Referrals: [facility] [Outside] Mimi Aguilar MD [Physician] - 08/31/24 1:45 pm () Tamiko Louis DO [Primary Care Provider] - Discharge Activity: Limit activity as instructed, Use walker/crutches as instructed and As per PT/OT instructions Patient Instructions: Amoxicillin/Clavulanate Potassium (By mouth), Pelvic Fracture (DC), Hematoma (ED) Activity Restrictions/Additional Instructions: Nonweightbearing to left lower extremity. May touchdown for balance. Work with walker and strengthening through physical therapy. Discharge Attestations Time Spent in Discharge Care*: greater than 30 min Quality Metrics Clinical Quality Measures [ No reported AMI, CVA or VTE this stay] Coding Level of Care Code Acute Code for Chg Fwd Diagnoses Closed nondisplaced fracture of left acetabulum, unspecified portion of acetabulum, initial encounter S32.402A Encounter type: initial encounter Fracture alignment: nondisplaced Fracture type: closed Sublocation of acetabulum: unspecified portion of acetabulum Closed fracture of left inferior pubic ramus, initial encounter S32.592A Encounter type: initial encounter Fracture type: closed
[2024-08-18 08:10] VITALS: PULSE 71; RESP 20; O2SAT 92
[2024-08-18] MEDS: amlodipine 5 mg Tablet 10 MG PO (08:41)
[2024-08-18] MEDS: amoxicillin-clav 875-125 mg Tablet 1 TAB PO (08:41)
[2024-08-18] MEDS: [UNRECOGNIZED DRUG - REMARK] INHALATION (08:43)
--- NOTE | 2024-08-18 10:42 | PC.NURSE ---
Report: Report called to Odalis at [facility]
[2024-08-18 11:40] VITALS: BP 111/62; PULSE 61; RESP 17; TEMP 36.6; O2SAT 92
[2024-08-18 11:42] LABS: Glucose Point of Care 195 mg/dL (70-110)
[2024-08-18 12:00] VITALS: BP 111/62; PULSE 61; RESP 17; TEMP 36.6
== END 2024-08-18 13:25 | disposition skilled nursing facility (03) | DRG 536 ==
LOC: ER 10:25 → MEDSURG 11:26 → ICU 13:03 → MEDSURG 13:15
PROVIDERS: Specialist; Admitting Provider Internal Medicine; Emergency Provider Emergency Medicine; PCP Family Medicine; Visit Provider Internal Medicine
DX: S32.402A Unspecified fracture of left acetabulum, initial encounter for closed fracture (principal); S32.592A Other specified fracture of left pubis, initial encounter for closed fracture; N39.0 Urinary tract infection, site not specified; E13.9 Other specified diabetes mellitus without complications; I48.91 Unspecified atrial fibrillation; K21.9 Gastro-esophageal reflux disease without esophagitis; B95.8 Unspecified staphylococcus as the cause of diseases classified elsewhere; R33.9 Retention of urine, unspecified; Z85.46 Personal history of malignant neoplasm of prostate; Z86.73 Personal history of transient ischemic attack (TIA), and cerebral infarction without residual deficits; Z79.84 Long term (current) use of oral hypoglycemic drugs; Z87.891 Personal history of nicotine dependence; Z79.82 Long term (current) use of aspirin; W01.0XXA Fall on same level from slipping, tripping and stumbling without subsequent striking against object, initial encounter
CPT/HCPCS: 36415; 36416; 51702; 70450; 72125; 73080; 73502; 73700; 74177; 80053; 81001; 82962; 83690; 83735; 84100; 85014; 85018; 85025; 85610; 87077; 87086; 87186; 87426; 94640; 94664; 96372; 97110; 97161; 97166; 97530; 99285; J1815; J7030; J7614

== ENCOUNTER → 2024-08-31 13:50 | Outpatient (BNVA) | payer MEDICARE, OTHER, SELFPAY | PROVIDERS: PCP Family Medicine; Visit Provider Specialist | DX: S72.002A Fracture of unspecified part of neck of left femur, initial encounter for closed fracture (principal); S32.592A Other specified fracture of left pubis, initial encounter for closed fracture; S32.402A Unspecified fracture of left acetabulum, initial encounter for closed fracture; X58.XXXA Exposure to other specified factors, initial encounter | CPT/HCPCS: 27197; 73523; 99213 ==

== ENCOUNTER → 2024-10-05 15:27 | Outpatient (BNVA) | payer MEDICARE, OTHER, SELFPAY | PROVIDERS: PCP Family Medicine; Visit Provider Specialist | DX: S32.592A Other specified fracture of left pubis, initial encounter for closed fracture (principal); S32.402A Unspecified fracture of left acetabulum, initial encounter for closed fracture; X58.XXXA Exposure to other specified factors, initial encounter | CPT/HCPCS: 27197; 73502; 99214 ==